=== PATIENT | female | born 1970 | race Caucasian/White ===

== ENCOUNTER 2020-05-24 07:28 | Outpatient (REF) | payer MEDICARE, MEDICAID, SELFPAY ==
--- NOTE | 2020-05-24 07:30 | MR_ITS ---
MR LUMBAR SPINE WITHOUT IV CONTRAST CLINICAL INFORMATION: Severe right S1 radiculopathy. Rule out disc herniation COMPARISON: Lumbar spine MRI 03/11/2018. TECHNIQUE: MRI of the lumbar spine was obtained using routine sequences without contrast. FINDINGS: Hypoplastic ribs present at the lowermost thoracic type segment. 5 nonrib-bearing lumbar-type vertebral bodies. There is slight grade 1 retrolisthesis of L2 on L3 and L3 on L4. Lumbar alignment is otherwise maintained. The vertebral body heights are maintained. There is disc desiccation at the L1-L2, L2-L3, L3-L4, and L5-S1 levels. There is mild disc volume loss at L5-S1. Conus terminates at the T12 level. There is a fatty filum. There are no significant soft tissue findings. L1-L2: Small annular disc bulge exhibiting a dorsal annular fissure similar to the previous study. No central canal stenosis. No foraminal stenosis. L2-L3: There is grade 1 retrolisthesis. Small annular disc bulge exhibiting a dorsal annular fissure. Mild bilateral facet arthropathy. No central canal stenosis. Mild foraminal encroachment bilaterally. L3-L4: Grade 1 retrolisthesis. There is a right paracentral/right lateral disc protrusion associated with an annular fissure continues to result in mild to moderate right foraminal stenosis, likely contacting the exiting right L3 nerve root at the right foraminal/extraforaminal junction. Moderate bilateral facet arthropathy and ligamentum flavum thickening. No central canal stenosis and a left foraminal stenosis. L4-L5: There is a small annular disc bulge and there is moderate bilateral facet arthropathy and ligamentum flavum thickening. There is no central canal stenosis. A new right foraminal disc protrusion results in mild right foraminal encroachment without exiting nerve root compression. L5-S1: There is a new large inferiorly migrating right paracentral disc extrusion that compresses the traversing right S1 nerve root within the right S1 lateral recess. IMPRESSION: - At L5-S1, there is a new large inferiorly migrating right paracentral disc extrusion that compresses the traversing right S1 nerve root within the right S1 lateral recess. - At L4-L5, there is a new right foraminal disc protrusion that results in mild right foraminal encroachment without exiting nerve root compression. - At L3-L4, a right paracentral/right lateral disc protrusion associated with an annular fissure continues to result in mild to moderate right foraminal stenosis, likely contacting the exiting right L3 nerve root at the right foraminal/extraforaminal junction.
== END 2020-05-24 07:29 | disposition home or self-care (01) ==
LOC: HO.MRI 07:28
PROVIDERS: PCP Internal Medicine Medical Oncology; Visit Provider Psychiatry & Neurology Neurology
DX: M54.17 Radiculopathy, lumbosacral region (principal); Z85.3 Personal history of malignant neoplasm of breast
CPT/HCPCS: 72148

== ENCOUNTER 2020-06-20 08:47 | Day surgery (SDC) | payer MEDICARE, MEDICAID, SELFPAY ==
[2020-06-14 11:38] VITALS: BMI 22.4
--- NOTE | 2020-06-19 09:48 | HO.ANESPROP2 ---
HPI - Anesthesia Eval Consult details Narrative: 49yo F for Colonscopy [facility] Past Medical History Medical History Anxiety Breast cancer Degenerative disc disease, cervical Depression Genital herpes Multiple sclerosis Surgical History Surgical History H/O partial thyroidectomy H/O: hysterectomy History of left knee surgery Hx of exploratory laparotomy Status post right breast lumpectomy Social History Social History Smoking Status: Current every day smoker Packs Per Day: 0.5 Cigarettes Per Day: 10.0 Years Smoked: 30 Smoked in Last 30 Days: Yes Patient Interested in Nicotine Replacement: No Patient Given Instructions on How to Stop Smoking: No Date Education Initiated: 06/14/20 Second Hand Smoke Exposure: No Use of substances other than those prescribed or required for medical reasons: Yes Substance Use Frequency: Occasionally Advance Directives: No Advance Directives Information Provided: No Advance Directives on File: No Meds Allergies Allergy/AdvReac Type Severity Reaction Status Date / Time codeine [CODEINE] Allergy Unknown UNK Verified 06/20/20 08:59 morphine [MORPHINE] Allergy Unknown HIVES Verified 06/20/20 08:59 Sulfa (Sulfonamide Allergy Unknown ITCH Verified 06/20/20 09:00 Antibiotics) [SULFA (SULFONAMIDE ANTIBIOTICS)] sulfa Allergy Unknown Itching Uncoded 06/20/20 08:59 Home Medications Medication Instructions Recorded Confirmed Type Tysabri mg IV 06/14/20 06/14/20 History acyclovir 1 tab PO BID 06/14/20 06/14/20 History anastrozole 1 tab PO DAILY 06/14/20 06/14/20 History citalopram 1 tab PO DAILY 06/14/20 06/14/20 History diazepam 1 tab PO DAILY PRN 06/14/20 06/14/20 History omeprazole 1 cap PO BID 06/14/20 06/14/20 History ondansetron 1 tab PO Q8H PRN 06/14/20 06/14/20 History tramadol 1 tab PO Q6H PRN 06/14/20 06/14/20 History Exam Exam Date and Time: June 19, 2020 0948 Height,Weight and Vital Signs: Height 5 ft 6 in Weight 63.049 kg Pertinent Lab Results Pertinent Lab Results: Laboratory Tests 03/19/20 03/19/20 07:51 07:51 WBC 9.9 Hgb 13.2 Hct 38.4 Plt Count 245 Sodium 138 Potassium 4.3 Chloride 106 BUN 23 H Creatinine 0.76 Assessment and Plan Assessment Anesthesia Assessment: Chart Reviewed
[2020-06-20 09:01] VITALS: BP 115/80; PULSE 74; RESP 16; TEMP 36; O2SAT 98
[2020-06-20] MEDS: Lactated Ringers 1,000 ML 100 ML IVCONT (09:04)
[2020-06-20 09:07] VITALS: BMI 23.3
--- NOTE | 2020-06-20 09:23 | HO.ANESPROP2 ---
[facility] Past Medical History Medical History Anxiety Breast cancer Degenerative disc disease, cervical Depression Genital herpes Multiple sclerosis Surgical History Surgical History H/O partial thyroidectomy H/O: hysterectomy History of left knee surgery Hx of exploratory laparotomy Status post right breast lumpectomy History of Problems with Anesthesia: No Social History Social History Smoking Status: Current every day smoker Packs Per Day: 0.5 Cigarettes Per Day: 10.0 Years Smoked: 30 Smoked in Last 30 Days: Yes Patient Interested in Nicotine Replacement: No Patient Given Instructions on How to Stop Smoking: No Date Education Initiated: 06/14/20 Second Hand Smoke Exposure: No Use of substances other than those prescribed or required for medical reasons: Yes Substance Use Frequency: Occasionally Advance Directives: No Advance Directives Information Provided: No Advance Directives on File: No Meds Allergies Allergy/AdvReac Type Severity Reaction Status Date / Time codeine [CODEINE] Allergy Unknown UNK Verified 06/20/20 08:59 morphine [MORPHINE] Allergy Unknown HIVES Verified 06/20/20 08:59 Sulfa (Sulfonamide Allergy Unknown ITCH Verified 06/20/20 09:00 Antibiotics) [SULFA (SULFONAMIDE ANTIBIOTICS)] sulfa Allergy Unknown Itching Uncoded 06/20/20 08:59 Home Medications Medication Instructions Recorded Confirmed Type acyclovir 1 tab PO BID 06/14/20 06/14/20 History anastrozole 1 tab PO DAILY 06/14/20 06/14/20 History citalopram 1 tab PO DAILY 06/14/20 06/14/20 History dexamethasone 1 tab PO Q12H 06/14/20 06/14/20 History diazepam 1 tab PO DAILY PRN 06/14/20 06/14/20 History ibuprofen 1 tab PO TID PRN 06/14/20 06/14/20 History natalizumab [Tysabri] mg IV 06/14/20 06/14/20 History omeprazole 1 cap PO BID 06/14/20 06/14/20 History ondansetron 1 tab PO Q8H PRN 06/14/20 06/14/20 History tramadol 1 tab PO Q6H PRN 06/14/20 06/14/20 History Exam Exam Date and Time: June 20, [id number] Height,Weight and Vital Signs: Height 5 ft 6 in Weight 65.771 kg Last Vital Signs Temp 96.8 F 06/20/20 09:01 Pulse 74 06/20/20 09:01 Resp 16 06/20/20 09:01 BP 115/80 06/20/20 09:01 Pulse Ox 98 06/20/20 09:01 Airway Mallampati Class: II TM Dist: >3cm Neck ROM: Full Heart: rrr Lungs: clear Assessment and Plan Final Anesthetic Review NPO: Yes ASA Class: II Final Preanesthetic Review: No Changes in Pt Med Stat, Meds/Allgs Chart Reviewed, Consent Obtained/Reviewed and Anes Risks/Benef Reviewed Patient Risk: Intermediate Procedure Risk: Low Anesthetic Plan Anesthetic Plan: MAC: Disposition: Standard PACU
--- NOTE | 2020-06-20 09:27 | MHC.SHP ---
Pre-Procedural Eval Section B Chief Complaint: SCREENING Details of Present Illness: Colon cancer screening Recent completion course of Dexamethasone for her back. MS on Tysabri Relevant Family History (Specify if Yes): Yes Relevant Social History: Tobacco Use (1/2 ppd) Present Medications: see Short Stay Collaborative assessment Medical History: Significant History (MS, Cigarette smoker, Breast Cancer(10/12)) History of Previous Operations: Relevant previous surgery/procedure and date(s) (Hysterectomy--1991 (endometriosis); ?SBO-ex lap-2013;Breast cancer-10/12) Allergies: Allergies Allergy/AdvReac Type Severity Reaction Status Date / Time codeine [CODEINE] Allergy Unknown UNK Verified 06/20/20 08:59 morphine [MORPHINE] Allergy Unknown HIVES Verified 06/20/20 08:59 Sulfa (Sulfonamide Allergy Unknown ITCH Verified 06/20/20 09:00 Antibiotics) [SULFA (SULFONAMIDE ANTIBIOTICS)] sulfa Allergy Unknown Itching Uncoded 06/20/20 08:59 Review of Systems Sugical H&P ROS: Negative: Constitution, Cardiovascular and Respiratory and Yes, Specify: Neurological (MS on Tysabri--stable), Hem-Onc (Breast CA on anti estrogen RX) and Gastrointestinal (+Fam hx colon cancer/polyps) Exam Surgical H&P Exam: Normal: HEENT, Normal: Heart, Normal: Lungs, Normal: Extremities and Normal: Abdomen Plan Diagnosis/Plan: Unchanged Patient has been examined and remains a candidate for the planned procedure--yes
--- NOTE | 2020-06-20 11:09 | PM.PROC ---
Brief Operative Note Date of procedure: 06/20/20 Pre-op diagnosis: COLON CANCER SCREENING, STRONG FAMILY HX, PERSONAL HX BREAST CA Post-op diagnosis: other (MULTIPLE COMPLEX COLON POLYPS ) Procedure: COLONOSCOPY WIT EXCISIONAL POLYPECTINES--VERY FLAT UNABLE TO SNARE DESPITE USE ORISE, EPI INJECTION; SPOT TATOO 2 AREAS. START TIME: 9:49TO 11:05AM. Anesthesia: MAC (MD DENNY) Surgeon: Unique Thompson Estimated blood loss (mL): 20 Pathology: other (PROX ASCEND, MID ASC (2 FLAT 0.5-1CM; PROX TRANSVERSE-DIM AND ONE CM) Condition: stable Disposition: PACU
[2020-06-20 11:11] VITALS: BP 119/56; PULSE 77; RESP 18; TEMP 36.8; O2SAT 97
--- NOTE | 2020-06-20 11:23 | PM.PROC ---
Brief Operative Note Date of procedure: 06/20/20 Pre-op diagnosis: FAMILY HX COLON CANCER AND POLYPS; SCREENING Anesthesia: MAC (MD DENNY) Surgeon: Unique Thompson Estimated blood loss (mL): 10 Pathology: other (PROX ASC COLON, ASC COLON POLYPS (2), TRANS COLON(2)--1 DIM, 1ABOUT 1CM) Condition: stable Disposition: PACU
[2020-06-20 11:26] VITALS: BP 147/63; PULSE 64; RESP 18; O2SAT 100
[2020-06-20] MEDS: Acetaminophen 325 MG TABLET 650 MG PO (11:27)
[2020-06-20 11:41] VITALS: BP 145/82; PULSE 64; RESP 16; O2SAT 98
--- NOTE | 2020-06-20 11:56 | HO.POSTANES ---
Post Anesthesia Evaluation Post Anesthesia Evaluation Vital Signs: Vital Signs Temp Pulse Resp BP Pulse Ox 06/20/20 11:41 98.3 F 64 16 145/82 H 98 06/20/20 11:26 64 18 147/63 H 100 06/20/20 11:11 98.3 F 77 18 119/56 L 97 06/20/20 09:01 96.8 F 74 16 115/80 98 Anesthesia: Monitored Mental Status: Awake Pain Control: Satisfactory Nausea/Vomiting: None Hydration: Adequate Anesthesia-Related Issues: No Anes. Related Issues
--- NOTE | 2020-06-21 03:16 | OP_ITS ---
SURGEON: Unique Thompson MD PROCEDURE PERFORMED: Colonoscopy using multiple modalities, excisional polypectomies. ESTIMATED BLOOD LOSS: Maybe 20 mL. COMPLICATIONS: None. ANESTHESIA: Monitored. ASSISTANTS:NONE SPECIMENS: Removed, proximal ascending colon, diminutive ascending colon 2 larger flat lesions, transverse colon 2 larger flat lesions, one of which was approximately a centimeter in size. PREOPERATIVE DIAGNOSES: The patient with positive family history of colon cancer and colon polyps. She herself has had a diagnosis made earlier this year of breast cancer. POSTOPERATIVE DIAGNOSES: Colonic polyps, multiple diverticulosis. DOOR HANGER: Unique Thompson MD. COMMENT: Submucosal infiltration of epinephrine in several regions. Spot ink tattooing in 2 locations near the larger friable polyps in the ascending and transverse colon. Attempts at snare cautery were thwarted by the very flat non-elevated nature of these polyps despite an attempt to elevate the region with ORISE submucosally. FINDINGS: Digital rectal exam revealed no specific lesion. Video colonoscope was introduced without difficulty. It was navigated into the rectosigmoid and sigmoid. Prep was good to excellent. The scope was slowly advanced through the colon to the level of the cecum. Appendiceal orifice was seen. Ileocecal valve was well seen and clustering of polyps was found in the ascending colon as noted in the specimen removal region. All lesions were easily visible with NBI imaging. However, despite attempts at submucosal elevation, this was not able to be achieved with ORISE agent on this patient. The original plan was to remove the tissue by snare cautery; however, the lesions were too flat to snug up snare. The polypoid tissue was removed excisionally with the cold bx forcep. Scope was withdrawn. There was a 1 to 2 mm adenomatous polyp left behind in the sigmoid area due to the fact that the areas on the right colon had been so complex. Procedure was already over an hour. Procedure start: 9:49 a.m., Conclusion 11:05 a.m. PLAN: Review of histology showed the complex polyps to be sessile serrated adenomas. There is a greater premalignant potential with this type of polyp. Repeat colonoscopy will be entertained in 6 to 12 months due to complexity of this case. Intent to review the 2 areas of excision. Remove the adenomatous polyp on the Left side. GRAFT OR IMPLANTS: No grafts or implants. CONDITION: Postprocedure, stable. MD PRIYA Greer/MATT / [id number] MTDDylan
== END 2020-06-20 12:00 | disposition home or self-care (01) ==
PROVIDERS: PCP Internal Medicine Medical Oncology; Visit Provider Internal Medicine Gastroenterology
PROC: 0DJD8ZZ Inspection of Lower Intestinal Tract, Via Natural or Artificial Opening Endoscopic (ICD-10-PCS; CPT 45378; principal; 2020-06-20 10:30)
DX: Z12.11 Encounter for screening for malignant neoplasm of colon (principal); Z80.0 Family history of malignant neoplasm of digestive organs; D12.3 Benign neoplasm of transverse colon; D12.2 Benign neoplasm of ascending colon; K57.30 Diverticulosis of large intestine without perforation or abscess without bleeding; Z85.3 Personal history of malignant neoplasm of breast; G35 Multiple sclerosis; F17.210 Nicotine dependence, cigarettes, uncomplicated; Z79.899 Other long term (current) drug therapy; Z88.2 Allergy status to sulfonamides; Z88.8 Allergy status to other drugs, medicaments and biological substances
CPT/HCPCS: 45385; 45380; 45381; 88305; J0171

== ENCOUNTER → 2020-07-15 14:20 | Outpatient (BNVA) | payer MEDICARE, MEDICAID, SELFPAY | PROVIDERS: PCP Internal Medicine Medical Oncology; Referring Provider Internal Medicine Medical Oncology; Visit Provider Nurse Practitioner Family | DX: D12.2 Benign neoplasm of ascending colon (principal); D12.3 Benign neoplasm of transverse colon; Z98.890 Other specified postprocedural states | CPT/HCPCS: 99212 ==

== ENCOUNTER 2020-11-08 12:36 | Outpatient (REF) | payer MEDICARE, MEDICAID, SELFPAY | END 2020-11-08 12:37 | disposition home or self-care (01) | LOC: HO.LAB 12:36 | PROVIDERS: Visit Provider Internal Medicine | DX: Z20.822 Contact with and (suspected) exposure to COVID-19 (principal) | CPT/HCPCS: 36415; C9803; U0003; U0005 ==

== ENCOUNTER → 2021-02-14 12:37 | Outpatient (BNVA) | payer MEDICARE, MEDICAID, SELFPAY | PROVIDERS: PCP Internal Medicine Medical Oncology; Visit Provider Nurse Practitioner Family ==

== ENCOUNTER → 2021-02-17 09:53 | Outpatient (BNVA) | payer MEDICARE, MEDICAID, SELFPAY | PROVIDERS: PCP Internal Medicine Medical Oncology; Visit Provider Nurse Practitioner Family | DX: Z13.89 Encounter for screening for other disorder (principal) | CPT/HCPCS: Q3014 ==

== ENCOUNTER 2021-06-11 09:58 | Outpatient (REF) | payer MEDICARE, MEDICAID, SELFPAY ==
[2021-06-11 10:44] LABS: Basophils Percent Auto 0.4 % (0-2); Eosinophils Absolute Auto 0.2 X10*3/uL (0.0-0.4); Hematocrit 37.1 % (37-47); Hemoglobin 12.5 g/dl (12.0-16.0); Imm Gran Abs Auto 0.02 X10*3/uL (0.00-0.03); Imm Gran Pct Auto 0.3 % (0.0-0.4); Lymphocytes Absolute Auto 3.2 X10*3/uL (1.2-4.9); Lymphocytes Percent Auto 43.7 % (20-40); MANUAL DIFF FLAG SCAN; Mean Corpuscular HGB Conc 33.7 g/dl (31.0-35.0); Mean Corpuscular Hemoglobin 30.3 pg (27.0-33.0); Mean Platelet Volume 9.9 fL (9.4-12.3); Monocytes Absolute Auto 0.6 X10*3/uL (0.1-1.2); Monocytes Percent Auto 8.1 % (2-11); NRBC Pct Auto 0.4 /100WBC (0.0-0.2); Neutrophils Absolute Auto 3.3 X10*3/uL (2.0-8.3); Neutrophils Percent Auto 44.5 % (45-73); Platelet Count 253 X10*3/uL (160-400); Red Blood Count 4.12 X10*6/uL (4.20-5.50); Red Cell Distribution Width 13.6 % (11.0-16.0); SCAN SMEAR FLAG 1; White Blood Count 7.3 X10*3/uL (4.8-10.8)
[2021-06-11 11:27] LABS: SLIDE REVIEW VERIFIED
[2021-06-20 20:41] LABS: JCV Antibody INDETERMINATE; JCV Index Value 0.25
[2021-06-20 21:16] LABS: JCV Ab Inhibition FINAL RSLT: NEGATIVE
== END 2021-06-11 09:59 | disposition home or self-care (01) ==
LOC: HO.LAB 09:58
PROVIDERS: Visit Provider Psychiatry & Neurology Neurology
DX: G35 Multiple sclerosis (principal)
CPT/HCPCS: 36415; 85025; 86711

== ENCOUNTER 2021-09-30 06:32 | Outpatient (REF) | payer MEDICARE, MEDICAID, SELFPAY ==
[2021-09-30 07:23] LABS: Hematocrit 40.4 % (37.0-47.0); Hemoglobin 13.9 g/dl (12.0-16.0); Mean Corpuscular HGB Conc 34.4 g/dl (31.0-35.0); Mean Corpuscular Hemoglobin 30.6 pg (27.0-33.0); Mean Platelet Volume 9.4 fL (9.4-12.3); NRBC Pct Auto 0.6 /100WBC (0.0-0.2); Platelet Count 301 X10*3/uL (160-400); Red Blood Count 4.54 X10*6/uL (4.20-5.50); Red Cell Distribution Width 13.8 % (11.0-16.0); White Blood Count 12.2 X10*3/uL (4.8-10.8)
[2021-09-30 07:48] LABS: Band Neutrophils Percent 0 % (3-5); Eosinophils Absolute Manual 0.5 X10*3/uL (0.0-0.4); Eosinophils Percent Manual 4 % (0-4); Lymphocytes Absolute Manual 7.7 X10*3/uL (1.2-4.9); Lymphocytes Percent Manual 63 % (20-40); Monocytes Absolute Manual 0.6 X10*3/uL (0.1-1.2); Monocytes Percent Manual 5 % (2-11); Neutrophils Absolute Manual 3.4 X10*3/uL (2.0-8.3); Neutrophils Percent Manual 28 % (45-73); Platelet Estimate NORMAL (NORMAL); Platelet Morphology Comment NORMAL; RBC Morphology NORMAL
[2021-09-30 07:56] LABS: Alanine Aminotransferase 16 U/L (0-31); Albumin Level 4.3 g/dL (3.5-5.0); Alkaline Phosphatase 80 U/L (39-117); Anion Gap 13 (12-20); Aspartate Amino Transferase 16 U/L (5-31); Bilirubin Total 0.5 mg/dL (0.0-1.0); Blood Urea Nitrogen 23 mg/dL (9-16); Carbon Dioxide 28 mmol/L (22-29); Chloride 106 mmol/L (96-108); Cholesterol 259 mg/dL; Estimated Glomerular Filt Rate > 60; Glucose Fasting 98 mg/dL (60-99); HDL Cholesterol 52 mg/dL; LDL Cholesterol Calculated 160 mg/dl; Potassium 4.5 mmol/L (3.3-5.1); Sodium 142 mmol/L (135-145); Total Protein 7.1 g/dL (6.5-8.0); Triglycerides 235 mg/dL
== END 2021-09-30 06:33 | disposition home or self-care (01) ==
LOC: HO.LAB 06:32
PROVIDERS: PCP Internal Medicine Medical Oncology; Visit Provider Internal Medicine Medical Oncology
DX: G35 Multiple sclerosis (principal); C50.911 Malignant neoplasm of unspecified site of right female breast
CPT/HCPCS: 36415; 80053; 80061; 85007; 85025; 85027

== ENCOUNTER 2021-10-01 10:19 | Outpatient (REF) | payer MEDICARE, MEDICAID, SELFPAY ==
[2021-10-03 19:11] LABS: Beta-2 Microglobulin, Serum 1.48 mg/L (< OR = 2.51)
== END 2021-10-01 10:20 | disposition home or self-care (01) ==
LOC: HO.LAB 10:19
PROVIDERS: PCP Internal Medicine Medical Oncology; Visit Provider Internal Medicine Medical Oncology
DX: D72.820 Lymphocytosis (symptomatic) (principal)
CPT/HCPCS: 36415; 82232; 88184; 88185

== ENCOUNTER 2021-10-30 13:24 | Outpatient (REF) | payer MEDICARE, MEDICAID, SELFPAY ==
--- NOTE | ~2021-10-30 | MR_ITS ---
EXAMINATION: MR LUMBAR SPINE WITHOUT CONTRAST CLINICAL INFORMATION: Question herniated disc. COMPARISON: Lumbar spine MRI 05/24/2020. TECHNIQUE: MRI of the lumbar spine was obtained using routine sequences without contrast. FINDINGS: The lumbar vertebral bodies maintain normal heights. There is trace retrolisthesis of L2 on L3. There is moderate to severe disc height loss at T11-T12, unchanged. No high-grade lumbar disc height loss is seen. Mild amount of endplate edema seen superiorly at L2. The distal spinal cord appears normal. The conus medullaris terminates normally at the T12 level. A filar lipoma is incidentally noted. The extraspinal soft tissues are within normal limits. SPINAL LEVELS: L1-L2: Disc bulging. No spinal canal or neural foraminal stenosis. L2-L3: Disc bulging with central annular fissuring. Shallow right foraminal protrusion causing mild right neural foraminal stenosis. No interval change. L3-L4: Mild disc bulging with mild to moderate facet arthropathy. No spinal canal stenosis. Right foraminal protrusion abuts the exiting right L3 nerve root without interval change. L4-L5: Disc bulging with new shallow central protrusion and moderate facet arthropathy. No spinal canal stenosis. Mild right neural foraminal stenosis without interval change. L5-S1: Disc bulging with central/right subarticular protrusion. Previously seen large right subarticular extrusion has largely resorbed. Mild narrowing of the right subarticular zone but with resolution of previously seen significant traversing nerve root compression. Mild narrowing of the right neural foramen. MR/MR lumbar spine wo con IMPRESSION: Large right subarticular extrusion at the L5-S1 level has largely resorbed. Mild asymmetric narrowing of the right subarticular zone but without traversing nerve root compression. At L3-L4 there is right foraminal protrusion abutting the exiting right L3 nerve root without interval change. At L4-L5 there is new shallow central protrusion but no nerve root compression.
== END 2021-10-30 13:25 | disposition home or self-care (01) ==
LOC: HO.MRI 13:24
PROVIDERS: PCP Internal Medicine Medical Oncology; Visit Provider Internal Medicine Medical Oncology
DX: M54.50 Low back pain, unspecified (principal)
CPT/HCPCS: 72148

== ENCOUNTER 2022-07-03 06:28 | Outpatient (REF) | payer MEDICARE, MEDICAID, SELFPAY ==
[2022-07-03 07:37] LABS: Basophils Absolute Auto 0.1 X10*3/uL (0.0-0.2); Basophils Percent Auto 0.5 % (0-2); Eosinophils Absolute Auto 0.5 X10*3/uL (0.0-0.4); Eosinophils Percent Auto 4.9 % (0-4); Hematocrit 38.7 % (37.0-47.0); Hemoglobin 13.3 g/dl (12.0-16.0); Imm Gran Abs Auto 0.03 X10*3/uL (0.00-0.03); Imm Gran Pct Auto 0.3 % (0.0-0.4); Lymphocytes Absolute Auto 5.8 X10*3/uL (1.2-4.9); Lymphocytes Percent Auto 52.6 % (20-40); MANUAL DIFF FLAG SCAN; Mean Corpuscular HGB Conc 34.4 g/dl (31.0-35.0); Mean Corpuscular Hemoglobin 31.2 pg (27.0-33.0); Mean Corpuscular Volume 90.8 fL (80.0-98.0); Mean Platelet Volume 9.7 fL (9.4-12.3); Monocytes Absolute Auto 0.9 X10*3/uL (0.1-1.2); Monocytes Percent Auto 8.1 % (2-11); NRBC Pct Auto 0.3 /100WBC (0.0-0.2); Neutrophils Absolute Auto 3.7 x10*3/uL (2.0-8.3); Neutrophils Percent Auto 33.6 % (45-73); Platelet Count 276 X10*3/uL (160-400); Red Blood Count 4.26 X10*6/uL (4.20-5.50); Red Cell Distribution Width 13.4 % (11.0-16.0); SCAN SMEAR FLAG 1
[2022-07-03 07:55] LABS: Alanine Aminotransferase 28 U/L (0-31); Albumin Level 4.2 g/dL (3.5-5.0); Alkaline Phosphatase 77 U/L (39-117); Aspartate Amino Transferase 19 U/L (5-31); Bilirubin Total 0.2 mg/dL (0.0-1.0); Blood Urea Nitrogen 20 mg/dL (9-16); Calcium 9.9 mg/dL (8.4-10.2); Cholesterol 281 mg/dL; Estimated Glomerular Filt Rate > 60; Glucose Fasting 107 mg/dL (60-99); HDL Cholesterol 41 mg/dL; LDL Cholesterol Calculated 161 mg/dl; Total Protein 6.9 g/dL (6.5-8.0); Triglycerides 399 mg/dL
[2022-07-03 08:12] LABS: SLIDE REVIEW VERIFIED
[2022-07-03 08:15] LABS: Anion Gap 16 (12-20); Carbon Dioxide 26 mmol/L (22-29); Chloride 105 mmol/L (96-108); Potassium 5.4 mmol/L (3.3-5.1); Sodium 142 mmol/L (135-145)
== END 2022-07-03 06:29 | disposition home or self-care (01) ==
LOC: HO.LAB 06:28
PROVIDERS: PCP Internal Medicine Medical Oncology; Visit Provider Internal Medicine Medical Oncology
DX: G35 Multiple sclerosis (principal); D72.820 Lymphocytosis (symptomatic)
CPT/HCPCS: 36415; 80053; 80061; 85025

== ENCOUNTER 2022-12-10 12:50 | Outpatient (REF) | payer MEDICARE, MEDICAID, SELFPAY ==
[2022-12-10 14:07] LABS: CDiff Gene PCR NEGATIVE (Negative)
[2022-12-11 09:18] LABS: Adenovirus F 40/41 Not Detected (Not Detect.); Astrovirus Not Detected (Not Detect.); Campylobacter Not Detected (Not Detect.); Cryptosporidium Not Detected (Not Detect.); Cyclospora cayetanensis Not Detected (Not Detect.); E. coli EAEC Not Detected (Not Detect.); E. coli EPEC Not Detected (Not Detect.); E. coli ETEC Not Detected (Not Detect.); E. coli STEC Not Detected (Not Detect.); Entamoeba histolytica Not Detected (Not Detect.); Giardia lamblia Not Detected (Not Detect.); Plesiomonas shigelloides Not Detected (Not Detect.); Rotavirus A Not Detected (Not Detect.); Salmonella Not Detected (Not Detect.); Sapovirus Not Detected (Not Detect.); Shigella sp./EIEC Not Detected (Not Detect.); Vibrio Not Detected (Not Detect.); Vibrio Cholerae Not Detected (Not Detect.); Yersinia enterocolitica Not Detected (Not Detect.)
[2022-12-11 09:20] LABS: Norovirus GI/GII Detected (Not Detect.)
== END 2022-12-10 12:51 | disposition home or self-care (01) ==
LOC: HO.LNP 12:50
PROVIDERS: Visit Provider Internal Medicine Medical Oncology
DX: R19.7 Diarrhea, unspecified (principal)
CPT/HCPCS: 87493; 87507

== ENCOUNTER 2022-12-15 06:01 | Outpatient (REF) | payer MEDICARE, MEDICAID, SELFPAY ==
[2022-12-15 07:34] LABS: Basophils Absolute Auto 0.1 X10*3/uL (0.0-0.2); Basophils Percent Auto 0.5 % (0-2); Eosinophils Absolute Auto 0.7 X10*3/uL (0.0-0.4); Eosinophils Percent Auto 6.6 % (0-4); Hematocrit 38.8 % (37.0-47.0); Hemoglobin 13.1 g/dl (12.0-16.0); Imm Gran Abs Auto 0.02 X10*3/uL (0.00-0.03); Imm Gran Pct Auto 0.2 % (0.0-0.4); Lymphocytes Percent Auto 57.6 % (20-40); MANUAL DIFF FLAG SCAN; Mean Corpuscular HGB Conc 33.8 g/dl (31.0-35.0); Mean Corpuscular Hemoglobin 30.2 pg (27.0-33.0); Mean Corpuscular Volume 89.4 fL (80.0-98.0); Monocytes Absolute Auto 0.8 X10*3/uL (0.1-1.2); Monocytes Percent Auto 7.5 % (2-11); NRBC Pct Auto 0.3 /100WBC (0.0-0.2); Neutrophils Absolute Auto 2.9 x10*3/uL (2.0-8.3); Neutrophils Percent Auto 27.6 % (45-73); Platelet Count 309 X10*3/uL (160-400); Red Blood Count 4.34 X10*6/uL (4.20-5.50); SCAN SMEAR FLAG 1; White Blood Count 10.4 X10*3/uL (4.8-10.8)
[2022-12-15 08:00] LABS: Alanine Aminotransferase 19 U/L (0-31); Alkaline Phosphatase 72 U/L (39-117); Anion Gap 13 (12-20); Aspartate Amino Transferase 19 U/L (5-31); Bilirubin Total 0.2 mg/dL (0.0-1.0); Blood Urea Nitrogen 22 mg/dL (9-16); Calcium 8.8 mg/dL (8.4-10.2); Carbon Dioxide 25 mmol/L (22-29); Chloride 108 mmol/L (96-108); Cholesterol 239 mg/dL; Estimated Glomerular Filt Rate > 60; Glucose Random 104 mg/dL (60-115); HDL Cholesterol 42 mg/dL; LDL Cholesterol Calculated 165 mg/dl; Potassium 4.6 mmol/L (3.3-5.1); Sodium 141 mmol/L (135-145); Total Protein 6.4 g/dL (6.5-8.0); Triglycerides 160 mg/dL
[2022-12-15 08:46] LABS: SLIDE REVIEW VERIFIED
[2022-12-24 22:44] LABS: JCV Antibody INDETERMINATE; JCV Index Value 0.24
[2022-12-24 23:03] LABS: JCV Ab Inhibition FINAL RSLT: NEGATIVE
== END 2022-12-15 06:02 | disposition home or self-care (01) ==
LOC: HO.LAB 06:01
PROVIDERS: Absent Provider Psychiatry & Neurology Neurology; PCP Internal Medicine Medical Oncology; Visit Provider Internal Medicine Medical Oncology
DX: G35 Multiple sclerosis (principal); D72.820 Lymphocytosis (symptomatic); E78.5 Hyperlipidemia, unspecified
CPT/HCPCS: 36415; 80053; 80061; 85025; 86711

== ENCOUNTER 2023-04-19 07:52 | Emergency (ER) | payer MEDICARE, MEDICAID, SELFPAY ==
--- NOTE | ~2023-04-19 | CT_ITS ---
EXAMINATION: CT angio head neck CLINICAL INFORMATION: Severe dizziness. Question carotid dissection. COMPARISON: Brain MRI 08/11/2017. TECHNIQUE: Easement Man images were obtained. A CT angiogram of the head and neck was performed in the arterial phase after the intravenous administration of 70 mL Omnipaque 350. Pre and delayed postcontrast images of the head were also obtained. 3D images were processed on an independent workstation under concurrent supervision. Arterial stenoses are measured in accordance with NASCET criteria or similar method if applicable. This CT examination was performed using dose optimization techniques as appropriate, including one or more of the following: Automated exposure control, iterative reconstruction, and adjustment of technique factors (mA and/or kVp) according to patient size (this includes techniques or standardized protocols for targeted exams where dose is matched to indication/reason for exam). Fleischner Society criteria for the followup of incidental pulmonary nodules was implemented if appropriate. Total exam dose-length product 2297 mGy-cm FINDINGS: Head: There is no acute intracranial hemorrhage or abnormal extra-axial collection. Postcontrast images reveal no abnormal intracranial mass or enhancement. No intracranial mass effect or midline shift. Lateral and third ventricles are proportionate to the subarachnoid spaces. No hydrocephalus. Scattered nonspecific foci of hypoattenuation are visualized within the periventricular white matter that coincide with the patient's clinical history of known multiple sclerosis. Cheung-white matter differentiation is otherwise preserved and there is no evidence of acute territorial infarct. CT angiogram neck: The aortic arch apex is normal. Origins of the major aortic branches are patent. Common carotid arteries and carotid bifurcations are normal. No stenosis of the extracranial internal carotid arteries. The cervical segments of the vertebral arteries as well as their origins are patent. CT angiogram head: Intracranial internal carotid arteries are normal. The intradural vertebral artery segments and basilar artery are normal. Anterior, middle, and posterior cerebral artery complexes are normal. No intracranial large vessel occlusion. Other: There chronic changes related to a right thyroid lobectomy. There are multiple nodules within the left lobe of the thyroid gland. Soft tissues of the neck are otherwise normal. No pathologically enlarged cervical lymph nodes. Lung apices are clear. CT/CT angio head neck IMPRESSION: Unremarkable examination in that there is no stenosis of the cervical carotid or vertebral arteries. No evidence of acute arterial dissection. No intracranial large vessel occlusion. There are scattered chronic small vessel ischemic changes within the periventricular white matter that coincide with the patient's clinical history of known multiple sclerosis. No evidence of acute territorial infarct or hemorrhage. No abnormal intracranial mass or enhancement.
--- NOTE | ~2023-04-19 | MR_ITS ---
EXAMINATION: MRI BRAIN WITHOUT CONTRAST CLINICAL INFORMATION: Dizziness. Question cerebellar infarcts. COMPARISON: CT angiogram of the head and neck 04/19/2023. Brain MRI 09/09/2018. TECHNIQUE: Multiplanar MR imaging of the brain was performed without contrast. FINDINGS: There are multiple foci of T2 FLAIR signal hyperintensity primarily involving the supratentorial and infratentorial white matter in a pattern consistent with the patient's clinical history of multiple sclerosis. A few of the supratentorial lesions are new and compared to the most recent prior brain MRI from 09/09/2018. No acute territorial infarct. No pathological magnetic susceptibility artifact. Intracranial vascular flow voids are grossly maintained. There is no intracranial mass effect or midline shift. No abnormal extra-axial collection. Lateral and third ventricles are somewhat prominent which may represent loss of parenchymal volume. No hydrocephalus. Midline structures including the cervicomedullary junction are normal. No acute bone marrow signal changes. No mastoid middle ear effusion. Mild to moderate paranasal sinus disease primarily affecting the ethmoid air cells and left frontal sinus. Globes and orbits are grossly symmetric. MR/MR head/brain wo con IMPRESSION: There is chronic white matter disease in a pattern consistent with the patient's clinical history of multiple sclerosis. There are a few white matter lesions that are new when compared to the patient's most recent prior brain MRI from 09/09/2018. The possibility of active demyelination cannot be assessed on the basis of this examination due to the absence of intravenous contrast. Grossly no evidence of acute territorial infarct or hemorrhage.
[2023-04-19 08:00] VITALS: BP 118/76; BP 138/92; PULSE 70; PULSE 72; RESP 16; TEMP 36.6; O2SAT 97; O2SAT 99; BMI 25.8
--- NOTE | 2023-04-19 08:10 | PC.NURSE ---
Provider stated to give PO meclizine once Pt stomach feels better from IV medication.
[2023-04-19] MEDS: 0.9 % Sodium Chloride 1,000 ML 999 ML IV (08:31)
[2023-04-19] MEDS: Metoclopramide HCl 10 MG/2 ML VIAL IVPUSH (08:34)
[2023-04-19] MEDS: diphenhydrAMINE HCL 50 MG/ML VIAL 25 MG IVPUSH (08:34)
--- NOTE | 2023-04-19 08:36 | ED.DIZZY ---
HPI - Dizziness General Chief Complaint: Dizziness Stated Complaint: DIZZY,NAUSEA,VOMITING,WEAK PER EMS Time Seen by Provider: 04/19/23 08:24 Source: patient Mode of arrival: EMS History of Present Illness HPI Narrative: This is a 52 years old of female presented to the emergency department via ambulance with the chief complaint of dizziness nausea vomiting she describes the dizziness as spinning. Symptoms started on and off since she was feeling better on Wednesday and then again yesterday today MD elicited complaint: dizziness Pertinent past history: other (History of breast cancer history of MS) Onset (ago): day(s) (4) Timing: gradual onset Severity: moderate Description: sense of movement and room spinning History of similar symptoms: No Exacerbating factors: nothing Relieving factors: remaining still Associated symptoms: denies other symptoms Related Data Home Medications Medication Instructions Recorded Confirmed acyclovir 400 mg tablet 1 tab PO BID 06/14/20 06/14/20 anastrozole 1 mg tablet 1 tab PO DAILY 06/14/20 06/14/20 citalopram 40 mg tablet 1 tab PO DAILY 06/14/20 06/14/20 diazepam 5 mg tablet 1 tab PO DAILY PRN Anxiety 06/14/20 06/14/20 natalizumab 300 mg/15 mL mg IV 06/14/20 06/14/20 intravenous solution (Tysabri) omeprazole 20 mg capsule,delayed 1 cap PO BID 06/14/20 06/14/20 release ondansetron 8 mg disintegrating 1 tab PO Q8H PRN Nausea 06/14/20 06/14/20 tablet tramadol 50 mg tablet 1 tab PO Q6H PRN abdominal pain 06/14/20 06/14/20 Previous Rx's Medication Instructions Recorded docusate sodium 100 mg capsule 100 mg PO BEDTIME #30 caps 02/17/21 psyllium husk 0.52 gram capsule 0.52 g PO BID #60 caps 02/17/21 (Metamucil) Allergies Allergy/AdvReac Type Severity Reaction Status Date / Time codeine [CODEINE] Allergy Unknown UNK Verified 04/19/23 08:03 morphine [MORPHINE] Allergy Unknown HIVES Verified 04/19/23 08:03 Sulfa (Sulfonamide Allergy Unknown ITCH Verified 04/19/23 08:03 Antibiotics) [SULFA (SULFONAMIDE ANTIBIOTICS)] sulfa Allergy Unknown Itching Uncoded 06/20/20 08:59 Review of Systems Constitutional: Constitutional: Reports no additional constitutional complaints ENT: Reports system reviewed and no additional complaints, except as documented Respiratory: Respiratory: Reports no additional respiratory complaints Musculoskeletal: Musculoskeletal: Reports no additional musculoskeletal complaints PMFSH Past Medical History Medical History Anxiety Breast cancer Degenerative disc disease, cervical Depression Genital herpes Multiple sclerosis Surgical History H/O partial thyroidectomy H/O: hysterectomy History of left knee surgery Hx of colonoscopy Hx of exploratory laparotomy Status post right breast lumpectomy Social History Social History Cigarette Packs Per Day: 0.5 Cigarettes Per Day: 10.0 Years Smoked: 30 Smoked in Last 30 Days: Yes Second Hand Smoke Exposure: No Use of substances other than those prescribed or required for medical reasons: Yes Substance Use Type: Marijuana Substance Use Frequency: Daily Last Used Substance: Hours (ago) Advance Directives: No Advance Directives Information Provided: Yes Physical Exam Vital Signs: Vital Signs: Last Vital Signs Temp 98.2 F 04/19/23 15:08 Pulse 80 04/19/23 15:08 Resp 18 04/19/23 15:08 BP 138/80 04/19/23 15:08 Pulse Ox 98 04/19/23 15:08 O2 Del Method Room Air 04/19/23 15:08 BMI result Body Mass Index 25.8 Const: General: cooperative Nutritional Appearance: well nourished Orientation/consciousness: patient oriented x3 Limitations: no limitations HEENT: Head: Yes normal to inspection Ears: hearing grossly normal bilaterally Face and sinus: Yes normal facial exam Eyes: Other: No nystagmus noted General: appearance normal, both eyes and all related structures Alignment and Position: alignment normal EOM: EOMs intact bilaterally Neck: Neck: Yes normal visual inspection Chest: Chest palpation & inspection: normal inspection of the chest Resp: Effort & Inspection: normal respiratory effort Cardio: Jugular venous distension: no JVD Rate: regular rate Rhythm: regular rhythm GI: Inspection: Yes normal to inspection Palpation (GI): Soft to palpation Auscultation: normal bowel sounds Skin: General skin exam: no rashes or lesions noted Neuro: Other: She is awake alert oriented x3 she has no focal, she has negative nystagmus, she has a normal cerebellar test (normal [id number]) General: patient oriented x3 Cranial nerves: Yes CN's II-XII intact bilaterally Medications Administered Discontinued Medications Generic Name Dose Route Start Last Admin Trade Name Ramiroq PRN Reason Stop Dose Admin Diphenhydramine HCl 25 mg 04/19/23 08:30 04/19/23 08:34 Diphenhydramine Hcl 50 Mg/Ml Vial IVPUSH 04/19/23 08:31 25 mg ONCE ONE Administration Sodium Chloride 1,000 mls @ 999 mls/hr 04/19/23 08:15 04/19/23 10:11 Ns IV 04/19/23 09:15 Infused .Q1H1M YAS Infusion Iohexol 70 ml 04/19/23 10:07 04/19/23 10:07 Iohexol 350 Mg/Ml 100 Ml Infus..Btl IV 04/19/23 10:08 70 ml ONCE ONE Administration Meclizine HCl 25 mg 04/19/23 08:33 04/19/23 10:10 Meclizine Hcl 25 Mg Tablet PO 04/19/23 08:34 25 mg ONCE ONE Administration Metoclopramide HCl 10 mg 04/19/23 08:30 04/19/23 08:34 Metoclopramide Hcl 10 Mg/2 Ml Vial IVPUSH 04/19/23 08:31 10 mg ONCE ONE Administration Medical Decision Making Medical Decision Making [facility] Narrative: Patient presented with chief complaint of dizziness will obtain labs imaging will treat symptomatically and reassess @4.23 PM we are waiting for MRI brain signed out to Dr Zamudio Differential Diagnosis Differential Diagnoses: The differential diagnosis associated with the presentation includes Peripheral vertigo/stroke-carotid dissection Admission/Observation Consideration of admission/observation: Escalation of care including admission/observation considered Lab Data [facility] Lab Attestation statement: I reviewed the patient's lab results. 04/19/23 08:28 04/19/23 08:28 Labs: Lab Results 04/19/23 04/19/23 Range/Units 08:28 08:28 WBC 10.2 (4.8-10.8) X10*3/uL RBC 4.42 (4.20-5.50) X10*6/uL Hgb 13.5 (12.0-16.0) g/dl Hct 39.0 (37.0-47.0) % MCV 88.2 (80.0-98.0) fL MCH 30.5 (27.0-33.0) pg MCHC 34.6 (31.0-35.0) g/dl RDW 13.9 (11.0-16.0) % Plt Count 257 (160-400) X10*3/uL MPV 9.7 (9.4-12.3) fL Immature Gran % (Auto) 0.3 (0.0-0.4) % Neut % (Auto) 41.5 L (45-73) % Lymph % (Auto) 48.0 H (20-40) % Clay % (Auto) 6.4 (2-11) % Eos % (Auto) 3.5 (0-4) % Baso % (Auto) 0.3 (0-2) % Lymph # (Auto) 4.9 (1.2-4.9) X10*3/uL Clay # (Auto) 0.7 (0.1-1.2) X10*3/uL Eos # (Auto) 0.4 (0.0-0.4) X10*3/uL Baso # (Auto) 0.0 (0.0-0.2) X10*3/uL Abs Immat Gran (auto) 0.03 (0.00-0.03) X10*3/uL Absolute Neuts (auto) 4.2 (2.0-8.3) x10*3/uL Absolute Nucleated RBC 0.030 H (0.0-0.012) X10*3/uL Nucleated RBC % (auto) 0.3 H (0.0-0.2) /100WBC Sodium 140 (135-145) mmol/L Potassium 4.2 (3.3-5.1) mmol/L Chloride 110 H (96-108) mmol/L Carbon Dioxide 24 (22-29) mmol/L Anion Gap 10 L (12-20) BUN 23 H (9-16) mg/dL Creatinine 0.69 (0.5-1.4) mg/dL Estim Creat Clear Calc 94.9 Estimated GFR > 60 Random Glucose 106 (60-115) mg/dL Calcium 9.1 (8.4-10.2) mg/dL Total Bilirubin 0.2 (0.0-1.0) mg/dL AST 14 (5-31) U/L ALT 16 (0-31) U/L Alkaline Phosphatase 62 (39-117) U/L Total Protein 6.8 (6.5-8.0) g/dL Albumin 4.0 (3.5-5.0) g/dL Independent Interpretation I performed an independent interpretation of an: CT Scan Interpretation: negative ct head Radiology Impression Discussion of test interpretation with radiology: I have reviewed the radiologist's reading. Radiologist Impression: CT angiogram head: Intracranial internal carotid arteries are normal. The intradural vertebral artery segments and basilar artery are normal. Anterior, middle, and posterior cerebral artery complexes are normal. No intracranial large vessel occlusion. Other: There chronic changes related to a right thyroid lobectomy. There are multiple nodules within the left lobe of the thyroid gland. Soft tissues of the neck are otherwise normal. No pathologically enlarged cervical lymph nodes. Lung apices are clear. CT/CT angio head neck IMPRESSION: Unremarkable examination in that there is no stenosis of the cervical carotid or vertebral arteries. No evidence of acute arterial dissection. No intracranial large vessel occlusion. There are scattered chronic small vessel ischemic changes within the periventricular white matter that coincide with the patient's clinical history of known multiple sclerosis. No evidence of acute territorial infarct or hemorrhage. No abnormal intracranial mass or enhancement. ? Dictated By: Jayden Jo MD Signed By: <Electronically signed by Jayden Jo MD in OV> 04/19/23 1113 Chronic Conditions MS Discharge Plan Discharge Clinical Impression: Dizziness Patient Disposition: Still a Patient Prescriptions: No Action anastrozole 1 mg tablet 1 tab PO DAILY citalopram 40 mg tablet 1 tab PO DAILY acyclovir 400 mg tablet 1 tab PO BID tramadol 50 mg tablet 1 tab PO Q6H PRN (Reason: abdominal pain) ondansetron 8 mg tablet,disintegrating 1 tab PO Q8H PRN (Reason: Nausea) omeprazole 20 mg capsule,delayed release(DR/EC) 1 cap PO BID diazepam 5 mg tablet 1 tab PO DAILY PRN (Reason: Anxiety) Tysabri 300 mg/15 mL solution IV psyllium husk [Metamucil] 0.52 gram capsule 0.52 g PO BID Qty: 60 4RF docusate sodium 100 mg capsule 100 mg PO BEDTIME Qty: 30 3RF
[2023-04-19 08:43] LABS: MANUAL DIFF FLAG NO
[2023-04-19 08:50] LABS: Basophils Percent Auto 0.3 % (0-2); Eosinophils Absolute Auto 0.4 X10*3/uL (0.0-0.4); Eosinophils Percent Auto 3.5 % (0-4); Hemoglobin 13.5 g/dl (12.0-16.0); Imm Gran Abs Auto 0.03 X10*3/uL (0.00-0.03); Imm Gran Pct Auto 0.3 % (0.0-0.4); Lymphocytes Absolute Auto 4.9 X10*3/uL (1.2-4.9); Mean Corpuscular HGB Conc 34.6 g/dl (31.0-35.0); Mean Corpuscular Hemoglobin 30.5 pg (27.0-33.0); Mean Corpuscular Volume 88.2 fL (80.0-98.0); Mean Platelet Volume 9.7 fL (9.4-12.3); Monocytes Absolute Auto 0.7 X10*3/uL (0.1-1.2); Monocytes Percent Auto 6.4 % (2-11); NRBC Pct Auto 0.3 /100WBC (0.0-0.2); Neutrophils Absolute Auto 4.2 x10*3/uL (2.0-8.3); Neutrophils Percent Auto 41.5 % (45-73); Platelet Count 257 X10*3/uL (160-400); Red Blood Count 4.42 X10*6/uL (4.20-5.50); Red Cell Distribution Width 13.9 % (11.0-16.0); White Blood Count 10.2 X10*3/uL (4.8-10.8)
[2023-04-19 09:03] LABS: Alanine Aminotransferase 16 U/L (0-31); Alkaline Phosphatase 62 U/L (39-117); Anion Gap 10 (12-20); Aspartate Amino Transferase 14 U/L (5-31); Bilirubin Total 0.2 mg/dL (0.0-1.0); Blood Urea Nitrogen 23 mg/dL (9-16); Calcium 9.1 mg/dL (8.4-10.2); Carbon Dioxide 24 mmol/L (22-29); Chloride 110 mmol/L (96-108); Creatinine Clr Calc Pharmacy 94.9; Estimated Glomerular Filt Rate > 60; Glucose Random 106 mg/dL (60-115); Potassium 4.2 mmol/L (3.3-5.1); Sodium 140 mmol/L (135-145); Total Protein 6.8 g/dL (6.5-8.0)
--- NOTE | 2023-04-19 09:46 | PC.NURSE ---
Pt out for CT.
[2023-04-19] MEDS: iohexoL 350 MG/ML 100 ML INFUS..BTL 70 ML IV (10:07)
[2023-04-19] MEDS: Meclizine HCl 25 MG TABLET PO (10:10)
--- NOTE | 2023-04-19 14:10 | PC.NURSE ---
MRI screening form completed and faxed to MRI at this time
[2023-04-19 15:08] VITALS: BP 138/80; PULSE 80; RESP 18; TEMP 36.8; O2SAT 98
--- NOTE | 2023-04-19 17:18 | PC.NURSE ---
Pt returned from MRI, another pt family member alerted staff that they saw patient walk out of ED in her cloths, stating I am fucken leaving pt made no attempt to alert staff she wanted to leave. Security notified for concerns that she still had an IV in place. PT seen leaving at [phone] from main door. Charge nurse aware Fran STEELE called however pt resides in [place] [employer] reported they would check the area and call hospital back. Charge nurse attempted to call patient with no answer. MRI brought pt bracelet back to ED, currently being held.
--- NOTE | 2023-04-19 17:41 | PC.NURSE ---
[employer] returned call that they spoke with patient, she was home safe, she called her BF to come pick her up because she did not feel like being there anymore, she reported to them that she took her IV out at home on her own. She reported she will need to come back in a couple of days for an apt and would get her bracelet then. Bracelet given to security at this time. Security updated, charge nurse aware.
== END 2023-04-19 17:44 | disposition left against medical advice (07) ==
PROVIDERS: Emergency Provider Emergency Medicine; PCP Internal Medicine Medical Oncology
DX: R42 Dizziness and giddiness (principal); R11.2 Nausea with vomiting, unspecified; G35 Multiple sclerosis; F17.210 Nicotine dependence, cigarettes, uncomplicated; F12.90 Cannabis use, unspecified, uncomplicated; Z85.3 Personal history of malignant neoplasm of breast; Z79.899 Other long term (current) drug therapy
CPT/HCPCS: 36415; 70496; 70498; 70551; 80053; 85025; 96361; 96374; 96375; 99284; 99285; J1200; J2765; Q9967

== ENCOUNTER 2023-06-09 06:43 | Outpatient (REF) | payer MEDICARE, MEDICAID, SELFPAY ==
[2023-06-09 07:01] LABS: Basophils Percent Auto 0.3 % (0-2); Eosinophils Absolute Auto 0.4 X10*3/uL (0.0-0.4); Hematocrit 38.3 % (37.0-47.0); Hemoglobin 13.3 g/dl (12.0-16.0); Imm Gran Abs Auto 0.03 X10*3/uL (0.00-0.03); Imm Gran Pct Auto 0.3 % (0.0-0.4); Lymphocytes Absolute Auto 5.4 X10*3/uL (1.2-4.9); MANUAL DIFF FLAG SCAN; Mean Corpuscular HGB Conc 34.7 g/dl (31.0-35.0); Mean Corpuscular Hemoglobin 30.8 pg (27.0-33.0); Mean Corpuscular Volume 88.7 fL (80.0-98.0); Mean Platelet Volume 9.6 fL (9.4-12.3); Monocytes Absolute Auto 0.7 X10*3/uL (0.1-1.2); Monocytes Percent Auto 6.4 % (2-11); NRBC Pct Auto 0.5 /100WBC (0.0-0.2); Neutrophils Absolute Auto 4.2 x10*3/uL (2.0-8.3); Platelet Count 259 X10*3/uL (160-400); Red Blood Count 4.32 X10*6/uL (4.20-5.50); Red Cell Distribution Width 13.7 % (11.0-16.0); SCAN SMEAR FLAG 1; White Blood Count 10.7 X10*3/uL (4.8-10.8)
[2023-06-09 07:19] LABS: SLIDE REVIEW VERIFIED
[2023-06-22 23:53] LABS: JCV Antibody INDETERMINATE; JCV Index Value 0.29
[2023-06-23 00:24] LABS: JCV Ab Inhibition FINAL RSLT: NEGATIVE
== END 2023-06-09 06:44 | disposition home or self-care (01) ==
LOC: HO.LAB 06:43
PROVIDERS: PCP Internal Medicine Medical Oncology; Visit Provider Psychiatry & Neurology Neurology
DX: G35 Multiple sclerosis (principal)
CPT/HCPCS: 36415; 85025; 86711

== ENCOUNTER 2023-08-31 12:41 | Outpatient (REF) | payer MEDICARE, MEDICAID, SELFPAY ==
--- NOTE | ~2023-08-31 | XR_ITS ---
EXAMINATION: XR CLAVICLE, RIGHT CLINICAL INFORMATION: Right clavicle pain COMPARISON: None available. TECHNIQUE: Two views of the right clavicle. FINDINGS: The clavicle is intact. The bones and soft tissues are normal. No fracture. Acromioclavicular joint alignment is anatomic. Mild acromioclavicular degenerative changes are present. XR/XR clavicle RT IMPRESSION: Normal right clavicle. Mild degenerative changes of the right AC joint.
== END 2023-08-31 12:42 | disposition home or self-care (01) ==
LOC: HO.HMGCX 12:41
PROVIDERS: PCP Internal Medicine Medical Oncology; Visit Provider Internal Medicine Medical Oncology
DX: C50.911 Malignant neoplasm of unspecified site of right female breast (principal); M25.511 Pain in right shoulder
CPT/HCPCS: 73000

== ENCOUNTER 2023-12-29 06:22 | Outpatient (REF) | payer MEDICARE, MEDICAID, SELFPAY ==
[2023-12-29 08:03] LABS: Basophils Absolute Auto 0.1 X10*3/uL (0.0-0.2); Basophils Percent Auto 0.4 % (0-2); Eosinophils Absolute Auto 0.4 X10*3/uL (0.0-0.4); Eosinophils Percent Auto 3.3 % (0-4); Hematocrit 40.2 % (37.0-47.0); Hemoglobin 13.9 g/dl (12.0-16.0); Imm Gran Abs Auto 0.04 X10*3/uL (0.00-0.03); Imm Gran Pct Auto 0.3 % (0.0-0.4); Lymphocytes Percent Auto 50.3 % (20-40); MANUAL DIFF FLAG SCAN; Mean Corpuscular HGB Conc 34.6 g/dl (31.0-35.0); Mean Corpuscular Hemoglobin 30.8 pg (27.0-33.0); Mean Corpuscular Volume 89.1 fL (80.0-98.0); Mean Platelet Volume 9.8 fL (9.4-12.3); Monocytes Absolute Auto 0.9 X10*3/uL (0.1-1.2); Monocytes Percent Auto 6.7 % (2-11); NRBC Pct Auto 0.5 /100WBC (0.0-0.2); Neutrophils Absolute Auto 5.2 x10*3/uL (2.0-8.3); Platelet Count 306 X10*3/uL (160-400); Red Blood Count 4.51 X10*6/uL (4.20-5.50); Red Cell Distribution Width 13.7 % (11.0-16.0); SCAN SMEAR FLAG 1; White Blood Count 13.3 X10*3/uL (4.8-10.8)
[2023-12-29 08:07] LABS: Lymphocytes Absolute Auto 6.7 X10*3/uL (1.2-4.9)
[2023-12-29 08:37] LABS: Alanine Aminotransferase 16 U/L (0-31); Albumin Level 4.3 g/dL (3.5-5.0); Alkaline Phosphatase 56 U/L (39-117); Anion Gap 14 (12-20); Aspartate Amino Transferase 15 U/L (5-31); Bilirubin Total 0.2 mg/dL (0.0-1.0); Blood Urea Nitrogen 20 mg/dL (9-16); Calcium 9.8 mg/dL (8.4-10.2); Carbon Dioxide 26 mmol/L (22-29); Chloride 106 mmol/L (96-108); Cholesterol 259 mg/dL (<200); Estimated Glomerular Filt Rate > 60; Glucose Fasting 115 mg/dL (60-99); HDL Cholesterol 46 mg/dL (>40); LDL Cholesterol Calculated 167 mg/dL (<100); Sodium 142 mmol/L (135-145); Total Protein 7.4 g/dL (6.5-8.0); Triglycerides 234 mg/dL (<150)
[2023-12-29 09:32] LABS: SLIDE REVIEW VERIFIED
[2023-12-29 10:21] LABS: Erythrocyte Sedimentation Rate 13 MM/HR (0-20)
[2023-12-31 08:13] LABS: Carbohydrate Antigen 19-9 7 U/mL (<34)
== END 2023-12-29 06:23 | disposition home or self-care (01) ==
LOC: HO.LAB 06:22
PROVIDERS: PCP Internal Medicine Medical Oncology; Visit Provider Internal Medicine Medical Oncology
DX: G35 Multiple sclerosis (principal); R63.4 Abnormal weight loss; R53.1 Weakness
CPT/HCPCS: 36415; 80053; 80061; 85025; 85652; 86301

== ENCOUNTER 2024-02-17 08:03 | Outpatient (REF) | payer MEDICARE, MEDICAID, SELFPAY ==
--- NOTE | ~2024-02-17 | MR_ITS ---
EXAMINATION: MR BRAIN WITHOUT AND WITH CONTRAST CLINICAL INFORMATION: Multiple sclerosis follow up study. COMPARISON: Prior MRI dated 04/19/2023.. TECHNIQUE: Multiplanar, multisequential imaging was obtained without and with intravenous administration of contrast. Intravenous contrast: Intravenous contrast: Gadavist 6.5 mL. FINDINGS: The overall pattern of disease is without significant change. No new dominant white matter lesions are identified. There is no abnormal parenchymal enhancement to suggest active inflammation. The gradient refocused acquisition is normal. Diffuse brain parenchymal volume loss again noted with ex vacuo dilatation of the ventricles. No diffusion abnormalities are identified to suggest an acute or subacute infarct. The ventricles are normal in size. No mass effect or midline shift is seen. No extra-axial fluid collections are seen. There is no abnormal enhancement. The craniovertebral junction, marrow signal, and midline structures are normal. The major intracranial flow voids at the level of the [place] are preserved. The dural venous sinus flow voids are maintained. The mastoid air cells and paranasal sinuses are well aerated. There is worsened right-sided facet arthropathy at the C3-C4 level with low signal abnormality on T1-weighted imaging, potentially reflecting either sclerosis versus marrow edema. MR/MR head/brain wo/w con IMPRESSION: No evidence of disease progression. No focal parenchymal enhancement to indicate active inflammation. Moderate diffuse brain parenchymal volume loss and moderate disease burden.
--- NOTE | ~2024-02-17 | MR_ITS ---
EXAMINATION: MR CERVICAL SPINE WITHOUT AND WITH CONTRAST CLINICAL INFORMATION: Relapsing/remitting MS COMPARISON: MRI cervical spine 08/11/2017 TECHNIQUE: MRI of the cervical spine was obtained using routine sequences without and with contrast. A total of 6.5 mL Gadavist was administered intravenously. FINDINGS: Grossly stable pattern of short segment intramedullary T2 hyperintense lesions throughout the cervical and imaged thoracic cord without definite new lesions identified within limitations of motion artifact. No enhancement to suggest active demyelination. The craniocervical junction is intact. Sagittal alignment is maintained. Trace anterolisthesis at C3-C4. Vertebral body heights are normal without acute compression fracture. No suspicious enhancing osseous lesion. Multilevel disc desiccation with increased moderate C6-C7 and otherwise mild disc height loss. New enhancing type I Modic endplate changes at C6-C7 and eccentric to the right at C3-C4. Decreased previously seen presumably degenerative/inflammatory marrow edema associated with the right T1-T2 facet joint. There are multilevel degenerative changes with level by level detail as follows: C2-C3: Shallow central disc protrusion with redemonstrated advanced hypertrophic right and milder left facet arthrosis. No spinal canal stenosis. Stable mild right without significant left neural foraminal stenosis. C3-C4: Annular disc bulge with marked uncovertebral joint hypertrophy and severe hypertrophic bilateral facet arthrosis with new enhancing marrow signal abnormality of the right C3 and C4 articular pillars and associated enhancing periarticular synovitis, presumably degenerative/inflammatory. No spinal canal stenosis. Possibly increased moderate to severe right and similar moderate left neural foraminal stenosis. C4-C5: Disc osteophyte complex with right greater than left uncovertebral joint hypertrophy and severe hypertrophic bilateral facet arthrosis. No spinal canal stenosis. Stable moderate to severe bilateral neural foraminal stenosis. C5-C6: Disc osteophyte complex with bilateral uncovertebral joint hypertrophy and severe bilateral hypertrophic facet arthrosis. No spinal canal stenosis. Stable moderate left and increased moderate to severe right neural foraminal stenosis. C6-C7: Disc osteophyte complex with marked uncovertebral joint hypertrophy and severe hypertrophic right with milder left facet arthrosis. Stable mild spinal canal, severe left, and mild right neural foraminal stenosis. C7-T1: Severe hypertrophic right and moderate left facet arthrosis. No spinal canal stenosis. Stable mild right greater than left neural foraminal stenosis. No epidural fluid collection, mass, or hematoma. No significant abnormalities of the paraspinal musculature. The flow voids of the major cervical vessels are maintained. Intracranial findings discussed separately. Several thyroid nodules in the left lobe, largest measuring 1.9 cm, for which further evaluation with thyroid ultrasound is advised. MR/MR cervical spine wo/w con IMPRESSION: 1. Grossly stable pattern of demyelinating disease throughout the cervical and imaged thoracic cord without definite new lesions identified within limitations of motion artifact. No enhancement to suggest active demyelination. 2. Cervical spondylosis has slightly progressed since prior. Increased moderate C6-C7 disc height loss with new enhancing type I Modic endplate changes at this level and to a lesser extent on the right at C3-C4. Severe hypertrophic right C3-C4 facet arthropathy with new enhancing marrow edema and periarticular inflammatory change/synovitis, presumably degenerative/inflammatory. Possibly increased moderate to severe right-sided neural foraminal narrowing at C3-C4 and C5-C6. Stable mild C6-C7 spinal canal stenosis. Additional multilevel neural foraminal narrowing is unchanged. 3. Several thyroid nodules in the left lobe, largest measuring 1.9 cm, for which further evaluation with thyroid ultrasound is advised.
[2024-02-17] MEDS: gadobutroL 7.5 ML VIAL IVPUSH (09:19)
== END 2024-02-17 08:04 | disposition home or self-care (01) ==
LOC: HO.MRI 08:03
PROVIDERS: PCP Internal Medicine Medical Oncology; Visit Provider Psychiatry & Neurology Neurology
DX: G35 Multiple sclerosis (principal)
CPT/HCPCS: 70553; 72156; A9585

== ENCOUNTER 2024-12-25 09:52 | Outpatient (REF) | payer MEDICARE, MEDICAID, SELFPAY ==
--- NOTE | 2024-12-25 | ECG_ITS ---
Test Reason : COPD Blood Pressure : */* mmHG Vent. Rate : 80 BPM Atrial Rate : 80 BPM P-R Int : 148 ms QRS Dur : 96 ms QT Int : 374 ms P-R-T Axes : 67 52 48 degrees QTcB Int : 431 ms Normal sinus rhythm Normal ECG No previous ECGs available Referred By: Jayden Henriquez Electronically Signed By: SURAJ WHALEY
--- NOTE | ~2024-12-25 | XR_ITS ---
CLINICAL HISTORY: CHRONIC OBSTRUCTIVE PULMONARY DISEASE 2 view chest x-ray Comparison: None Findings: No consolidation or effusion. Heart size is normal. No acute fracture. IMPRESSION: 1. No acute findings. This document has been electronically signed by: Genia Amaya MD on 12/25/2024 22:59:11
[2024-12-25 10:57] LABS: Basophils Absolute Auto 0.1 X10*3/uL (0.0-0.2); Basophils Percent Auto 0.5 % (0-2); Eosinophils Absolute Auto 0.4 X10*3/uL (0.0-0.4); Eosinophils Percent Auto 3.4 % (0-4); Hematocrit 40.7 % (37.0-47.0); Hemoglobin 13.6 g/dl (12.0-16.0); Imm Gran Abs Auto 0.05 X10*3/uL (0.00-0.03); Imm Gran Pct Auto 0.4 % (0.0-0.4); MANUAL DIFF FLAG SCAN; Mean Corpuscular HGB Conc 33.4 g/dl (31.0-35.0); Mean Corpuscular Hemoglobin 29.6 pg (27.0-33.0); Mean Corpuscular Volume 88.5 fL (80.0-98.0); Mean Platelet Volume 9.6 fL (9.4-12.3); Monocytes Absolute Auto 0.8 X10*3/uL (0.1-1.2); Monocytes Percent Auto 6.6 % (2-11); NRBC Pct Auto 0.7 /100WBC (0.0-0.2); Neutrophils Absolute Auto 4.8 x10*3/uL (2.0-8.3); Neutrophils Percent Auto 37.1 % (45-73); Platelet Count 308 X10*3/uL (160-400); Red Cell Distribution Width 14.1 % (11.0-16.0); SCAN SMEAR FLAG 1; White Blood Count 12.8 X10*3/uL (4.8-10.8)
[2024-12-25 10:59] LABS: Lymphocytes Absolute Auto 6.7 X10*3/uL (1.2-4.9)
--- OUTSIDE RECORDS SUMMARY | 2024-12-25 11:00 | XMS_ITS ---
Author Organization Jayden Henriquez III, MD Address [address] [place] [address] DR [address]IAMSON Violeta JOSE MEZA [id number] Care Team Providers Care Asset Availability Leader Name Role Phone Jayden Henriquez Primary Care Provider [phone] Amber MORFIN, [facility] Unavailable Unavailabl e Allergies Allergen (clinical drug ingredient) Drug/Non Drug Allergy documented on EMR Reaction Allergy Type Onset Date Status sulfacetamide Sulfacetamide Unknown Drug Allergy Active morphine Morphine Sulfate Unknown Drug Allergy Active codeine Codeine Sulfate Unknown Drug Allergy A ctive REASON FOR VISIT Tysabri infusion Medications Medication SIG (Take, Route, Frequency, Duration) Notes Start Date End Date Status Meclizine HCl 25 MG 1 tablet as needed Orally every 8 hrs prn vertigo 04/21/2023 Active Tysabri 300 MG/15ML 15 ml Intravenous Active Gabapentin 300 MG TAKE 1 CAPSULE BY [facility] THREE TIMES DAILY FOR 15 DAYS Active dexAMETHasone 2 MG 1 tablet Orally ever y 12 hrs 09/01/2023 Active Nicotine Step 1 21 MG/24HR 1 patch to sk in Transdermal Once a day 08/03/2023 Active Triamcinolone Acetonide 0.1 % 1 application Externally Twice a day 10/14/2022 Active Ibuprofen 400 MG TAKE 1 TABLET BY [facility] THREE TIMES DAILY WITH FOOD OR MILK FOR 14 DAYS NEEDED Active Cyclobenzaprine HCl 10 MG TAKE 1 TABLET BY MOUTH THREE TIMES DAILY FOR 10 DAYS NEEDED FOR MUSCLE SPASM Active Acyclovir 400 MG TAKE 1 TABLET BY [facility] TWICE DAILY Active Ondansetron 8 MG DISSOLVE 1 TABLET ON THE TONGUE EVERY 8 HOURS FOR 10 DAYS for nausea Orally shaunna 8 hours Active Citalopram Hydrobromide 40 MG TAKE 1 TABLET BY MOUTH EVERY DAY Active Omeprazole 20 MG 1 capsule 1 hour bef ore meal Orally Twice a day Active Anastrozole 1 MG TAKE 1 TABLET BY [facility] TH EVERY DAY Active Social History Tobacco Use: Social History Observation Description Date Details (start date - stop date) Former Smoker NA - NA Sex Assigned At : Social History Observation Description Sex Assigned At Female Tobacco Control (Standard) Question Answer Notes Tobacco use: Former smoker Vital Signs Blood pressure systolic 132 mm Hg 12/14/19 25 Blood pressure diastolic 76 mm Hg 025 Heart Rate 84 /min 12/13/2024 Height 66 in 12/13/2024 Weight 145 lbs 12/13/2024 BMI 23.4 kg/m2 12/13/2024 Encounters Encounter Location Date Provider Diagnosis Jayden Henriquez III, MD [address] [place] [address] [place] [address] 12/13/2024 Jayden Henriquez Multiple sclerosis G 35 ; Depression F32.9 ; Insomnia G47.00 ; Episodic tension-type headache, not intractable G44.219 ; Invasive lobular carcinoma of right breast in female C50.911 and Former smoker Z87.891 Assessments Encounter Date Diagnosis (ICD Code) Assessment Notes Treatment Notes Treatment Clinical Notes 12/13/2024 Multiple sclerosis (ICD-10 - G35) She has had no exacerbation of multiple sclerosis and is asymptomatic at this time.Her next infusion was scheduled today. 12/13/2024 Depression (ICD-10 - F32.9) She is being treated for this problem and seems to have recovered completely. She is compliant with all of her medications. 12/13/2024 Insomnia (ICD-10 - G47.00) I have recommended she use either an antihistamine or melatonin. She is no longer requiring prescription medication. 12/13/2024 Episodic tension-type headache, not intractable (ICD-10 - G44.219) She denies having any recent headaches lately. 12/13/2024 Invasive lobular carcinoma of right breast in female (ICD-10 - C50.911) She will continue on anastrozole. There was no sign of a new primary breast cancer or recurrence today. 12/13/2024 Former smoker (ICD-10 - Z87.891) We made a plan to continue abstinence in times of stress or illness. Plan Of Treatment Medication Medication Name Sig Start Date Stop Date Notes Meclizine HCl 25 MG 1 tablet as needed O rally every 8 hrs prn vertigo 04/21/2023 Tysabri 300 MG/15ML 15 ml Intravenous Gabapentin 300 MG TAKE 1 CAPSULE BY [facility] THREE TIMES DAILY FOR 15 DAYS dexAMETHasone 2 MG 1 tablet Orally every 12 hrs 09/01/2023 Nicotine Step 1 21 MG/24HR 1 patch to sk in Transdermal Once a day 08/03/2023 Triamcinolone Acetonide 0.1 % 1 applicat ion Externally Twice a day 10/14/2022 Ibuprofen 400 MG TAKE 1 TABLET BY [facility] TH THREE TIMES DAILY WITH FOOD OR MILK FOR 14 DAYS NEEDED Cyclobenzaprine HCl 10 MG TAKE 1 TABLET BY MOUTH THREE TIMES DAILY FOR 10 DAYS NEEDED FOR MUSCLE SPASM Acyclovir 400 MG TAKE 1 TABLET BY [facility] TH TWICE DAILY Ondansetron 8 MG DISSOLVE 1 TABLET ON THE TONGUE EVERY 8 HOURS FOR 10 DAYS for nausea Orally shaunna 8 hours Citalopram Hydrobromide 40 MG TAKE 1 TAB LET BY MOUTH EVERY DAY Omeprazole 20 MG 1 capsule 1 hour bef ore meal Orally Twice a day Anastrozole 1 MG TAKE 1 TABLET BY [facility] TH EVERY DAY Next Appt Details Follow Up: 4 Weeks, Reason: Tysabri no tests Provider Name:Jayden Henriquez, 12/29/2024 09:15:00 AM, [address] [place] [address] [address], [place], [id number], Provider Name:Jayden Henriquez, 01/10/2025 09:00:00 AM, [address] [place] [address] [address], [place], [phone], Procedure Notes * Category Sub-Category Detail Notes Chemotherapy Calculated BSA in me ters squared (based on the height and weight of the patient): ___ Start and End Time: ___, 9:30 am, 10:30 am Site: ___, left hand Consent: verbal consent was o btained prior to procedure Medications given: ___, Tysabri 300 mg Monitored by: Yamel Alba CMA port flush flushed with 10cc of saline and 1:100 heparin solution route IV Progress Notes * Sun SPENCEB: 8 (54 yo F)Acc No.[id number]:12/13/2024 Patient:?Salome SPENCE Provider:?Jayden Henriquez MD :1970???Age:54 Y???Sex:Female D ate:12/13/2024 Address:[address] [place] [address] [address], [id number] Subjective: * Chief Complaints: * ???Tysabri infusion * HPI: ???COVID-19 Screening:?He returns to the office for another dose of Tysabri monoclonal antibody therapy.? She is treated mostly for chronic relapsing multiple sclerosis.? We found no contraindication to treating her today.? Was conducted without incident with the office in stable and ambulatory condition. ?Questions?Have you had any new onset fever, chills, cough, congestion, sore throat, shortness of breath, muscle aches??No * ROS:?General/Constitutional:?pain?only normal aches and pains.?Chills?denies.?Fatigue?admits.?Fever?denies.?ENT:?Decreased hearing?denies.?Respiratory:?Cough?denies.?Cardiovascular:?Chest pain with exertion?denies.?Dyspnea on exertion?denies.?Shortness of breath?denies.?Gastrointestinal:?Constipation?occasional.?Decreased appetite?denies.?Diarrhea?denies.?Heartburn?occasional.?Nausea?denies.?Rectal bleeding?denies.?Vomiting?denies.?Hematology:?bruising?denies.?petechiae?denies.?Swollen glands?none have been noted.?Genitourinary:?Frequent urination?denies.?Musculoskeletal:?Muscle aches?denies.?Painful joints?denies.?Sciatica?denies.?Weakness?denies.?Skin:?Itching?denies.?Rash?denies.?Skin lesion(s)?denies.?Neurologic:?Difficulty speaking?denies.?Dizziness?denies.?Headache?denies.?Low back pain?denies.?Psychiatric:?Depressed mood?which is mild.? * Medical History:? * Surgical History:?Hysterecto my without oophorectomy [id number] laparotomy, [facility], Dr. Mercedes for blockage 2014partial thyroidectomy for benigh nodule 1994left patellar surgery age 9lumpectomy and sentinel node biopsy right breast, invasive lobular carcinoma 2019No history * Hospitalization/Major Diagno stic Procedure:?No history * Family History:?Father: iram martinez 67 yrs, CAD, diagnosed with HTN.?Mother: alive 66 yrs, well, diagnosed with HTN.?1 brother(s) , 1 sister(s) - healthy. 2 son(s) - healthy. .? Her sister, Elvi, had thyroid cancer several years ago. She has two sons Leo 27, Sylvain 23 alive and well. A maternal uncle at the age of 36 of cancer, a maternal aunt at 62 but had breast cancer at 26 and MORT[employer]AGE [employer]IST cancer, maternal aunt 60 of cancer, maternal grandmother of 60 of breast cancer. A paternal grandmother had breast cancer at the age of 55. A maternal grandfather had colon cancer at the age of 32. She is not aware of any family history of mental illness or addiction or substance abuse. Mother diagnosed with alzheimer's. * Social History:?Tobacco Use:?Tobacco Control (Standard)?Tobacco use:?Former smoker ???She was born in [place]. Her mother is a nurse. The patient is disabled from multiple sclerosis. 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 She is single with no children. Smoking: Patient smokes 10 cigarettes a day. * Medications:?TakingOmeprazol e 20 MG Capsule Delayed Release 1 capsule 1 hour before meal Orally Twice a day Citalopram Hydrobromide 40 MG Tablet TAKE 1 TABLET BY MOUTH EVERY DAY Anastrozole 1 MG Tablet TAKE 1 TABLET BY MOUTH EVERY DAY Ondansetron 8 MG Tablet Disintegrating DISSOLVE 1 TABLET ON THE TONGUE EVERY 8 HOURS FOR 10 DAYS for nausea Orally shaunna 8 hours Acyclovir 400 MG Tablet TAKE 1 TABLET BY MOUTH TWICE DAILY Cyclobenzaprine HCl 10 MG Tablet TAKE 1 TABLET BY MOUTH THREE TIMES DAILY FOR 10 DAYS NEEDED FOR MUSCLE SPASM Ibuprofen 400 MG Tablet TAKE 1 TABLET BY MOUTH THREE TIMES DAILY WITH FOOD OR MILK FOR 14 DAYS NEEDED Triamcinolone Acetonide 0.1 % Cream 1 application Externally Twice a day Tysabri 300 MG/15ML Concentrate 15 ml Intravenous Meclizine HCl 25 MG Tablet 1 tablet as needed Orally every 8 hrs prn vertigo Nicotine Step 1 21 MG/24HR Patch 24 Hour 1 patch to skin Transdermal Once a day dexAMETHasone 2 MG Tablet 1 tablet Orally every 12 hrs Gabapentin 300 MG Capsule TAKE 1 CAPSULE BY MOUTH THREE TIMES DAILY FOR 15 DAYS Medication List reviewed and reconciled with the patientTaking Omeprazole 20 MG Capsule Delayed Release 1 capsule 1 hour before meal Orally Twice a day Taking Citalopram Hydrobromide 40 MG Tablet TAKE 1 TABLET BY MOUTH EVERY DAY Taking Anastrozole 1 MG Tablet TAKE 1 TABLET BY MOUTH EVERY DAY Taking Ondansetron 8 MG Tablet Disintegrating DISSOLVE 1 TABLET ON THE TONGUE EVERY 8 HOURS FOR 10 DAYS for nausea Orally shaunna 8 hours Taking Acyclovir 400 MG Tablet TAKE 1 TABLET BY MOUTH TWICE DAILY Taking Cyclobenzaprine HCl 10 MG Tablet TAKE 1 TABLET BY MOUTH THREE TIMES DAILY FOR 10 DAYS NEEDED FOR MUSCLE SPASM Taking Ibuprofen 400 MG Tablet TAKE 1 TABLET BY MOUTH THREE TIMES DAILY WITH FOOD OR MILK FOR 14 DAYS NEEDED Taking Triamcinolone Acetonide 0.1 % Cream 1 application Externally Twice a day Taking Tysabri 300 MG/15ML Concentrate 15 ml Intravenous Taking Meclizine HCl 25 MG Tablet 1 tablet as needed Orally every 8 hrs prn vertigo Taking Nicotine Step 1 21 MG/24HR Patch 24 Hour 1 patch to skin Transdermal Once a day Taking dexAMETHasone 2 MG Tablet 1 tablet Orally every 12 hrs Taking Gabapentin 300 MG Capsule TAKE 1 CAPSULE BY MOUTH THREE TIMES DAILY FOR 15 DAYS Medication List reviewed and reconciled with the patient * Allergies:?Morphine SulfateC odeine SulfateSulfacetamideno[Allergies Verified] Objective: * Vitals:?Ht: 66, Wt: 145, BMI :23.4, BP: 132/76, HR: 84, Ht-cm: 167.64, Wt-k.77. * Examination: ???General Examination: ?GENERAL APPEARANCE:?pleasant, well nourished, well developed, in no acute distress, calm and relaxed, woman.?HEAD:?atraumatic, normocephalic.?EYES:?eomi, perrla, anicteric, conjugate.?EARS:?normal.?NOSE:?septum intact.?ORAL CAVITY:?normal, unremarkable.?NECK/THYROID:?no jugular venous distention, no carotid bruit, thyroid normal.?LYMPH NODES:?no enlarged lymph nodes,spleen normal.?SKIN:?no suspicious lesions, anicteric.?HEART:?no clicks, gallops, murmurs, or rubs, regular rhythm, S1, S2 normal, no s3, or vascular bruits.?LUNGS:?, diminished breath sounds throughout, good air movement.?BREASTS:?Not examined.?ABDOMEN:?bowel sounds normal, no ascites, no organomegaly, no mass.?RECTAL EXAM:?not examined.?MUSCULOSKELETAL:?extremities unremarkable, no clubbing, cyanosis or edema.?PERIPHERAL PULSES:?normal.?NEUROLOGIC:?alert and oriented, cranial nerves 2-12 grossly intact, deep tendon reflexes 2+ symmetrical, motor strength normal upper and lower extremities, sensory exam intact.?PSYCH:?alert, oriented.? Assessment: * Assessment: 1.?Multiple sclerosis - G35 (Primary)???Notes :She has had no exacerbation of multiple sclerosis and is asymptomatic at this time.Her next infusion was scheduled today.???2.?Depression - F32.9???Notes :She is being treated for this problem and seems to have recovered completely. She is compliant with all of her medications.???3.?Insomnia - G47.00???Notes :I have recommended she use either an antihistamine or melatonin. She is no longer requiring prescription medication.???4.?Episodic tension-type headache, not intractable - G44.219???Notes :She denies having any recent headaches lately.???5.?Invasive lobular carcinoma of right breast in female - C50.911???Notes :She will continue on anastrozole. There was no sign of a new primary breast cancer or recurrence today.???6.?Former smoker - Z87.891???Notes :We made a plan to continue abstinence in times of stress or illness.??? Plan: * Treatment: 2.?Others? Continue Omeprazole Capsule Delayed Release, 20 MG, 1 capsule 1 hour before meal, Orally, Twice a day;?Continue Acyclovir Tablet, 400 MG, TAKE 1 TABLET BY MOUTH TWICE DAILY;?Continue Cyclobenzaprine HCl Tablet, 10 MG, TAKE 1 TABLET BY MOUTH THREE TIMES DAILY FOR 10 DAYS NEEDED FOR MUSCLE SPASM;?Continue Ibuprofen Tablet, 400 MG, TAKE 1 TABLET BY MOUTH THREE TIMES DAILY WITH FOOD OR MILK FOR 14 DAYS NEEDED;?Continue Meclizine HCl Tablet, 25 MG, 1 tablet as needed, Orally, every 8 hrs prn vertigo;?Continue Gabapentin Capsule, 300 MG, TAKE 1 CAPSULE BY MOUTH THREE TIMES DAILY FOR 15 DAYS.?? * Procedures:?Chemotherapy:?Calculated BSA in meters squared (based on the height and weight of the patient):?___.?Start and End Time:?___, 9:30 am, 10:30 am.?Site:?___, left hand.?Consent:?verbal consent was obtained prior to procedure.?Medications given:?___, Tysabri 300 mg.?Monitored by:?Yamel St.G, [employer].?port flush?flushed with 10cc of saline and 1:100 heparin solution.?route?IV.? * Procedure Codes:?[id number] IZUMAB [id number] CHEMO, IV INFUSION, 1 HR * Preventive Medicine:? ??Counseling:?Smoking/Tobacco Use?Patient counseled on the dangers of tobacco use and urged to quit.?12/13/2024 * Follow Up:?4 Weeks (Reason: Tysabri no tests) * Images: * Sign off status: Completed true * Provider:?Jayden Henriquez MD Date:?11/22 Generated for Kelvini aga/Fabriziog/eTransmitting on:?12/25/2024 11:00 AM EDT History and Physical Notes * HPI (History of Present Illness) Category Sub-Category Detail Notes COVID-19 Screening Questions Have you had any new onset fever, chills, cough, congestion, sore throat, shortness of breath, muscle aches?: No Examination Category Sub-Category Detail Notes General Examination GENERAL APPEARANCE: pleasant , well nourished, well developed, in no acute distress, calm and relaxed, woman HEAD: atraumatic, normocep halic EYES: eomi, perrla, anicte joanie, conjugate EARS: normal NOSE: septum intact NECK/THYROID: no jugular venous di stention, no carotid bruit, thyroid normal HEART: no clicks, gallops, murmurs, or rubs, regular rhythm, S1, S2 normal, no s3, or vascular bruits LUNGS: , diminished breath sounds throughout, good air movement ABDOMEN: bowel sounds normal, no ascites, no organomegaly, no mass NEUROLOGIC: alert and oriented, cranial nerves 2-12 grossly intact, deep tendon reflexes 2+ symmetrical, motor strength normal upper and lower extremities, sensory exam intact SKIN: no suspicious lesion s, anicteric PERIPHERAL PULSES: normal BREASTS: Not examined MUSCULOSKELETAL: extremities unremark able, no clubbing, cyanosis or edema LYMPH NODES: no enlarged lymph no ilana,spleen normal RECTAL EXAM: not examined PSYCH: alert, oriented ORAL CAVITY: normal, unremarkable
--- OUTSIDE RECORDS SUMMARY | 2024-12-25 11:01 | XMS_ITS | Patient Health Record ---
Author Organization Jayden Henriquez III, MD Address [address] [place] [address] [place] [address] Care Team Providers Care Electrocardiogram Technician Name Role Phone Jayden Henriquez Primary Care Provider Amber MORFIN, Rosa M Unavailable Unavailabl e Allergies Allergen (clinical drug ingredient) Drug/Non Drug Allergy documented on EMR Reaction Allergy Type Onset Date Status sulfacetamide Sulfacetamide Unknown Drug Allergy Active morphine Morphine Sulfate Unknown Drug Allergy Active codeine Codeine Sulfate Unknown Drug Allergy A ctive Results Component Value Reference Range Notes Complete Blood Count Auto Di ff Reviewed date:12/31/2023 10:04:05 AM Interpretation: Performing Lab:[facility], [address] [place] [id number] Notes/Report: White Blood Count 13.3 4.8-10.8 X10*3/uL Red Blood Count 4.51 4.20-5.50 X10*6/uL Hemoglobin 13.9 12.0-16.0 g/dl Hematocrit 40.2 37.0-47.0 % Mean Corpuscular Volume 89.1 80.0-98.0 fL Mean Corpuscular Hemoglobin 30.8 27.0-33.0 pg Mean Corpuscular HGB Conc 34.6 31.0-35.0 g/dl Red Cell Distribution Width 13.7 11.0-16.0 % Platelet Count 306 160-400 X10*3/uL Mean Platelet Volume 9.8 9.4-12.3 fL Neutrophils Percent Auto 39.0 45-73 % Imm Gran Pct Auto 0.3 0.0-0.4 % Lymphocytes Percent Auto 50.3 20-40 % Monocytes Percent Auto 6.7 2-11 % Eosinophils Percent Auto 3.3 0-4 % Basophils Percent Auto 0.4 0-2 % NRBC Pct Auto 0.5 0.0-0.2 /100WBC Neutrophils Absolute Auto 5.2 2.0-8.3 x10*3/u L Imm Gran Abs Auto 0.04 0.00-0.03 X10*3/uL Lymphocytes Absolute Auto 6.7 1.2-4.9 X10*3/u L Monocytes Absolute Auto 0.9 0.1-1.2 X10*3/uL Eosinophils Absolute Auto 0.4 0.0-0.4 X10*3/u L Basophils Absolute Auto 0.1 0.0-0.2 X10*3/uL NRBC Abs Auto 0.060 0.0-0.012 X10*3/uL White Blood Count 13.3 4.8-10.8 X10*3/uL Red Blood Count 4.51 4.20-5.50 X10*6/uL Hemoglobin 13.9 12.0-16.0 g/dl Hematocrit 40.2 37.0-47.0 % Mean Corpuscular Volume 89.1 80.0-98.0 fL Mean Corpuscular Hemoglobin 30.8 27.0-33.0 pg Mean Corpuscular HGB Conc 34.6 31.0-35.0 g/dl Red Cell Distribution Width 13.7 11.0-16.0 % Platelet Count 306 160-400 X10*3/uL Mean Platelet Volume 9.8 9.4-12.3 fL Neutrophils Percent Auto 39.0 45-73 % Imm Gran Pct Auto 0.3 0.0-0.4 % Lymphocytes Percent Auto 50.3 20-40 % Monocytes Percent Auto 6.7 2-11 % Eosinophils Percent Auto 3.3 0-4 % Basophils Percent Auto 0.4 0-2 % NRBC Pct Auto 0.5 0.0-0.2 /100WBC Neutrophils Absolute Auto 5.2 2.0-8.3 x10*3/u L Imm Gran Abs Auto 0.04 0.00-0.03 X10*3/uL Lymphocytes Absolute Auto 6.7 1.2-4.9 X10*3/u L Monocytes Absolute Auto 0.9 0.1-1.2 X10*3/uL Eosinophils Absolute Auto 0.4 0.0-0.4 X10*3/u L Basophils Absolute Auto 0.1 0.0-0.2 X10*3/uL NRBC Abs Auto 0.060 0.0-0.012 X10*3/uL C ORRECTED REPORT C ORRECTED REPORT Erythrocyte Sedimentation Ra te Reviewed date:12/31/2023 10:04:05 AM Interpretation: Performing Lab:[facility], [address] [place] [phone] Notes/Report: Erythrocyte Sedimentation Rate 13 0-20 MM/HR Patients with polycythemia and many hemoglobin abnormalities may have depressed sed rates whereas patients with anemia may have elevated sed rates. Comprehensive Whit[place]. Panel Fa st Reviewed date:12/31/2023 10:04:05 AM Interpretation: Performing Lab:[facility], [address] [place] [phone] Notes/Report: Sodium 142 135-145 mmol/L Potassium 4.0 3.3-5.1 mmol/L Chloride 106 96-108 mmol/L Carbon Dioxide 26 22-29 mmol/L Anion Gap 14 12-20 Blood Urea Nitrogen 20 9-16 mg/dL Creatinine 0.73 0.5-1.4 mg/dL Estimated Glomerular Filt Rate > 60 NOTE: For -Maced[place] individuals, multiply the result by 1.210. Chronic Kidney Disease: Estimated GFR < 60 mL/min/1.73m2 Severe Kidney Disease: Estimated GFR < 15 mL/min/1.73m2 Glucose Fasting 115 60-99 mg/dL A fasting glucose from 100-125 mg/dl is considered impaired (pre-diabetes). Calcium 9.8 8.4-10.2 mg/dL Bilirubin Total 0.2 0.0-1.0 mg/dL Aspartate Amino Transferase 15 5-31 U/L Alanine Aminotransferase 16 0-31 U/L Total Protein 7.4 6.5-8.0 g/dL Albumin Level 4.3 3.5-5.0 g/dL Alkaline Phosphatase 56 39-117 U/L Carbohydrate Antigen 19-9 Reviewed date:12/31/2023 10:04:05 AM Interpretation: Performing Lab:[address] [phone] Notes/Report: Carbohydrate Antigen 19-9 7 <34 U/mL This test was performed using the Siemens chemiluminescent method. Values obtained from different assay methods cannot be used interchangeably. CA 19-9 levels, regardless of value, should not be interpreted as absolute evidence of the presence or absence of disease. THIS TEST WAS PERFORMED AT: [facility] [address] [place] [phone] HOLDEN KEEN MD SLIDE REVIEW Reviewed date:12/31/2023 10:04:05 AM Interpretation: Performing Lab:[address] [address] Notes/Report: SLIDE REVIEW VERIFIED MR head/brain wo/w con Reviewed date:04/09/2024 08:53:12 AM Interpretation: Performing Lab: Notes/Report: [address] [address] Magnetic Resonance Report Signed Patient: Salome Spence MR#: [id number] 63 : 1970 Acct:[id number] Age/Sex: 53 / F ADM Date: 02/17/24 Loc: HO.MRI Attending Dr: Renee Clark MD Ordering Physician: Renee Clark MD Date of Service: 02/17/24 Procedure(s): MR head/brain wo/w con Accession Number(s): [id number] cc: Jayden Henriquez MD; Renee Clark MD EXAMINATION: MR BRAIN WITHOUT AND WITH CONTRAST CLINICAL INFORMATION: Multiple sclerosis follow up study. COMPARISON: Prior MRI dated 04/19/2023.. TECHNIQUE: Multiplanar, multisequential imaging was obtained without and with intravenous administration of contrast. Intravenous contrast: Intravenous contrast: Gadavist 6.5 mL. FINDINGS: The overall pattern of disease is without significant change. No new dominant white matter lesions are identified. There is no abnormal parenchymal enhancement to suggest active inflammation. The gradient refocused acquisition is normal. Diffuse brain parenchymal volume loss again noted with ex vacuo dilatation of the ventricles. No diffusion abnormalities are identified to suggest an acute or subacute infarct. The ventricles are normal in size. No mass effect or midline shift is seen. No extra-axial fluid collections are seen. There is no abnormal enhancement. The craniovertebral junction, marrow signal, and midline structures are normal. The major intracranial flow voids at the level of the gambell of Colin are preserved. The dural venous sinus flow voids are maintained. The mastoid air cells and paranasal sinuses are well aerated. There is worsened right-sided facet arthropathy at the C3-C4 level with low signal abnormality on T1-weighted imaging, potentially reflecting either sclerosis versus marrow edema. MR/MR head/brain wo/w con IMPRESSION: No evidence of disease progression. No focal parenchymal enhancement to indicate active inflammation. Moderate diffuse brain parenchymal volume loss and moderate disease burden. Dictated By: KEE MACHADO MD Signed By: <Electronically signed by KEE MACHADO MD in OV> 03/07/24 1455 DD/ 0950 TD/TT: Online Advertising Manager: [place] [id number] Magnetic Resonance Report Signed Patient: Bebeto Spence MR#: [id number] 63 : 1970 Acct:[id number] Age/Sex: 53 / F ADM Date: 02/17/24 Loc: HO.MRI Attending Dr: Judy Clark MD Ordering Physician: Renee Clark MD Date of Service: 02/17/24 Procedure(s): MR head/brain wo/w con Accession Number(s): [id number] cc: Jayden Henriquez MD; Renee Clark MD EXAMINATION: MR BRAIN WITHOUT AND WITH CONTRAST CLINICAL INFORMATION: Multiple sclerosis follow up study. COMPARISON: Prior MRI dated 04/19/2023.. TECHNIQUE: Multiplanar, multisequential imaging was obtained without and with intravenous administration of contrast. Intravenous contrast: Intravenous contrast : Gadavist 6.5 mL. FINDINGS: The overall pattern of disease is without significant change. No new dominant white matte r lesions are identified. There is no abnormal parenchymal enhancem ent to suggest active inflammation. The gradient refocused acquisitio n is normal. Diffuse brain parenchymal volume loss again noted with ex vacuo dilatation of the ventricles. No diffusion abnormalities are identified to suggest an acute or subacute infarct. The ventricles are normal in size. No mass effect or midline shift is seen. No extra-axial fluid collections are seen . There is no abnormal enhancement. The craniovertebral junction, marrow signal, and midline structures are normal. The major intracranial flow voids at the level of the gambell of Colin are preserved . The dural venous sinus flow voids are maintained. The mastoid air cell s and paranasal sinuses are well aerated. There is worsened right-sided facet arthropathy at the C3-C4 level with low signal abnormali ty on T1-weighted imaging, potentially reflecting either sclerosis maryjane shyla marrow edema. MR/MR head/brain wo/w con IMPRESSION: No evidence of disea se progression. No focal parenchymal enhancement to indicate active inflammation. Moderate diffuse brain parenchymal volume loss and moderate disease burden. Dictated By: KEE MACHADO MD Signed By: <Electronically signed by KEE MACHADO MD in OV> 03/07/24 1455 DD/ 0950 TD/TT: Online Advertising Manager: ELIN MR cervical spine wo/w con Reviewed date:04/09/2024 08:53:12 AM Interpretation: Performing Lab: Notes/Report: [address] [address] Magnetic Resonance Report Signed Patient: Salome Spence MR#: [id number] 63 : 1970 Acct:[id number] Age/Sex: 53 / F ADM Date: 02/17/24 Loc: HO.MRI Attending Dr: Renee Clark MD Ordering Physician: Renee Clark MD Date of Service: 02/17/24 Procedure(s): MR cervical spine wo/w con Accession Number(s): [id number] cc: Jayden Henriquez MD; Renee Clark MD EXAMINATION: MR CERVICAL SPINE WITHOUT AND WITH CONTRAST CLINICAL INFORMATION: Relapsing/remitting MS COMPARISON: MRI cervical spine 08/11/2017 TECHNIQUE: MRI of the cervical spine was obtained using routine sequences without and with contrast. A total of 6.5 mL Gadavist was administered intravenously. FINDINGS: Grossly stable pattern of short segment intramedullary T2 hyperintense lesions throughout the cervical and imaged thoracic cord without definite new lesions identified within limitations of motion artifact. No enhancement to suggest active demyelination. The craniocervical junction is intact. Sagittal alignment is maintained. Trace anterolisthesis at C3-C4. Vertebral body heights are normal without acute compression fracture. No suspicious enhancing osseous lesion. Multilevel disc desiccation with increased moderate C6-C7 and otherwise mild disc height loss. New enhancing type I Modic endplate changes at C6-C7 and eccentric to the right at C3-C4. Decreased previously seen presumably degenerative/inflammatory marrow edema associated with the right T1-T2 facet joint. There are multilevel degenerative changes with level by level detail as follows: C2-C3: Shallow central disc protrusion with redemonstrated advanced hypertrophic right and milder left facet arthrosis. No spinal canal stenosis. Stable mild right without significant left neural foraminal stenosis. C3-C4: Annular disc bulge with marked uncovertebral joint hypertrophy and severe hypertrophic bilateral facet arthrosis with new enhancing marrow signal abnormality of the right C3 and C4 articular pillars and associated enhancing periarticular synovitis, presumably degenerative/inflammatory. No spinal canal stenosis. Possibly increased moderate to severe right and similar moderate left neural foraminal stenosis. C4-C5: Disc osteophyte complex with right greater than left uncovertebral joint hypertrophy and severe hypertrophic bilateral facet arthrosis. No spinal canal stenosis. Stable moderate to severe bilateral neural foraminal stenosis. C5-C6: Disc osteophyte complex with bilateral uncovertebral joint hypertrophy and severe bilateral hypertrophic facet arthrosis. No spinal canal stenosis. Stable moderate left and increased moderate to severe right neural foraminal stenosis. C6-C7: Disc osteophyte complex with marked uncovertebral joint hypertrophy and severe hypertrophic right with milder left facet arthrosis. Stable mild spinal canal, severe left, and mild right neural foraminal stenosis. C7-T1: Severe hypertrophic right and moderate left facet arthrosis. No spinal canal stenosis. Stable mild right greater than left neural foraminal stenosis. No epidural fluid collection, mass, or hematoma. No significant abnormalities of the paraspinal musculature. The flow voids of the major cervical vessels are maintained. Intracranial findings discussed separately. Several thyroid nodules in the left lobe, largest measuring 1.9 cm, for which further evaluation with thyroid ultrasound is advised. MR/MR cervical spine wo/w con IMPRESSION: 1. Grossly stable pattern of demyelinating disease throughout the cervical and imaged thoracic cord without definite new lesions identified within limitations of motion artifact. No enhancement to suggest active demyelination. 2. Cervical spondylosis has slightly progressed since prior. Increased moderate C6-C7 disc height loss with new enhancing type I Modic endplate changes at this level and to a lesser extent on the right at C3-C4. Severe hypertrophic right C3-C4 facet arthropathy with new enhancing marrow edema and periarticular inflammatory change/synovitis, presumably degenerative/inflammatory. Possibly increased moderate to severe right-sided neural foraminal narrowing at C3-C4 and C5-C6. Stable mild C6-C7 spinal canal stenosis. Additional multilevel neural foraminal narrowing is unchanged. 3. Several thyroid nodules in the left lobe, largest measuring 1.9 cm, for which further evaluation with thyroid ultrasound is advised. Dictated By: Kelly Nash Signed By: <Electronically signed by Kelly Nash in OV> 03/08/24 0050 DD/ 0950 TD/TT: Online Advertising Manager: [place] [id number] Magnetic Resonance Report Signed Patient: Bebeto Spence MR#: [id number] 63 : 1970 Acct:[id number] Age/Sex: 53 / F ADM Date: 02/17/24 Loc: HO.MRI Attending Dr: Judy Clark MD Ordering Physician: Renee Clark MD Date of Service: 02/17/24 Procedure(s): MR cervical spine wo/w con Accession Number(s): [id number] cc: Jayden Henriquez MD; Renee Clark MD EXAMINATION: MR CERVICAL SPINE WITHOUT AND WITH CONTRAST CLINICAL INFORMATION: Relapsing/remitting MS COMPARISON: MRI cervical spine 08/11/2017 TECHNIQUE: MRI of the cervical spine was obtained using routine sequences without and with contrast. A total of 6.5 mL Gadavist was administered intravenously. FINDINGS: Grossly stable patte rn of short segment intramedullary T2 hyperintense lesions throughout t he cervical and imaged thoracic cord without definite new lesions identified within limitations of motion artifact. No enhancement to suggest active demyelination. The craniocervical junction is intact. Sagittal alignment is maintained. Trace anterolisthesis at C3-C4. Vertebral body heights are normal without acute compression fracture. No suspicious enhancing osseous lesion. Multilevel disc desiccation with increased moderate C6-C7 and otherwise mild disc height loss. New enhancing type I Modic endplate changes at C6-C7 and eccentric to the right at C3-C4. Decreased previously seen presumably degenerative/inflammato ry marrow edema associated wit h the right T1-T2 facet joint. There are multilevel degenerative changes with level by level detail as follows: C2-C3: Shallow centr al disc protrusion with redemonstrated advanced hypertrophic right a nd milder left facet arthrosis. No spinal canal stenosis. Stable mil d right without significant left neural foraminal stenosis. C3-C4: Annular disc bulge with marked uncovertebral joint hypertrophy and severe hypertrop hic bilateral facet arthrosis with new enhancing marrow signal abnormality of the right C3 and C4 articular pillars and associated enhancing periarticular synovitis, presumably degenerative/inflamm adam ry. No spinal canal stenosis. Possibly increased moderate to severe right and similar moderate left neural foraminal stenosis. C4-C5: Disc osteophy te complex with right greater than left uncovertebral joint hypertrophy and severe hypertrophic bilateral facet arthrosis. No spinal canal stenosis. Stable moderate to severe bilateral neural foraminal stenosis. C5-C6: Disc osteophy te complex with bilateral uncovertebral joint hypertrophy and delmar re bilateral hypertrophic facet arthrosis. No spinal canal stenosi s. Stable moderate left and increased moderate to severe right neural foraminal stenosis. C6-C7: Disc osteophy te complex with marked uncovertebral joint hypertrophy and delmar re hypertrophic right with milder left facet arthrosis. Stable mi ld spinal canal, severe left, and mild right neural foraminal stenosis. C7-T1: Severe hypertrophic right and moderate left facet arthrosis. No spinal canal stenosi s. Stable mild right greater than left neural foraminal stenosis. No epidural fluid collection, mass, or hematoma. No significant abnormalities of the paraspinal musculature. The flow voids of the major cervical vessels are maintained. Intracranial finding s discussed separately. Several thyroid nodules in the left lobe, large st measuring 1.9 cm, for which further evaluation with thyroid ultraso und is advised. MR/MR cervical spine wo/w con IMPRESSION: 1. Grossly stable pattern of demyelinating disease throughout the cervical and imaged thoracic cord without definite new lesions identified within limitations of motion artifact. No enhancement to suggest active demyelination. 2. Cervical spondylo sis has slightly progressed since prior. Increased moderate C6-C7 disc height loss with new enhancing type I Modic endplate changes at this level and to a lesser extent on the right at C3-C4. Severe hypertrophic right C3-C4 facet arthropathy with new enhancing marrow shmuel ma and periarticular inflammatory change/synovitis, presumably degenerative/inflammato ry. Possibly increased moderate to severe right-sided neural foraminal narrowing at C3-C4 and C5-C6. Stable mild C6-C7 spinal canal stenosis. Additional multilevel neural foraminal narrowing is unchanged. 3. Several thyroid nodules in the left lobe, largest measuring 1.9 cm, for which further evaluation with thyroid ultrasound is advised. Dictated By: Kelly Nash Signed By: <Electronically signed by Kelly Nash in OV> 03/08/24 0050 DD/ 0950 TD/TT: Online Advertising Manager: Reason For Referral Reason family history of co muriel cancer 6 month stomach bloating and pain Last colonoscopy with your office 06/20/2020 Diagnosis 1 Abdominal bloating ( R14.0) Diagnosis 2 Gastric pain (R10.9) Referral Organization Jayden Henriquez III, MD Referring Provider First Name Jayden Referring Provider Last Name Martinez Referring Provider Speciality Internal M edicine Referred Organization [facility] Referred Provider Derrick Vance er, Gastroenterology Referred Address [address] [place] [address],[place], [id number], Referred Provider Specialty Gastroentero logy General Notes Yamel Chaidez CMA 11/20 01:36:41 PM >ref/progress note faxed to Kaylynn Weaver Suzanne CMA 11/28/2024 09:59:20 AM >called Derrick Pascual spoke to Erika she stated she tried to call pt and sent pt a letter to call office for appt . I called patient now encouraged her to call Derrick pascual at [phone] option 2 and make an appt, Yamel Chaidez CMA 11/28/2024 03:03:29 PM >I called pt who stated she has tried to call and had to leave two message for a return call. I called Derrick Pascual asked for a soon appt but was told that she could only put patient in for next available appt which is 03/26/2025 at 12noon with Bianka Royal CNP Patsy will put patient on cancellation list to get her in sooner if they can . Pt called and mailed this information Referral Priority Routine Referral Appointment Date 03/26/2025 Medications Medication SIG (Take, Route, Frequency, Duration) Notes Start Date End Date Status Ibuprofen 400 MG TAKE 1 TABLET BY OSWALDO TH THREE TIMES DAILY WITH FOOD OR MILK FOR 14 DAYS NEEDED Active Cyclobenzaprine HCl 10 MG TAKE 1 TABLET BY MOUTH THREE TIMES DAILY FOR 10 DAYS NEEDED FOR MUSCLE SPASM Active Tysabri 300 MG/15ML 15 ml Intravenous Active Triamcinolone Acetonide 0.1 % 1 application Externally Twice a day 10/14/2022 Active Anastrozole 1 MG TAKE 1 TABLET BY OSWALDO TH EVERY DAY Active Citalopram Hydrobromide 40 MG TAKE 1 TABLET BY MOUTH EVERY DAY Active Gabapentin 300 MG TAKE 1 CAPSULE BY MO UTH THREE TIMES DAILY FOR 15 DAYS Active Acyclovir 400 MG TAKE 1 TABLET BY OSWALDO TH TWICE DAILY Active Ondansetron 8 MG DISSOLVE 1 TABLET ON THE TONGUE EVERY 8 HOURS FOR 10 DAYS for nausea Orally shaunna 8 hours Active Meclizine HCl 25 MG 1 tablet as needed Orally every 8 hrs prn vertigo 04/21/2023 Active Omeprazole 20 MG 1 capsule 1 hour bef ore meal Orally Twice a day Active dexAMETHasone 2 MG 1 tablet Orally ever y 12 hrs 09/01/2023 Active Nicotine Step 1 21 MG/24HR 1 patch to sk in Transdermal Once a day 08/03/2023 Active Immunizations Vaccine Route Administration Date Status Comme nts Influenza, quad IM Intramuscular 06/11/2021 Administered Pneumococcal Unknown 06/26/2017 Administered COVID PFIZER Unknown 12/16/2020 Administered COVID PFIZER Unknown 11/26/2020 Administered COVID PFIZER Unknown 08/07/2021 Administered Tdap Unknown 02/15/2019 Administered Influenza, quad Unknown 06/05/2020 Administered Social History Tobacco Use: Social History Observation Description Date Details (start date - stop date) Former Smoker NA - NA Sex Assigned At : Social History Observation Description Sex Assigned At Female Alcohol Screen Question Answer Notes Did you have a drink containing alcohol in the p ast year? No Points 0 Interpretation Negative Tobacco Control (Standard) Question Answer Notes Tobacco use: Former smoker Problems Problem Type SNOMED Code ICD Code Onset Dates Problem Status W/U Status Risk Notes Problem 5294268 Former smoker (Z87.891) Active confirmed We made a plan to continue abstinence in times of stress or illness. Problem Lymphocytosis (31383303) Lymphocytosis (D72.820) Active confirmed She has 5800, lymphocytes today. This will be observed and evaluated. If it does not resolve. Problem 14419938 Depression (F32.9) Active confirmed She is being treated for this problem and seems to have recovered completely. She is compliant with all of her medications. Problem 23928178 Multiple sclerosis (G35) Active confirmed She has had no exacerbation of multiple sclerosis and is asymptomatic at this time.Her next infusion was scheduled today. Problem 888748766 Episodic tension-type headache, not intractable (G44.219) Active confirmed She denies having any recent headaches lately. Problem COPD - Chronic obstructive pulmonary disease (28295610) COPD (chronic obstructive pulmonary disease) (J44.9) Active confirmed Problem 88697878 Cervical radiculopathy (M54.12) Active confirmed She is beginning to respond to treatment with decreasing pain and more mobility. Her treatment will continue for another week. No change in her regimen was needed. Problem 650434606 Insomnia (G47.00) Active confirmed I have recommended she use either an antihistamine or melatonin. She is no longer requiring prescription medication. Problem 10159097 Genital herpes (A60.00) Active confirmed This problem is stable and no change in her regimen is necessary. She has had no flareups lately. She reports episodes 3 times a year. Her valacyclovir a prescription is current. Problem 05082916 Hyperlipidemia, unspecified hyperlipidemia type (E78.5) Active confirmed Her total cholesterol and triglycerides are quite elevated. She did not wish to be treated for this. She has reformed her diet. A fasting lipid profile will be done prior to her next visit. We will use the [employer] cardiovascular risk estimate her to assess her lifetime. Cardiac wrist. Problem Clavicle pain (456812291) Clavicle pain (M89.8X1) Active confirmed This pain has resolved. Problem Cholelithiasis AND cholecystitis without obstruction (disorder) (86235372) Calculus of gallbladder with cholecystitis without biliary obstruction, unspecified cholecystitis acuity (K80.10) Active confirmed Problem [id number] Invasive lobular carcinoma of right breast in female (C50.911) Active confirmed She will continue on anastrozole. There was no sign of a new primary breast cancer or recurrence today. Vital Signs Heart Rate 90 /min 12/25/2024 Temperature 98.1 degrees Fahrenheit 12/25/2024 Blood pressure diastolic 80 mm Hg 12/25/2024 Height 66 in 12/25/2024 Blood pressure systolic 120 mm Hg 12/25/2024 Weight 147 lbs 12/25/2024 BMI 23.72 kg/m2 12/25/2024 Encounters Encounter Location Date Provider Diagnosis Jayden Henriquez III, MD [address] [place] [address] [place] [address] 03/06/2024 Jayden Martinez Multiple sclerosis G 35 ; Invasive lobular carcinoma of right breast in female C50.911 ; Cervical radiculopathy M54.12 ; Former smoker Z87.891 ; Hyperlipidemia, unspecified hyperlipidemia type E78.5 ; Depression F32.9 ; Insomnia G47.00 and Weight loss R63.4 Jayden Henriquez III, MD [address] [place] [address] [place] [address] 12/25/2024 Jayden Arizmendirne Multiple sclerosis G 35 ; Tachycardia R00.0 ; COPD (chronic obstructive pulmonary disease) J44.9 ; Hyperlipidemia, unspecified hyperlipidemia type E78.5 and Fatigue R53.83 Jayden Henriquez III, MD [address] [place] [address] [place] [address] 12/31/2023 Jayden Henriquez Multiple sclerosis G 35 ; Depression F32.9 ; Insomnia G47.00 ; Invasive lobular carcinoma of right breast in female C50.911 ; Former smoker Z87.891 and Clavicle pain M89.8X1 Jayden Henriquez III, MD [address] [place] [address] [place] [address] 01/10/2024 Jayden Henriquez Multiple sclerosis G 35 ; Depression F32.9 ; Insomnia G47.00 ; Episodic tension-type headache, not intractable G44.219 ; Invasive lobular carcinoma of right breast in female C50.911 and Former smoker Z87.891 Jayden Henriquez III, MD [address] [place] [address] [place] [address] 04/03/2024 Jayden Henriquez Multiple sclerosis G 35 ; Depression F32.9 ; Insomnia G47.00 ; Episodic tension-type headache, not intractable G44.219 ; Cervical radiculopathy M54.12 ; Former smoker Z87.891 and Invasive lobular carcinoma of right breast in female C50.911 Jayden Henriquez III, MD [address] [place] [address] [place] [address] 05/31/2024 Jayden Henriquez Multiple sclerosis G 35 ; Breast pain, right N64.4 ; Episodic tension-type headache, not intractable G44.219 ; Insomnia G47.00 ; Depression F32.9 ; Cervical radiculopathy M54.12 ; Tobacco dependence F17.200 and Invasive lobular carcinoma of right breast in female C50.911 Jayden Henriquez III, MD [address] [place] [address] [place] [address] 06/09/2024 Jayden Henriquez Multiple sclerosis G 35 ; Breast pain, right N64.4 ; Depression F32.9 ; Invasive lobular carcinoma of right breast in female C50.911 ; Cervical radiculopathy M54.12 and Tobacco dependence F17.200 Jayden Henriquez III, MD [address] [place] [address] [place] [address] 06/28/2024 Jayden Henriquez Multiple sclerosis G 35 ; Tobacco dependence F17.200 ; Depression F32.9 and Cervical radiculopathy M54.12 Jayden Henriquez III, MD [address] [place] [address] [place] [address] 09/05/2024 Jayden Martinez Depression F32.9 ; Invasive lobular carcinoma of right breast in female C50.911 ; Insomnia G47.00 ; Episodic tension-type headache, not intractable G44.219 ; Cervical radiculopathy M54.12 ; Former smoker Z87.891 and Multiple sclerosis G35 Jayden Henriquez III, MD [address] [place] [address] [place] [address] 10/04/2024 Jayden Henriquez Multiple sclerosis G 35 ; Tobacco dependence F17.200 ; Cervical radiculopathy M54.12 and Depression F32.9 Jayden Henriquez III, MD [address] [place] [address] [place] [address] 11/13/2024 Jayden Arizmendirne Multiple sclerosis G 35 ; Episodic tension-type headache, not intractable G44.219 ; Acute non-recurrent maxillary sinusitis J01.00 ; Depression F32.9 ; Insomnia G47.00 ; Invasive lobular carcinoma of right breast in female C50.911 ; Cervical radiculopathy M54.12 ; Hyperlipidemia, unspecified hyperlipidemia type E78.5 and Former smoker Z87.891 Jayden Henriquez III, MD [address] [place] [address] [place] [address] 11/15/2024 Jayden Martinez Multiple sclerosis G 35 ; Depression F32.9 ; Insomnia G47.00 ; Episodic tension-type headache, not intractable G44.219 ; Invasive lobular carcinoma of right breast in female C50.911 ; Cervical radiculopathy M54.12 ; Former smoker Z87.891 and Acute bronchitis, unspecified organism J20.9 Jayden Henriquez III, MD [address] [place] [address] [place] [address] 12/13/2024 Jayden Henriquez Multiple sclerosis G 35 ; Depression F32.9 ; Insomnia G47.00 ; Episodic tension-type headache, not intractable G44.219 ; Invasive lobular carcinoma of right breast in female C50.911 and Former smoker Z87.891 Jayden Henriquez III, MD [address] [place] [address] [place] [address] 03/07/2024 Jayden Henriquez III, MD [address] [place] [address] [place] [address] 03/13/2024 Jayden Henriquez III, MD [address] [place] [address] [place] [address] 05/08/2024 Jayden Henriquez III, MD [address] [place] [address] [place] [address] 05/08/2024 Jayden Henriquez III, MD [address] [place] [address] [place] [address] 08/28/2024 Jayden Henriquez Assessments Encounter Date Diagnosis (ICD Code) Assessment Notes Treat ment Notes Treatment Clinical Notes 03/06/2024 Multiple sclerosis (ICD-10 - G35) She will return for treatment on schedule. She will follow-up with a neurologist. And MRI of the brain and spinal cord were done at [facility] February 17, 2024. We reviewed the images. The reports are not yet available. She will continue on current therapy. 03/06/2024 Invasive lobular carcinoma of right breast in female (ICD-10 - C50.911) She will continue on anastrozole. There was no sign of a new primary breast cancer or recurrence today. 12/25/2024 Multiple sclerosis (ICD-10 - G35) She has had no exacerbation of multiple sclerosis and is asymptomatic at this time.Her next infusion was scheduled today. 12/31/2023 Depression (ICD-10 - F32.9) She is being treated for this problem and seems to have recovered completely. She is compliant with all of her medications. 12/31/2023 Multiple sclerosis (ICD-10 - G35) She will return for treatment on schedule. She will follow-up with a neurologist. 01/10/2024 Depression (ICD-10 - F32.9) She is being treated for this problem and seems to have recovered completely. She is compliant with all of her medications. 01/10/2024 Multiple sclerosis (ICD-10 - G35) She will return for treatment on schedule. She will follow-up with a neurologist. 04/03/2024 Depression (ICD-10 - F32.9) She is being treated for this problem and seems to have recovered completely. She is compliant with all of her medications. 04/03/2024 Multiple sclerosis (ICD-10 - G35) Her neurologist has continued to treatment. She was treated today without evidence. 05/31/2024 Multiple sclerosis (ICD-10 - G35) Her neurologist has continued to treatment. She was treated today without incident. 05/31/2024 Breast pain, right (ICD-10 - N64.4) At 11:00 in the upper outer quadrant of the right breast is a palpable area of indurated tenderness. A diagnostic Bilateral mammogram and ultrasound will be done tomorrow. 06/09/2024 Multiple sclerosis (ICD-10 - G35) She has had no exacerbation of multiple sclerosis and is asymptomatic at this time. 06/09/2024 Breast pain, right (ICD-10 - N64.4) Discomfort has almost completely resolved. The mammogram and ultrasound of the right breast showed no malignancy. 06/28/2024 Multiple sclerosis (ICD-10 - G35) She has had no exacerbation of multiple sclerosis and is asymptomatic at this time. 06/28/2024 Tobacco dependence (ICD-10 - F17.200) I have strongly recommended smoking cessation. We have discussed several strategies for accomplishing this. 09/05/2024 Depression (ICD-10 - F32.9) She is being treated for this problem and seems to have recovered completely. She is compliant with all of her medications. 09/05/2024 Invasive lobular carcinoma of right breast in female (ICD-10 - C50.911) She will continue on anastrozole. There was no sign of a new primary breast cancer or recurrence today. 10/04/2024 Multiple sclerosis (ICD-10 - G35) She has had no exacerbation of multiple sclerosis and is asymptomatic at this time. 10/04/2024 Tobacco dependence (ICD-10 - F17.200) I have strongly recommended smoking cessation. We have discussed several strategies for accomplishing this. 11/13/2024 Multiple sclerosis (ICD-10 - G35) She has had no exacerbation of multiple sclerosis and is asymptomatic at this time.Her next infusion was scheduled today. 11/13/2024 Episodic tension-type headache, not intractable (ICD-10 - G44.219) She denies having any recent headaches lately. 11/15/2024 Depression (ICD-10 - F32.9) She is being treated for this problem and seems to have recovered completely. She is compliant with all of her medications. 11/15/2024 Multiple sclerosis (ICD-10 - G35) She has had no exacerbation of multiple sclerosis and is asymptomatic at this time.Her next infusion was scheduled today. 12/13/2024 Depression (ICD-10 - F32.9) She is being treated for this problem and seems to have recovered completely. She is compliant with all of her medications. 12/13/2024 Multiple sclerosis (ICD-10 - G35) She has had no exacerbation of multiple sclerosis and is asymptomatic at this time.Her next infusion was scheduled today. 03/06/2024 Cervical radiculopathy (ICD-10 - M54.12) She is beginning to respond to treatment with decreasing pain and more mobility. Her treatment will continue for another week. No change in her regimen was needed. 12/25/2024 Tachycardia (ICD-10 - R00.0) 12/31/2023 Insomnia (ICD-10 - G47.00) I have recommended she use either an antihistamine or melatonin. She is no longer requiring prescription medication. 01/10/2024 Insomnia (ICD-10 - G47.00) I have recommended she use either an antihistamine or melatonin. She is no longer requiring prescription medication. 04/03/2024 Insomnia (ICD-10 - G47.00) I have recommended she use either an antihistamine or melatonin. She is no longer requiring prescription medication. 05/31/2024 Episodic tension-type headache, not intractable (ICD-10 - G44.219) She denies having any recent headaches lately. 06/09/2024 Depression (ICD-10 - F32.9) She is being treated for this problem and seems to have recovered completely. She is compliant with all of her medications. 06/28/2024 Depression (ICD-10 - F32.9) She is being treated for this problem and seems to have recovered completely. She is compliant with all of her medications. 09/05/2024 Insomnia (ICD-10 - G47.00) I have recommended she use either an antihistamine or melatonin. She is no longer requiring prescription medication. 10/04/2024 Cervical radiculopathy (ICD-10 - M54.12) She is beginning to respond to treatment with decreasing pain and more mobility. Her treatment will continue for another week. No change in her regimen was needed. 11/13/2024 Acute non-recurrent maxillary sinusitis (ICD-10 - J01.00) She has atypical pain in the right maxillary sinus after viral infection. She was given a course of Augmentin. 11/15/2024 Insomnia (ICD-10 - G47.00) I have recommended she use either an antihistamine or melatonin. She is no longer requiring prescription medication. 12/13/2024 Insomnia (ICD-10 - G47.00) I have recommended she use either an antihistamine or melatonin. She is no longer requiring prescription medication. 03/06/2024 Former smoker (ICD-10 - Z87.891) We made a plan to continue abstinence in times of stress or illness. 12/25/2024 COPD (chronic obstructive pulmonary disease) (ICD-10 - J44.9) 12/31/2023 Invasive lobular carcinoma of right breast in female (ICD-10 - C50.911) She will continue on anastrozole. There was no sign of a new primary breast cancer or recurrence today. 01/10/2024 Episodic tension-type headache, not intractable (ICD-10 - G44.219) She denies having any recent headaches lately. 04/03/2024 Episodic tension-type headache, not intractable (ICD-10 - G44.219) She denies having any recent headaches lately. 05/31/2024 Insomnia (ICD-10 - G47.00) I have recommended she use either an antihistamine or melatonin. She is no longer requiring prescription medication. 06/09/2024 Invasive lobular carcinoma of right breast in female (ICD-10 - C50.911) She will continue on anastrozole. There was no sign of a new primary breast cancer or recurrence today. 06/28/2024 Cervical radiculopathy (ICD-10 - M54.12) She is beginning to respond to treatment with decreasing pain and more mobility. Her treatment will continue for another week. No change in her regimen was needed. 09/05/2024 Episodic tension-type headache, not intractable (ICD-10 - G44.219) She denies having any recent headaches lately. 10/04/2024 Depression (ICD-10 - F32.9) She is being treated for this problem and seems to have recovered completely. She is compliant with all of her medications. 11/13/2024 Depression (ICD-10 - F32.9) She is being treated for this problem and seems to have recovered completely. She is compliant with all of her medications. 11/15/2024 Episodic tension-type headache, not intractable (ICD-10 - G44.219) She denies having any recent headaches lately. 12/13/2024 Episodic tension-type headache, not intractable (ICD-10 - G44.219) She denies having any recent headaches lately. 03/06/2024 Hyperlipidemia, unspecified hyperlipidemia type (ICD-10 - E78.5) Her total cholesterol and triglycerides are quite elevated. She did not wish to be treated for this. She has reformed her diet. A fasting lipid profile will be done prior to her next visit. We will use the [employer] cardiovascular risk estimate her to assess her lifetime. Cardiac wrist. 12/25/2024 Hyperlipidemia, unspecified hyperlipidemia type (ICD-10 - E78.5) 12/31/2023 Former smoker (ICD-10 - Z87.891) We made a plan to continue abstinence in times of stress or illness. 01/10/2024 Invasive lobular carcinoma of right breast in female (ICD-10 - C50.911) She will continue on anastrozole. There was no sign of a new primary breast cancer or recurrence today. 04/03/2024 Cervical radiculopathy (ICD-10 - M54.12) She is beginning to respond to treatment with decreasing pain and more mobility. Her treatment will continue for another week. No change in her regimen was needed. 05/31/2024 Depression (ICD-10 - F32.9) She is being treated for this problem and seems to have recovered completely. She is compliant with all of her medications. 06/09/2024 Cervical radiculopathy (ICD-10 - M54.12) She is beginning to respond to treatment with decreasing pain and more mobility. Her treatment will continue for another week. No change in her regimen was needed. 09/05/2024 Cervical radiculopathy (ICD-10 - M54.12) She is beginning to respond to treatment with decreasing pain and more mobility. Her treatment will continue for another week. No change in her regimen was needed. 11/13/2024 Insomnia (ICD-10 - G47.00) I have recommended she use either an antihistamine or melatonin. She is no longer requiring prescription medication. 11/15/2024 Invasive lobular carcinoma of right breast in female (ICD-10 - C50.911) She will continue on anastrozole. There was no sign of a new primary breast cancer or recurrence today. 12/13/2024 Invasive lobular carcinoma of right breast in female (ICD-10 - C50.911) She will continue on anastrozole. There was no sign of a new primary breast cancer or recurrence today. 03/06/2024 Depression (ICD-10 - F32.9) She is being treated for this problem and seems to have recovered completely. She is compliant with all of her medications. 12/25/2024 Fatigue (ICD-10 - R53.83) 12/31/2023 Clavicle pain (ICD-10 - M89.8X1) This pain has resolved. 01/10/2024 Former smoker (ICD-10 - Z87.891) We made a plan to continue abstinence in times of stress or illness. 04/03/2024 Former smoker (ICD-10 - Z87.891) We made a plan to continue abstinence in times of stress or illness. 05/31/2024 Cervical radiculopathy (ICD-10 - M54.12) She is beginning to respond to treatment with decreasing pain and more mobility. Her treatment will continue for another week. No change in her regimen was needed. 06/09/2024 Tobacco dependence (ICD-10 - F17.200) I have strongly recommended smoking cessation. We have discussed several strategies for accomplishing this. 09/05/2024 Former smoker (ICD-10 - Z87.891) We made a plan to continue abstinence in times of stress or illness. 11/13/2024 Invasive lobular carcinoma of right breast in female (ICD-10 - C50.911) She will continue on anastrozole. There was no sign of a new primary breast cancer or recurrence today. 11/15/2024 Cervical radiculopathy (ICD-10 - M54.12) She is beginning to respond to treatment with decreasing pain and more mobility. Her treatment will continue for another week. No change in her regimen was needed. 12/13/2024 Former smoker (ICD-10 - Z87.891) We made a plan to continue abstinence in times of stress or illness. 03/06/2024 Insomnia (ICD-10 - G47.00) I have recommended she use either an antihistamine or melatonin. She is no longer requiring prescription medication. 04/03/2024 Invasive lobular carcinoma of right breast in female (ICD-10 - C50.911) She will continue on anastrozole. There was no sign of a new primary breast cancer or recurrence today. 05/31/2024 Tobacco dependence (ICD-10 - F17.200) I have strongly recommended smoking cessation. We have discussed several strategies for accomplishing this. 09/05/2024 Multiple sclerosis (ICD-10 - G35) She has had no exacerbation of multiple sclerosis and is asymptomatic at this time. 11/13/2024 Cervical radiculopathy (ICD-10 - M54.12) She is beginning to respond to treatment with decreasing pain and more mobility. Her treatment will continue for another week. No change in her regimen was needed. 11/15/2024 Former smoker (ICD-10 - Z87.891) We made a plan to continue abstinence in times of stress or illness. 03/06/2024 Weight loss (ICD-10 - R63.4) She has lost five pounds and has been skipping meals. She was counselled and will be followed closely. 05/31/2024 Invasive lobular carcinoma of right breast in female (ICD-10 - C50.911) She will continue on anastrozole. There was no sign of a new primary breast cancer or recurrence today. 11/13/2024 Hyperlipidemia, unspecified hyperlipidemia type (ICD-10 - E78.5) Her total cholesterol and triglycerides are quite elevated. She did not wish to be treated for this. She has reformed her diet. A fasting lipid profile will be done prior to her next visit. We will use the [employer] cardiovascular risk estimate her to assess her lifetime. Cardiac wrist. 11/15/2024 Acute bronchitis, unspecified organism (ICD-10 - J20.9) Is beginning to recover but is still short of breath with exertion. Her oxygen saturation levels were within normal limits as was her blood pressure. He will keep in touch by telephone and let me know if her respiratory status deteriorates. 11/13/2024 Former smoker (ICD-10 - Z87.891) We made a plan to continue abstinence in times of stress or illness. Plan Of Treatment Pending Test Test Name Order Date PROFILE, FASTING (COMPREHENSIVE METABOLI C) 05/13/2022 PROFILE, FASTING (COMPREHENSIVE METABOLI C) 12/25/2024 PROFILE, FASTING (COMPREHENSIVE METABOLI C) 12/23/2023 PROFILE, FASTING (COMPREHENSIVE METABOLI C) 08/06/2021 PROFILE, FASTING (COMPREHENSIVE METABOLI C) 12/01/2017 PROFILE, RANDOM (COMPREHENSIVE METABOLIC ) 03/13/2019 PROFILE, RANDOM (COMPREHENSIVE METABOLIC ) 09/02/2022 LIPID PANEL 08/06/2021 LIPID PANEL 12/01/2017 LIPID PANEL 09/02/2022 FREE T4 (FT4) 12/01/2017 TSH (THYROID STIMULATING HORMONE) 2017 TSH (THYROID STIMULATING HORMONE) 2024 CBC w DIFF 09/02/2022 CBC w DIFF 12/01/2017 CBC w DIFF 05/13/2022 CBC w DIFF 12/25/2024 CBC w DIFF 08/06/2021 CBC w DIFF 03/13/2019 SED RATE (ESR) 03/13/2019 SED RATE (ESR) 12/01/2017 SED RATE (ESR) 12/23/2023 CLOSTRIDIUM DIFF TOXIN A&B (C DIFF) 11/21 LEUKEMIA & LYMPHOMA EVAL (LLE) BLOOD 04/2022 CARBOHYDRATE ANTIGEN 19-9 (CA 19-9) 09/2023 XR CHEST 2 VIEW PA & LAT 12/25/2024 HIDA SCAN GB WITH CCK 03/18/2020 US BREAST RIGHT 05/31/2024 CBC WITH AUTO DIFF 12/23/2023 Lipid Panel 05/13/2022 Lipid Panel 12/25/2024 Free T4 (Free Thyroxine) 12/25/2024 Stool Culture 12/09/2022 ECG 12 lead EKG 12/25/2024 MM tomosynthesis diagnostic BI 4 Next Appt Details Provider Name:Jayden Henriquez, 12/29/2024 09:15:00 AM, [address] [place] [address] [address], [place], [address], Provider Name:Jayden Henriquez, 01/10/2025 09:00:00 AM, [address] [place] [address] [address], [place], [address], Insurance Providers Payer Name Payer Address Payer Phone Subscriber Number Group Number Insured Name Patient Relationship to Insured Coverage Start Date Coverage End Date MEDICARE NGS [address] [place] [address] [phone] [id number] Salome Spence Self - patient is the insured MEDICA[place] [address] [place] [id number] Salome Spence Self - patient is the insured Medical (General) History Medical History History ICD Code multiple sclerosis age 33 depression/anxiety genital herpes age 22 onset of menopause 2014 after hysterecto my tobacco dependence degenerative disc disease cervical spine 2019 [id number] stage II invasi ve breast cancer left, estrogen and progesterone receptor positive, HER-2 negative, node-negative menarche age 11 Breast cancer - occurred approximately 4 -5 years ago Multiple sclerosis - ongoing Surgical History Surgery Date(Month/Year) No history lumpectomy and sentinel node biopsy right breast, invasive lobular carcinoma 2019 left patellar surgery age 9 partial thyroidectomy for benigh nodule 1993 laparotomy, [facility], Dr. Mercedes for blockage 20 14 [id number] Hysterectomy without oophorectomy 1991 Hospitalization History Reason Date(Month/Year) No history
[2024-12-25 11:18] LABS: SLIDE REVIEW VERIFIED
[2024-12-25 12:34] LABS: Alanine Aminotransferase 24 U/L (0-31); Albumin Level 4.4 g/dL (3.5-5.0); Alkaline Phosphatase 63 U/L (39-117); Aspartate Amino Transferase 23 U/L (5-31); Bilirubin Total 0.2 mg/dL (0.0-1.0); Blood Urea Nitrogen 22 mg/dL (9-16); Calcium 8.9 mg/dL (8.4-10.2); Carbon Dioxide 27 mmol/L (22-29); Chloride 107 mmol/L (96-108); Cholesterol 279 mg/dL (<200); Estimated Glomerular Filt Rate > 60; Glucose Fasting 101 mg/dL (60-99); Potassium 3.8 mmol/L (3.3-5.1); Sodium 139 mmol/L (135-145); Total Protein 7.2 g/dL (6.5-8.0); Triglycerides 194 mg/dL (<150)
[2024-12-25 12:50] LABS: Anion Gap 12 (12-20); HDL Cholesterol 57 mg/dL (>40); LDL Cholesterol Calculated 184 mg/dL (<100)
[2024-12-25 12:59] LABS: Free T4 (Free Thyroxine) 0.82 ng/dL (0.71-1.85); Thyroid Stimulating Hormone 0.34 uIU/mL (0.32-4.0)
== END 2024-12-25 09:53 | disposition home or self-care (01) ==
LOC: HO.XRAY 09:52
PROVIDERS: PCP Internal Medicine Medical Oncology; Visit Provider Internal Medicine Medical Oncology
DX: R00.0 Tachycardia, unspecified (principal); J44.9 Chronic obstructive pulmonary disease, unspecified; G35 Multiple sclerosis; E78.5 Hyperlipidemia, unspecified; R53.83 Other fatigue
CPT/HCPCS: 36415; 71046; 80053; 80061; 84439; 84443; 85025; 93005

== ENCOUNTER → 2024-12-25 09:52 | Outpatient (BNV) | payer MEDICARE, MEDICAID, SELFPAY | PROVIDERS: PCP Internal Medicine Medical Oncology; Visit Provider Internal Medicine | DX: J44.9 Chronic obstructive pulmonary disease, unspecified (principal) | CPT/HCPCS: 93010 ==

== ENCOUNTER → 2024-12-25 10:14 | Outpatient (BNV) | payer MEDICARE, MEDICAID, SELFPAY | PROVIDERS: PCP Internal Medicine Medical Oncology; Visit Provider Student in an Organized Health Care Education/Training Program | DX: J44.9 Chronic obstructive pulmonary disease, unspecified (principal) | CPT/HCPCS: 71046 ==

== ENCOUNTER → 2025-02-18 14:39 | Outpatient (BNV) | payer MEDICARE, MEDICAID, SELFPAY | PROVIDERS: PCP Internal Medicine Medical Oncology; Visit Provider Radiology Diagnostic Radiology | DX: M47.23 Other spondylosis with radiculopathy, cervicothoracic region (principal); G35 Multiple sclerosis; M48.02 Spinal stenosis, cervical region | CPT/HCPCS: 70553; 72156 ==

== ENCOUNTER 2025-02-18 15:07 | Outpatient (REF) | payer MEDICARE, MEDICAID, SELFPAY ==
--- NOTE | ~2025-02-18 | MR_ITS ---
EXAMINATION: MR CERVICAL SPINE WITHOUT AND WITH CONTRAST CLINICAL INFORMATION: MS COMPARISON: February 17, 2024. TECHNIQUE: MRI of the cervical spine was obtained using routine sequences with and without contrast. Intravenous contrast: Gadolinium based contrast 6.5 mL. No reported immediate complications. FINDINGS: Limited by patient's motion artifact. Patchy hyperintense STIR cor signal abnormality without enhancement throughout the cervical spine and the upper thoracic spine more pronounced at C6-7 and C3-4 levels. There is no cord expansion. Craniocervical junction is intact. No bone marrow STIR signal abnormality. Bone marrow inhomogeneity. Multilevel marginal osteophyte formation and disc desiccation more pronounced at C6-7, C5-6 and to a lesser extent C3-4 C4-5 and C7-T1 levels. Grade 1 anterolisthesis C3-4, C5-6 levels. Grade 1 retrolisthesis C6-7. Reverse curvature apex at C5-6. Bone marrow inhomogeneity. C2-3: No cord compression. No neuroforamina stenosis. No herniated disc. C3-4: Broad-based disc osteophyte compresses formation abutting the cord without flattening. Bilateral neuroforamina stenosis on a degenerative basis. C4-5: Broad-based disc osteophyte compresses formation. No cord compression. No neuroforamina stenosis on a degenerative basis. C5-6: Broad-based disc osteophyte consummation resulting in ventral deformity of the thecal sac. No cord compression. Bilateral neuroforamina stenosis right greater than the left side. C6-7: Broad-based disc osteophyte consummation resulting in ventral deformity of the thecal sac. Bilateral neuroforamina stenosis more pronounced on the left side. C7-T1: No disc herniation. No gross neuroforamina stenosis. No prevertebral compartment hematoma, mass or fluid collections. Flow-void signal within the main vessels is normal. Right vertebral artery is dominant. Nonspecific prominent cervical lymph nodes, bilaterally. MR/MR cervical spine wo/w con IMPRESSION: Nonenhancing demyelinating plaques throughout the cervical and upper thoracic spinal cord more conspicuous at C6-7 and C3-4 levels. Multilevel cervical spondylosis C3 C7 resulting in central spinal canal stenosis and bilateral neuroforamina stenosis more pronounced at C3-4, C4-5, C5-6 and C6-7 levels. Electronically signed by: Hunter Burrows MD 02/19/2025 10:14 AM EDT RP
--- NOTE | ~2025-02-18 | MR_ITS ---
EXAMINATION: MR BRAIN WITHOUT AND WITH CONTRAST CLINICAL INFORMATION: MS COMPARISON: February 17, 2024. TECHNIQUE: Multiplanar, multisequence MRI of the brain was obtained before and after the intravenous administration of 6.5 mL gadolinium based contrast without reported immediate complications.. FINDINGS: No restricted diffusion. No abnormal enhancement in the intra-axial or the extra-axial compartment of the cranium. Bilateral, multifocal patchy and perpendicularly oriented to the corpus callosum deep periventricular white matter hyperintense T2 FLAIR signal involving centrum semiovale and kidd radiata. Patchy hyperintense T2 FLAIR signal within the thanh. No acute intracranial hemorrhage, mass effect, midline shift, hydrocephalus or herniation. Cheung-white matter differentiation is normal. Flow-void signal within the main cerebral vessels is normal. Sellar/suprasellar region demonstrated no signal abnormality or enhancing lesion. There is thinning of the corpus callosum with hyperintense T2 FLAIR signal affecting mostly the body. MR/MR head/brain wo/w con IMPRESSION: Demyelinating plaques involving mostly supratentorial compartment and corpus callosum with worsening/atrophy of the posterior body of the corpus callosum since prior exam. Electronically signed by: Hunter Burrows MD 02/19/2025 10:04 AM EDT
[2025-02-18] MEDS: gadobutroL 7.5 ML VIAL IVPUSH (16:27)
== END 2025-02-18 15:08 | disposition home or self-care (01) ==
LOC: HO.MRI 15:07
PROVIDERS: PCP Internal Medicine Medical Oncology; Visit Provider Registered Nurse
DX: G35 Multiple sclerosis (principal)
CPT/HCPCS: 70553; 72156; A9585

== ENCOUNTER 2025-03-26 12:05 | Outpatient (AMB) | payer MEDICARE, MEDICAID, SELFPAY ==
--- OUTSIDE RECORDS SUMMARY | 2025-03-05 06:11 | XMS_ITS ---
Author Organization Jayden Henriquez III, MD Address [address] [place] [address] Care Team Providers Care Reservoir Engineer Name Role Phone Jayden Henriquez Primary Care Provider Amber MORFIN, [facility] Unavailabl e Medications Medication SIG (Take, Route, Fr equency, Duration) Notes Start Date End Date Status Amoxicillin 250 MG [address] ee times a day for 7 days 03/05/2025 03/12/2025 Active Social History Sex Assigned At : Social History Observation Description Sex Assigned At Female Encounters Encounter Location Date Provider Diagnosis Jayden Henriquez III, MD [address] [place] [address] [place] [address] 03/05/2025 Jayden Henriquez Plan Of Treatment Medication Medication Name Sig Start Date Stop Date Notes Amoxicillin 250 MG [address] ee times a day for 7 days 03/05/2025 03/12/2025 Next Appt Details Provider Name:Jayden Henriquez, 04/11/2025 01:00:00 PM, [address] [place] [address] [place], [address], Progress Notes * Nirmal SPENCE: 8 (54 yo F)Acc No.[id number]:03/05/2025 Patient: Salome RHODES :1970 A ge:54 Y S ex:Female Address:[address] [place] [address], [address], [place] [address] * Refills Start Amoxicillin Capsule, 250 MG, Orally, 21 Capsule, 1 capsule, Three times a day, 7 days, Refills=0 * true * Date: Generated for Ashleigh yung/Dennis/Maryitting on: 0 03/26/2025 12:46 PM EDT
--- NOTE | 2025-03-26 12:06 | A.OFFVIS_ITS ---
Vital Signs 03/26/25 12:11 Height 5 ft 6 in Weight 150 lb BMI 24.2 BP 134/84 Blood Pressure Location Rt brachial Position Sitting Pulse 92 Pulse Source Pulse Oximeter Pulse Oximetry (%) 94 Oxygen Delivery Method Room Air Intake Visit Reasons: colo screening Intake Note: Est pt for colo recall. Constipation mgmt. JEMAL 2020. Last colo 2019 w/ Dr. Thompson. CC: C.O. chronic nausea. Pt denies any additional sx or concerns at this time. Pt taking PRN zofran which helps. 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 Video colonoscope was introduced without difficulty. It was navigated into the rectosigmoid and sigmoid. Prep was good to excellent. The scope was slowly advanced through the colon to the level of the cecum. Appendiceal orifice was seen. Ileocecal valve was well seen and clustering of polyps was found in the ascending colon as noted in the specimen removal region. All lesions were easily visible with NBI imaging. However, despite attempts at submucosal elevation, this was not able to be achieved with ORISE agent on this patient. The original plan was to remove the tissue by snare cautery; however, the lesions were too flat to snug up snare. The polypoid tissue was removed excisionally with the cold bx forcep. Scope was withdrawn. There was a 1 to 2 mm adenomatous polyp left behind in the sigmoid area due to the fact that the areas on the right colon had been so complex. Procedure was already over an hour. Procedure start: 9:49 a.m., Conclusion 11:05 a.m. PLAN: Review of histology showed the complex polyps to be sessile serrated adenomas. There is a greater premalignant potential with this type of polyp. Repeat colonoscopy will be entertained in 6 to 12 months due to complexity of this case. Intent to review the 2 areas of excision. Remove the adenomatous polyp on the Left side. LAST VISIT 02/17/2021 Nausea Plan Patient reports to be feeling nauseous. Patient does also report that she is feeling constipated, that could be the cause of her feeling nauseous. Patient can continue Zofran. Hopefully when she starts moving her bowels better her nausea will go away. Patient denies dyspepsia, dysphagia or odynophagia. Constipation Plan Patient reports that she feels constipated most of the time. Occasionally she will have a softer bowel movement. Patient does not eat much fiber. She does not monitor the food she eats. I will put her on fiber therapy twice a day and stool softener. I will see her in 3 weeks to re-evaluate before she will go for colonoscopy. Patient denies any melena, hematochezia, unintentional weight loss or ribbon like stools. Patient is agreeable to plan of care and verbalizes understanding of instructions. She was given the opportunity to ask questions and all questions answered. ? Thank you for allowing me to participate in her care Medications New: psyllium husk (Metamucil) 0.52 grams PO BID 60 caps 4RF docusate sodium 100 mg PO BEDTIME 30 caps 3RF TODAY'S VISIT: Patient is here today to discuss going for colonoscopy. Patient was supposed to follow-up back in 2020 after last seen in February 172020. Patient reports that she has been going under lot of stress. Was diagnosed with breast cancer. Recently her mom was just diagnosed with colorectal cancer. Patient denies any melena, hematochezia, unintentional weight loss or ribbon like stools. Denies any dyspepsia, dysphagia or odynophagia. Patient reports that she has been taking omeprazole for quite some time and is using Zofran as needed. Patient reports waking up with nausea in the morning. Patient denies any issues with anesthesia in the past. No history of sleep apnea. Not on any anticoagulation medication. [facility] Medical History (Updated 03/29/25 @ 20:33 by Bianka Royal [facility]) GERD (gastroesophageal reflux disease) Breast cancer Degenerative disc disease, cervical Genital herpes Anxiety Depression Multiple sclerosis Surgical History Hx of colonoscopy Status post right breast lumpectomy Hx of exploratory laparotomy History of left knee surgery H/O partial thyroidectomy H/O: hysterectomy Social History Cigarette Packs Per Day: 0.5 Cigarettes Per Day: 10.0 Years Smoked: 30 Second Hand Smoke Exposure: No Substance Use Type: Marijuana Review of Systems Const Denies weight gain and Denies weight loss ENT Reports no additional complaints, Denies dysphagia and Denies odynophagia Card Reports no additional complaints Resp Reports no additional complaints GI Denies abdominal pain, Denies belching, Denies melena, Denies bloating, Denies change in bowel habits, Denies dysphagia, Denies excessive flatus, Denies d yspepsia, Denies heartburn, Denies diarrhea, Denies loose stools, Denies nausea, Denies odynophagia and Denies vomiting Musc Reports no additional complaints Neuro Reports no additional complaints Psych Reports no additional complaints Endo Reports no additional complaints Physical Exam Vital Signs: Last Vital Signs Pulse 92 03/26/25 12:11 BP 134/84 03/26/25 12:11 Pulse Ox 94 03/26/25 12:11 Oxygen Delivery Method Room Air 03/26/25 12:11 BMI result Body Mass Index 24.2 Const General: healthy appearing, no acute distress and well developed Nutritional Appearance: well nourished Orientation/consciousness: patient oriented x3 Resp Effort & Inspection: normal respiratory effort, able to speak in complete sentences, no tracheal deviation and symmetric chest movement Auscultation: clear to auscultation bilaterally Cardio Rate: regular rate GI Inspection: Yes normal to inspection and No distended Palpation (GI): Soft to palpation, not firm, nontender and No hepatosplenomegaly present Auscultation: normal bowel sounds General: Yes no CVA tenderness Back/Spine/Pelvis Back: no CVA tenderness Skin General skin exam: elasticity normal, turgor normal and dry skin Neuro General: patient oriented x3 Psych Appearance: grossly normal Mental Status: mental status grossly normal Assessment & Plan Assessment & Plan (1) GERD (gastroesophageal reflux disease): Code(s): K21.9 - Gastro-esophageal reflux disease without esophagitis Category: Medical Qualifiers: Esophagitis presence: esophagitis presence not specified Qualified Code(s): K21.9 - Gastro-esophageal reflux disease without esophagitis (2) Nausea: Code(s): R11.0 - Nausea (3) Constipation: Code(s): K59.00 - Constipation, unspecified Qualifiers: Constipation type: slow transit constipation Qualified Code(s): K59.01 - Slow transit constipation (4) Screen for colon cancer: Code(s): Z12.11 - Encounter for screening for malignant neoplasm of colon Plan Message sent to surgical schedulers to call patient and book procedure. Recently patient's mom was diagnosed with colorectal cancer. Patient reports nausea, currently on omeprazole. Patient will be sent for upper endoscopy as well to rule out gastritis, esophagitis, duodenitis, Griffin's, H pylori. With expect before during and after procedure discussed with patient. Stressed the importance of good bowel prep and clear liquid diet day before procedure. Patient will follow-up with us after the procedure, sooner on as needed basis. She is agreeable to this plan and verbalizes understanding of instructions. She was given the opportunity to ask questions and all questions answered. Thank you for allowing me to participate in her care Medications: New bisacodyl (Dulcolax (bisacodyl)) take 4 tabs at noon the day before your colonoscopy 20 mg (4 x 5 mg) PO ONCE 4 tabs 0RF constipation 1 day Z12.11 - Encounter for screening for malignant neoplasm of colon polyethylene glycol 3350 (Miralax) As directed by gastroenterology department at [facility] 238 grams PO ONCE 238 grams 0RF Z12.11 - Encounter for screening for malignant neoplasm of colon Coding Level of Care Code New Pt Level 4 (86648) Diagnoses Gastroesophageal reflux disease, unspecified whether esophagitis present K21.9 Esophagitis presence: esophagitis presence not specified Nausea R11.0 Slow transit constipation K59.01 Constipation type: slow transit constipation Screen for colon cancer Z12.11 Time Spent (min) 45 Comment 35 minutes spent with patient and additional 10 minutes spent reviewing her records
[2025-03-26 12:11] VITALS: BP 134/84; PULSE 92; O2SAT 94; BMI 24.2
== END 2025-03-26 13:27 | disposition home or self-care (01) ==
LOC: HO.HGI 12:06
PROVIDERS: PCP Internal Medicine Medical Oncology; Visit Provider Nurse Practitioner Family
DX: K59.01 Slow transit constipation (principal); Z01.818 Encounter for other preprocedural examination; Z12.11 Encounter for screening for malignant neoplasm of colon; K21.9 Gastro-esophageal reflux disease without esophagitis; R11.0 Nausea
CPT/HCPCS: 99204

== ENCOUNTER → 2025-03-26 12:05 | Outpatient (BNVA) | payer MEDICARE, MEDICAID, SELFPAY | PROVIDERS: PCP Internal Medicine Medical Oncology; Visit Provider Nurse Practitioner Family | DX: Z12.11 Encounter for screening for malignant neoplasm of colon (principal); K21.9 Gastro-esophageal reflux disease without esophagitis; K59.01 Slow transit constipation; R11.0 Nausea | CPT/HCPCS: 99202 ==

== ENCOUNTER → 2025-03-27 09:48 | Outpatient (REF) | payer MEDICARE, MEDICAID, SELFPAY ==
--- OUTSIDE RECORDS SUMMARY | 2025-03-05 06:11 | XMS_ITS ---
Author Organization Jayden Henriquez III, MD Address [address] [place] [address] Care Team Providers Care Wildlife Conservation Officer Name Role Phone Jayden Henriquez Primary Care Provider Amber MORFIN, [facility] Unavailabl e Medications Medication SIG (Take, Route, Fr equency, Duration) Notes Start Date End Date Status Amoxicillin 250 MG 1 capsule [address] Thr ee times a day for 7 days 03/05/2025 03/12/2025 Active Social History Sex Assigned At : Social History Observation Description Sex Assigned At Female Encounters Encounter Location Date Provider Diagnosis Jayden Henriquez III, MD [address] [place] [address] [place] [address] 03/05/2025 Jayden Henriquez Plan Of Treatment Medication Medication Name Sig Start Date Stop Date Notes Amoxicillin 250 MG [address] ee times a day for 7 days 03/05/2025 03/12/2025 Next Appt Details Provider Name:Jayden Henriquez, 04/11/2025 01:00:00 PM, [address] [place] [address] [place] [address], Progress Notes * Nirmal SPENCE: 8 (54 yo F)Acc No.[id number]:03/05/2025 Patient: Salome RHODES :1970 A ge:54 Y S ex:Female Address:[address] [place] [address], [address], [place] [address] * Refills Start Amoxicillin Capsule, 250 MG, Orally, 21 Capsule, 1 capsule, Three times a day, 7 days, Refills=0 * true * Date: Generated for Ashleigh yung/Dennis/Maryitting on: 0 03/27/2025 10:14 AM EDT
--- NOTE | 2025-03-27 09:51 | CA_ITS ---
Transthoracic Echocardiogram Patient (Last, First, Middle): Salome Spence, Gender: Female Date of : 1970 Age: 54 Procedure Date: 03/27/2025 Procedure Type: Transthoracic Echocardiogram Location: OP Height: 167.64 cm Weight: 68.04 kg BSA: 1.77 m2 Heart Rate: bpm BP: 134 / 84 mmHg Internet Cafe Manager: MARYANN Referring MD: Jayden Henriquez MD Symptoms: Z82.49 FAM HX ISCHEMIC HEART DISEASE AND CIRC DISEASES Study Quality: Adequate with contrast ECG Rhythm: Sinus Conclusions: - The left ventricular systolic function is mildly decreased. The calculated ejection fraction is 49% by biplane method. - No obvious valvular pathology seen on this study. Findings Procedure Information Contrast agent, definity, is being given per protocol without apparent complications. Left Ventricle Mildly increased left ventricular cavity size. There is normal left ventricular wall thickness. The left ventricular systolic function is mildly decreased. The calculated ejection fraction is 49% by biplane method. There is mild global hypokinesis. Diastolic function is normal for age. Right Ventricle Normal right ventricular cavity size and systolic function. Atria Both atria are normal in size. Aortic Valve There is a normal trileaflet aortic valve. There is no aortic valve stenosis. There is trace (trivial) aortic valve regurgitation. Mitral Valve The mitral valve appears normal. There is trace mitral valve regurgitation. There is no mitral valve stenosis. Pulmonic Valve The pulmonic valve is likely normal. Tricuspid Valve There is trace tricuspid valve regurgitation. Tricuspid regurgitation envelope is inadequate for calculation of right ventricular systolic pressure. There is no evidence of pulmonary hypertension. Great Vessels The asc aorta and aortic arch are normal in size. Venous The inferior vena cava is normal in size and collapses greater than 50% with inspiration. Pericardium/Pleural There is no evidence of pericardial effusion. Prior Study Comparison No prior study available for comparison. Recommendations, Care & Conclusions No obvious valvular pathology seen on this study. Measurements 2D Linear Measurements IVSd: 0.96 0.6-0.9/0.6-1.0 cm LVIDd: 5.65 3.9-5.3/4.2-5.9 cm LVIDd Index: 3.19 2.4-3.2/2.2-3.1 cm/m2 LVIDs: 4.52 2.0-3.6 cm LVPWd: 0.78 0.7-1.1 cm LA Diam: 3.20 2.7-3.8/3.0-4.0 cm LAIDs Index: 1.81 1.5-2.3 cm/m2 LV Mass: 232.15 67-162/88-224 g LV Mass Index: 131.16 43-95/49-115 g/m2 LVOT Diam: 2.40 3.0+(-)1.3 cm 2D Systolic Function EF 4C: 55.30 >55% EF 2C: 43.60 >55% EF BiP: 49.00 >55% Mitral Valve MV Pk E: 0.40 MV PK A: 0.67 MV Decel Time: 226.00 E/A: 0.60 E'Lateral: 5.98 E'Medial: 5.22 E/E' Med: 7.60 E/E' Lat: 6.70 PHT: 66.00 MVA PHT: 3.33 Decel [place]: 1.76 Aortic Valve AoV Pk Mo: 1.17 AoV Mn Mo: 0.88 AoV VTI: 0.22 AoV Pk Grad: 5.00 Aov Mn Grad: 3.00 RIGOBERTO Cont.VTI: 3.31 LVOT LVOT Pk Mo: 0.93 LVOT Mn Mo: 0.62 LVOT VTI: 0.16 LVOT Pk Grad: 3.00 LVOT Mn Grad: 2.00 LVOT Diam: 2.40 LVOT Area: 4.52 Diastolic Function MV Pk E: 0.40 MV Pk A: 0.67 E/A: 0.60 E'Medial: 5.22 E/E' Med: 7.60 E' Laterial: 5.98 E/E' Lat: 6.70 Right Ventricle TAPSE (mm): 20.00 Tricuspid Valve RA Press: 3.00 Great Vessels Aorta Sinus of Valsalva: 3.67 2.0-3.[address] [place]: 3.23 1.7-3.4 cm Ao Asc: 3.70 2.1-3.4 cm Ao Arch: 3.40 Updated in Other Vendor System with Status of Final Yossi Arora MD electronically signed on 03/28/2025 11:46:12 AM with status of Final
== END ==
LOC: HO.CARD 09:48
PROVIDERS: Visit Provider Internal Medicine Medical Oncology
DX: Z13.6 Encounter for screening for cardiovascular disorders (principal); Z82.49 Family history of ischemic heart disease and other diseases of the circulatory system
CPT/HCPCS: 93306; Q9957

== ENCOUNTER → 2025-03-27 09:51 | Outpatient (BNV) | payer MEDICARE, MEDICAID, SELFPAY | PROVIDERS: Visit Provider Internal Medicine | DX: I51.89 Other ill-defined heart diseases (principal) | CPT/HCPCS: 93306 ==

== ENCOUNTER 2025-04-18 08:50 | Day surgery (SDC) | payer MEDICARE, MEDICAID, SELFPAY ==
[2025-04-16 14:14] VITALS: BMI 24.2
--- NOTE | 2025-04-17 12:49 | HO.ANESPROP2 ---
Documented by User: Barbie Bonner NP 04/17/25 12:57 HPI - Anesthesia Eval Consult details Narrative: 54yo F for Upper Endoscopy and Colonoscopy IV rx for MS PMFSH Active Problems Active Problems: All Active Problems GERD (gastroesophageal reflux disease) (Acute) Past Medical History Medical History (Updated 03/29/25 @ 20:33 by Bianka Royal [facility]) GERD (gastroesophageal reflux disease) Breast cancer Degenerative disc disease, cervical Genital herpes Anxiety Depression Multiple sclerosis Surgical History Surgical History Hx of colonoscopy Status post right breast lumpectomy Hx of exploratory laparotomy History of left knee surgery H/O partial thyroidectomy H/O: hysterectomy History of Problems with Anesthesia: No Social History Social History Patient Tobacco Use Status: Current everyday Tobacco user Cigarette Packs Per Day: 0.5 Cigarettes Per Day: 10.0 Years Smoked: 30 Second Hand Smoke Exposure: No Use of substances other than those prescribed or required for medical reasons: Yes Substance Use Type: Marijuana Advance Directives: No Advance Directives Information Provided: Yes Meds Allergies Allergy/AdvReac Type Severity Reaction Status Date / Time codeine (CODEINE) Allergy Unknown UNK Verified 03/26/25 12:06 morphine (MORPHINE) Allergy Unknown HIVES Verified 03/26/25 12:06 Sulfa (Sulfonamide Allergy Unknown ITCH Verified 03/26/25 12:06 Antibiotics) (SULFA (SULFONAMIDE ANTIBIOTICS)) Home Medications ?Medication ?Instructions ?Recorded ?Confirmed ?Last Taken ?Type acyclovir 400 mg tablet 1 tab PO BID 06/14/20 06/14/20 Unknown History anastrozole 1 mg tablet 1 tab PO DAILY 06/14/20 06/14/20 Unknown History citalopram 40 mg tablet 1 tab PO DAILY 06/14/20 06/14/20 Unknown History natalizumab 300 mg/15 mL mg IV 06/14/20 06/14/20 Unknown History intravenous solution (Tysabri) omeprazole 20 mg capsule,delayed 1 cap PO BID 06/14/20 06/14/20 Unknown History release ondansetron 8 mg disintegrating 1 tab PO Q8H PRN Nausea 06/14/20 06/14/20 Unknown History tablet Exam Height,Weight and Vital Signs: Height 5 ft 6 in Weight 68.039 kg Pertinent Lab Results Pertinent Lab Results: Laboratory Tests 12/25/24 10:22 WBC 12.8 H Hgb 13.6 Hct 40.7 Plt Count 308 Sodium 139 Potassium 3.8 Chloride 107 Carbon Dioxide 27 BUN 22 H Creatinine 0.73 Assessment and Plan Assessment Anesthesia Assessment: Chart Reviewed Final Anesthetic Review History of Problems with Anesthesia: No Documented by User: Dave More MD 04/18/25 10:50 PMF Past Medical History Medical History (Updated 03/29/25 @ 20:33 by Bianka Royal [facility]) GERD (gastroesophageal reflux disease) Breast cancer Degenerative disc disease, cervical Genital herpes Anxiety Depression Multiple sclerosis Family History Family history of problems with anesthesia: No Surgical History Surgical History Hx of colonoscopy Status post right breast lumpectomy Hx of exploratory laparotomy History of left knee surgery H/O partial thyroidectomy H/O: hysterectomy Social History Social History Patient Tobacco Use Status: Current everyday Tobacco user Cigarette Packs Per Day: 0.5 Cigarettes Per Day: 10.0 Years Smoked: 30 Second Hand Smoke Exposure: No Use of substances other than those prescribed or required for medical reasons: Yes Substance Use Type: Marijuana Advance Directives: No Advance Directives Information Provided: Yes Meds Allergies Allergy/AdvReac Type Severity Reaction Status Date / Time codeine (CODEINE) Allergy Unknown UNK Verified 03/26/25 12:06 morphine (MORPHINE) Allergy Unknown HIVES Verified 03/26/25 12:06 Sulfa (Sulfonamide Allergy Unknown ITCH Verified 03/26/25 12:06 Antibiotics) (SULFA (SULFONAMIDE ANTIBIOTICS)) Home Medications ?Medication ?Instructions ?Recorded ?Confirmed ?Last Taken ?Type acyclovir 400 mg tablet 1 tab PO BID 06/14/20 06/14/20 Unknown History anastrozole 1 mg tablet 1 tab PO DAILY 06/14/20 06/14/20 Unknown History citalopram 40 mg tablet 1 tab PO DAILY 06/14/20 06/14/20 Unknown History natalizumab 300 mg/15 mL mg IV 06/14/20 06/14/20 Unknown History intravenous solution (Tysabri) omeprazole 20 mg capsule,delayed 1 cap PO BID 06/14/20 06/14/20 Unknown History release ondansetron 8 mg disintegrating 1 tab PO Q8H PRN Nausea 06/14/20 06/14/20 Unknown History tablet Exam Airway Mallampati Class: II TM Dist: >3cm Neck ROM: Full Loose/Missing/Broken Teeth: Yes and Lower Heart: ok Lungs: ok Assessment and Plan Assessment Anesthesia Assessment: Anesthesia Plan Discussed Final Anesthetic Review Family History of Problems with Anesthesia: No NPO: Yes ASA Class: III Final Preanesthetic Review: No Changes in Pt Med Stat, Meds/Allgs Chart Reviewed, Consent Obtained/Reviewed and Anes Risks/Benef Reviewed Patient Risk: Intermediate Procedure Risk: Intermediate Anesthetic Plan Anesthetic Plan: Agree w/ Assess. and Plan and TIVA Disposition: Standard PACU
[2025-04-18 09:52] VITALS: BMI 23.2
[2025-04-18 10:01] VITALS: BP 128/85; PULSE 81; RESP 16; TEMP 36.9; O2SAT 99
[2025-04-18] MEDS: Lactated Ringers 1,000 ML 100 ML IVCONT (10:02)
--- NOTE | 2025-04-18 10:04 | MHC.SHP ---
Pre-Procedural Eval Section A - 24 Hr Update-Section A only Date of Service: 04/18/25 Section B - Complete if H&P > 30 days Chief Complaint: screening,reflux Relevant Family History (Specify if Yes): No Relevant Social History: Tobacco Use Present Medications: see Short Stay Collaborative assessment Medical History: Significant History (GERD (gastroesophageal reflux disease) Breast cancer Degenerative disc disease, cervical Genital herpes Anxiety Depression Multiple sclerosis) History of Previous Operations: Relevant previous surgery/procedure and date(s) (Hx of colonoscopy Status post right breast lumpectomy Hx of exploratory laparotomy History of left knee surgery H/O partial thyroidectomy H/O: hysterectomy) Allergies: Allergies Allergy/AdvReac Type Severity Reaction Status Date / Time codeine (CODEINE) Allergy Unknown UNK Verified 03/26/25 12:06 morphine (MORPHINE) Allergy Unknown HIVES Verified 03/26/25 12:06 Sulfa (Sulfonamide Allergy Unknown ITCH Verified 03/26/25 12:06 Antibiotics) (SULFA (SULFONAMIDE ANTIBIOTICS)) Review of Systems Sugical H&P ROS: Negative: Constitution, Cardiovascular, Respiratory, Neurological, Psychiatric, Hem-Onc, Allergic/Immunologic, Gastrointestinal, Genitourinary, Musculoskeletal, Integumentary, Endocrine and Eyes/Ears/Nose/Throat Exam Surgical H&P Exam: Normal: HEENT, Normal: Heart, Normal: Lungs, Normal: Extremities, Normal: Abdomen, Normal: Skin and Normal: Neurological Plan Diagnosis/Plan: Unchanged I have reviewed the history and physical and performed a pertinent physical examination on my patient. No changes have occurred unless specified. Time Spent With Patient Time: Total time managing care of this patient today ____ minutes.
--- NOTE | 2025-04-18 11:50 | HO.OPN-COLON ---
Colonoscopy Operative Note Operative Note Date of Service: 04/18/25 Narrative: Operative Information Procedure Description: Colonoscopy Indication: hx of polyps Anesthesia: MAC COLONOSCOPY Instrument: Olympus variable stiffness pediatric scope 190L Colonoscopy Monitoring: Vital signs and clinical assessment, continuous EKG monitoring, Pulse oximetry, Carbon Dioxide monitoring and blood pressure monitoring were done throughout the procedure. Colon withdrawal time was 36 minutes. Procedure: The patient was placed in the left lateral decubitis position and pre-procedure medications were administered. After a digital rectal examination of the ano-rectum, the video colonoscope was inserted into the rectum and advanced through the colon to the cecum/TI. The colonoscope was slowly withdrawn in a retrograde panoramic fashion and the colon mucosa was carefully examined including a retroflexed view of the rectum. Findings and interventions are described below. Procedure Difficulty: moderate Findings: Terminal Ileum-normal Cecum:normal Ascending Colon: prior tatoo noted, adjacent there appeared to be a laterally spreading granular polyp about 10 mm, lifted with eleview and removed with cold snare Transverse Colon - 5-6 mm sessile polyp removed with cold forceps Descending Colon:normal Sigmoid Colon: x 2 sessile polyps 8-10 mm removed with cold snare Rectum: Retroflexion with small internal hemorrhoids seen, grade I Anorectum - normal Intervention: cold snare, elview injection, cold forceps Colon preparation: [place] Bowel Preparation Scale Right colon; 1-2 Transverse colon: 1-2 Left colon; 2 (0 = Unprepared colon segment with mucosa not seen due to solid stool that cannot be cleared. 1 = Portion of mucosa of the colon segment seen, but other areas of the colon segment not well seen due to staining, residual stool and/or opaque liquid. 2 = Minor amount of residual staining, small fragments of stool and/or opaque liquid, but mucosa of colon segment seen well. 3 = Entire mucosa of colon segment seen well with no residual staining, small fragments of stool or opaque liquid) Impression and Post Procedure Diagnosis: colon polyps internal hemorrhoids Plan: High fiber diet leaflet Avoid straining at stool, epsom salts and sitz bath, anusol supps or cream Repeat Colonoscopy in 6 months with 2 d of clears Above findings were reviewed with the patient and relevant handouts were provided if indicated.
[2025-04-18 11:58] VITALS: BP 126/79; PULSE 82; RESP 18; TEMP 36.1; O2SAT 99
[2025-04-18 12:13] VITALS: BP 125/81; PULSE 78; RESP 17; TEMP 36.1; O2SAT 96
== END 2025-04-18 12:47 | disposition home or self-care (01) ==
PROVIDERS: PCP Internal Medicine Medical Oncology; Visit Provider Internal Medicine Gastroenterology
PROC: (CPT 45385; principal; 2025-04-18 12:40)
DX: Z12.11 Encounter for screening for malignant neoplasm of colon (principal); D12.2 Benign neoplasm of ascending colon; D12.3 Benign neoplasm of transverse colon; D12.5 Benign neoplasm of sigmoid colon; K64.0 First degree hemorrhoids; Z86.0101 Personal history of adenomatous and serrated colon polyps; Z80.0 Family history of malignant neoplasm of digestive organs; K21.9 Gastro-esophageal reflux disease without esophagitis; K29.70 Gastritis, unspecified, without bleeding; K29.80 Duodenitis without bleeding; K44.9 Diaphragmatic hernia without obstruction or gangrene; G35 Multiple sclerosis; F17.210 Nicotine dependence, cigarettes, uncomplicated; F12.90 Cannabis use, unspecified, uncomplicated
CPT/HCPCS: 45385; 45380; 45381; 88305; 88313; 88342; J2003; J2704

== ENCOUNTER → 2025-04-18 08:50 | Outpatient (BNV) | payer MEDICARE, MEDICAID, SELFPAY | PROVIDERS: PCP Internal Medicine Medical Oncology; Visit Provider Internal Medicine Gastroenterology | DX: Z12.11 Encounter for screening for malignant neoplasm of colon (principal); Z86.0100 Personal history of colon polyps, unspecified; D12.2 Benign neoplasm of ascending colon; D12.3 Benign neoplasm of transverse colon; D12.5 Benign neoplasm of sigmoid colon; K64.0 First degree hemorrhoids | CPT/HCPCS: 45381; 45385 ==

== ENCOUNTER 2025-07-11 11:48 | Outpatient (REF) | payer MEDICARE, MEDICAID, SELFPAY ==
[2025-07-13 21:37] LABS: JCV Index Value 0.19 index
== END 2025-07-11 11:49 | disposition home or self-care (01) ==
LOC: HO.LAB 11:48
PROVIDERS: PCP Internal Medicine Medical Oncology; Referring Provider Internal Medicine Medical Oncology; Visit Provider Registered Nurse
DX: G35.A Relapsing-remitting multiple sclerosis (principal); Z79.891 Long term (current) use of opiate analgesic; Z79.620 Long term (current) use of immunosuppressive biologic; Z79.899 Other long term (current) drug therapy; Z01.84 Encounter for antibody response examination
CPT/HCPCS: 36415; 86711; 99212

== ENCOUNTER 2025-07-11 11:48 | Outpatient (AMB) | payer MEDICARE, MEDICAID, SELFPAY ==
--- OUTSIDE RECORDS SUMMARY | 2025-03-05 04:43 | XMS_ITS ---
Author Organization Jayden Henriquez III, MD Address [address] [place] [address] Care Team Providers Care Distributed Energy Systems Consultant Name Role Phone Dr. Jayden Henriquez III Primary Care Provider [phone] Amber MORFIN, [facility] Unavailable Unavailabl e REASON FOR VISIT Rx Request Social History Sex Assigned At : Social History Observation Description Sex Assigned At Female Encounters Encounter Location Date Provider Diagnosis Jayden Henriquez III, MD [address] [place] [address] [place] [address] 03/05/2025 Jayden Henriquez Plan Of Treatment Next Appt Details Provider Name:Jayden Henriquez , 08/06/2025 09:00:00 AM, [address] [place] [address] [place], [address], Provider Name:Jayden Henriquez , 09/11/2025 09:45:00 AM, [address] [place] [address] [place], [address], Progress Notes * J Carlos SPENCEDheerajB: 8 (54 yo F)Acc No.[id number]:03/05/2025 Patient: Salome RHODES :1970 A ge:54 Y S ex:Female Address:[address] [place] [address], [address], [place], [address] * true * Date: Generated for Ashleigh yung/Dennis/Maryitting on: 09/10/2024 11:02 PM EST
--- OUTSIDE RECORDS SUMMARY | 2025-03-05 05:11 | XMS_ITS ---
Author Organization Jayden Henriquez III, MD Address [address] [facility] [address] [place] [address] Care Team Providers Care Thumb Sewer Name Role Phone Dr. Jayden Henriquez III Primary Care Provider [phone] Amber MORFIN, Rosa M Unavailable Unavailabl e Medications Medication SIG (Take, Route, Fr equency, Duration) Notes Start Date End Date Status Amoxicillin 250 MG [address] ee times a day for 7 days 03/05/2025 03/12/2025 Active Social History Sex Assigned At : Social History Observation Description Sex Assigned At Female Encounters Encounter Location Date Provider Diagnosis Jayden Henriquez III, MD [address] [place] [address] [place] [address] 03/05/2025 Jayden Henriquez Plan Of Treatment Medication Medication Name Sig Start Date Stop Date Notes Amoxicillin 250 MG [address] ee times a day for 7 days 03/05/2025 03/12/2025 Next Appt Details Provider Name:Jayden Henriquez , 08/06/2025 09:00:00 AM, [address] [facility] [place], [address], Provider Name:Jayden Henriquez , 09/11/2025 09:45:00 AM, [address] [facility] [place], [address], Progress Notes * Nirmal SPENCE: 8 (54 yo F)Acc No.[id number]:03/05/2025 Patient: Salome RHODES :1970 A ge:54 Y S ex:Female Address:[address] [place] [address], [place], [address] * Refills Start Amoxicillin Capsule, 250 MG, Orally, 21 Capsule, 1 capsule, Three times a day, 7 days, Refills=0 * true * Date: Generated for Ashleigh yung/Dennis/Maryitting on: 09/10/2024 10:59 PM EST
--- OUTSIDE RECORDS SUMMARY | 2025-03-14 04:00 | XMS_ITS ---
Author Organization Jayden Henriquez III, MD Address [address] [place] [address] [address] [place] [address] Care Team Providers Care Packing Tractor Machine Operator Name Role Phone Dr. Jayden Henriquez III Primary Care Provider Amber MORFIN, Rosa M [...] every 8 hrs prn vertigo 04/21/2023 Active Nicotine Step 1 21 MG/24HR 1 patch to sk in Transdermal Once a day 08/03/2023 Active Ibuprofen 400 MG TAKE 1 TABLET BY OSWALDO TH THREE TIMES DAILY WITH FOOD OR MILK FOR 14 DAYS if NEEDED Orally Three times a day Active dexAMETHasone 2 MG 1 tablet Orally ever y 12 hrs 09/01/2023 Active Gabapentin 300 MG TAKE 1 CAPSULE BY MO [facility] THREE TIMES DAILY FOR 15 DAYS Active Triamcinolone Acetonide 0.1 % 1 application Externally Twice a day 10/14/2022 Active Tysabri 300 MG/15ML 15 ml Intravenous Active Ondansetron 8 MG DISSOLVE 1 TABLET ON THE TONGUE EVERY 8 HOURS FOR 10 DAYS for nausea Orally shaunna 8 hours Active Acyclovir 400 MG TAKE 1 TABLET BY OSWALDO TH TWICE DAILY Active Cyclobenzaprine HCl 10 MG TAKE 1 TABLET BY MOUTH THREE TIMES DAILY FOR 10 DAYS NEEDED FOR MUSCLE SPASM Active Omeprazole 20 MG 1 capsule 1 hour bef ore meal Orally Twice a day Active Anastrozole 1 MG TAKE 1 TABLET BY OSWALDO TH EVERY DAY Active Citalopram Hydrobromide 40 MG TAKE 1 TABLET BY MOUTH EVERY DAY Active Social History Tobacco Use: Social History Observation Description Date Details (start date - stop date) Former Smoker NA - NA Sex Assigned At : Social History Observation Description Sex Assigned At Female Tobacco Control (Standard) Question Answer Notes Tobacco use: Former smoker Vital Signs Temperature 98.6 degrees Fahrenheit 03/14/20 25 Blood pressure systolic 116 mm Hg 03/14/20 25 Blood pressure diastolic 80 mm Hg 025 Heart Rate 90 /min 03/14/2025 Height 66 in 03/14/2025 Weight 146 lbs 03/14/2025 BMI 23.56 kg/m2 03/14/2025 Encounters Encounter Location Date Provider Diagnosis Jayden Henriquez III, MD [address] [place] [address] [place] [address] 03/14/2025 Jayden Henriquez Multiple sclerosis G 35 ; Depression F32.9 ; Insomnia G47.00 ; Episodic tension-type headache, not intractable G44.219 ; Hyperlipidemia, unspecified hyperlipidemia type E78.5 ; Invasive lobular carcinoma of right breast in female C50.911 ; Cervical radiculopathy M54.12 ; Former smoker Z87.891 ; COPD (chronic obstructive pulmonary disease) J44.9 and Family history of dilated cardiomyopathy Z82.49 Assessments Encounter Date Diagnosis (ICD Code) Assessment Notes Treat ment Notes Treatment Clinical Notes 03/14/2025 Multiple sclerosis (ICD-10 - G35) She has had no exacerbation of multiple sclerosis and is asymptomatic at this time.Her infusion of Tysabri was given without any Difficulty. 03/14/2025 Depression (ICD-10 - F32.9) She is being treated for this problem and seems to have recovered completely. She is compliant with all of her medications. 03/14/2025 Insomnia (ICD-10 - G47.00) I have recommended she use either an antihistamine or melatonin. She is no longer requiring prescription medication. 03/14/2025 Episodic tension-typ e headache, not intractable (ICD-10 - G44.219) She denies having any recent headaches lately. 03/14/2025 Hyperlipidemia, unspecified hyperlipidemia type (ICD-10 - E78.5) Comprehensive blood work was ordered today. 03/14/2025 Invasive lobular carcinoma of right breast in female (ICD-10 - C50.911) She will continue on anastrozole. There was no sign of a new primary breast cancer or recurrence today. 03/14/2025 Cervical radiculopathy (ICD-10 - M54.12) She is beginning to respond to treatment with decreasing pain and more mobility. Her treatment will continue for another week. No change in her regimen was needed. 03/14/2025 Former smoker (ICD-1 0 - Z87.891) We made a plan to continue abstinence in times of stress or illness. 03/14/2025 COPD (chronic obstructive pulmonary disease) (ICD-10 - J44.9) On examination today her breath sounds were very diminished in all lung andrade, but there was no wheezing or rales, or rhonchi. She was moving air well at a rate of 14 breast per minute, without distress. 03/14/2025 Family history of dilated cardiomyopathy (ICD-10 - Z82.49) She will have an EKG and an echocardiogram. Plan Of Treatment Medication Medication Name Sig Start Date Stop Date Notes Meclizine HCl 25 MG 1 tablet as needed O rally every 8 hrs prn vertigo 04/21/2023 Nicotine Step 1 21 MG/24HR 1 patch to sk in Transdermal Once a day 08/03/2023 Ibuprofen 400 MG TAKE 1 TABLET BY OSWALDO TH THREE TIMES DAILY WITH FOOD OR MILK FOR 14 DAYS if NEEDED Orally Three times a day dexAMETHasone 2 MG 1 tablet Orally every 12 hrs 09/01/2023 Gabapentin 300 MG TAKE 1 CAPSULE BY MO [facility] THREE TIMES DAILY FOR 15 DAYS Triamcinolone Acetonide 0.1 % 1 applicat ion Externally Twice a day 10/14/2022 Tysabri 300 MG/15ML 15 ml Intravenous Ondansetron 8 MG DISSOLVE 1 TABLET ON THE TONGUE EVERY 8 HOURS FOR 10 DAYS for nausea Orally shaunna 8 hours Acyclovir 400 MG TAKE 1 TABLET BY OSWALDO TH TWICE DAILY Cyclobenzaprine HCl 10 MG TAKE 1 TABLET BY MOUTH THREE TIMES DAILY FOR 10 DAYS NEEDED FOR MUSCLE SPASM Omeprazole 20 MG 1 capsule 1 hour bef ore meal Orally Twice a day Anastrozole 1 MG TAKE 1 TABLET BY OSWALDO TH EVERY DAY Citalopram Hydrobromide 40 MG TAKE 1 TAB LET BY MOUTH EVERY DAY Next Appt Details Follow Up: 4 Weeks, Reason: ov Provider Name:Jayden Perlane , 08/06/2025 09:00:00 AM, [address] [place] [address] [address], [place], [address], Provider Name:Jayden Perlane , 09/11/2025 09:45:00 AM, [address] [place] [address] [address], [place], [address], Procedure Notes * Category Sub-Category Detail Notes Chemotherapy Start and End Time: start, 9:00 am, end, 10:00 am Site: left hand Consent: verbal consent was o btained prior to procedure Medications given: Tysabri 300 mg Monitored by: MANISH Hardwick port flush none route IV Progress Notes * Sun SPENCEB: 8 (54 yo F)Acc No.[id number]:03/14/2025 Patient: Salome RHODES Provider: Deepa Henriquez MD :1970 A ge:54 Y S ex:Female Date:03/14/2025 Address:[address] [place] [address] [address], [id number] Subjective: * Chief Complaints: * T ysabri infusion * HPI: C OVID-19 Screening: She returns to the office for medical management as well as an infusion of Tysabri. She is dealing with some environmental allergies, but her sore throat has resolved. She is feeling healthy and well tooday. No new problems were found on her examination. An IV was begun in the left arm and she was treated with Tysabri over an hour without difficulties. He tolerated it well. Questions H ave you had any new onset fever, chills, cough, congestion, sore throat, shortness of breath, muscle aches? N o * ROS: G eneral/Constitutional: pain C ervical spine with rotation, otherwise only normal aches and pains. C hills d enies. F atigue a dmits. F ever d enies. ? E NT: Decreased hearing d enies. R espiratory: Cough d enies. C ardiovascular: Chest pain with exertion d enies. D yspnea on exertion?denies. S hortness of breath d enies. G astrointestinal: Constipation o ccasional. D ecreased appetite d enies. D iarrhea d enies. H eartburn d enies. N ausea d enies. R ectal bleeding d enies. V omiting d enies. H ematology: bruising d enies. p etechiae d enies. S wollen glands n one have been noted. G enitourinary: Frequent urination a t night. M usculoskeletal: Muscle aches d enies. P ainful joints N delano,. S ciatica d enies. W eakness d enies. S kin: Itching d enies. R christian d enies. S kin lesion(s)?denies. N eurologic: Difficulty speaking d enies. D izziness d enies.?Headache d enies. L ow back pain d enies. P sychiatric: Depressed mood d enies. * Medical History: * Surgical History: H ysterectomy without oophorectomy [id number] laparotomy, [facility], Dr. Mercedes for blockage 2013partial thyroidectomy for benigh nodule 1994left patellar surgery age 9lumpectomy and sentinel node biopsy right breast, invasive lobular carcinoma 2019No history * Hospitalization/Major Diagno stic Procedure: N o history * Family History: F ather: alive 67 yrs, CAD, diagnosed with HTN. M other: alive 66 yrs, well, diagnosed with HTN. 1 brother(s) , 1 sister(s) - healthy. 2 son(s) - healthy. . Her sister, Elvi, had thyroid cancer several years ago. She has two sons Leo 27, Sylvain 23 alive and well. A maternal uncle at the age of 36 of cancer, a maternal aunt at 62 but had breast cancer at 26 and AUDIOVISUAL TECHNICIAN cancer, maternal aunt 60 of cancer, maternal grandmother of 60 of breast cancer. A paternal grandmother had breast cancer at the age of 55. A maternal grandfather had colon cancer at the age of 32. She is not aware of any family history of mental illness or addiction or substance abuse. Mother diagnosed with alzheimer's. * Social History: T obacco Use: T obacco Control (Standard) T obacco use: F ormer smoker S he was born in [place]. Her mother is a nurse. The patient is disabled from multiple sclerosis. 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 Her father is a truck driving instructor. She is single with no children. Smoking: Patient smokes 10 cigarettes a day. * Medications: T akingIbuprofen 400 MG Tablet TAKE 1 TABLET BY MOUTH THREE TIMES DAILY WITH FOOD OR MILK FOR 14 DAYS if NEEDED Orally Three times a day Omeprazole 20 MG Capsule Delayed Release 1 [...] FOR 10 DAYS NEEDED FOR MUSCLE SPASM Triamcinolone Acetonide 0.1 % Cream 1 application [...] List reviewed and reconciled with the patientTaking Ibuprofen 400 MG Tablet TAKE 1 TABLET BY MOUTH THREE TIMES DAILY WITH FOOD OR MILK FOR 14 DAYS if NEEDED Orally Three times a day Taking Omeprazole 20 MG Capsule Delayed Release 1 [...] 10 DAYS NEEDED FOR MUSCLE SPASM Taking Triamcinolone Acetonide 0.1 % Cream 1 [...] reviewed and reconciled with the patient * Allergies: M orphine SulfateCodeine SulfateSulfacetamideno[Allergies Verified] Objective: * Vitals: H t: 66, Wt: 146, BMI:23.56, BP: 116/80, HR: 90, Temp: 98.6, Ht-cm: 167.64, Wt-k.22. * Examination: G eneral Examination: GENERAL APPEARANCE: p leasant, well nourished, well developed, in no acute distress, calm and relaxed, woman. HEAD: a traumatic, normocephalic. EYES: e natalie, perrla, anicteric, conjugate. EARS: n ormal. NOSE: s eptum intact. ORAL CAVITY: n ormal, unremarkable. NECK/THYROID: n o jugular venous distention, no carotid bruit, thyroid normal, Mild decreased range of motion. LYMPH NODES: n o enlarged lymph nodes,spleen normal. SKIN: n o suspicious lesions, anicteric. HEART: n o clicks, gallops, murmurs, or rubs, regular rhythm, S1, S2 normal, no s3, or vascular bruits. LUNGS: c lear to auscultation . BREASTS: N ot examined. ABDOMEN: b owel sounds normal, no ascites, no organomegaly, no mass. RECTAL EXAM: n ot examined. MUSCULOSKELETAL: e xtremities unremarkable, no clubbing, cyanosis or edema. PERIPHERAL PULSES: n ormal. NEUROLOGIC: a lert and oriented, cranial nerves 2-12 grossly intact, deep tendon reflexes 2+ symmetrical, motor strength normal upper and lower extremities, sensory exam intact. PSYCH: a lert, oriented. Assessment: * Assessment: 1. M ultiple sclerosis - G35 (Primary) N otes :She has had no exacerbation of multiple sclerosis and is asymptomatic at this time.Her infusion of Tysabri was given without any Difficulty. 2 . D epression - F32.9 N otes :She is being treated for this problem and seems to have recovered completely. She is compliant with all of her medications. 3 . I nsomnia - G47.00 N otes :I have recommended she use either an antihistamine or melatonin. She is no longer requiring prescription medication. 4 . E pisodic tension-type headache, not intractable - G44.219 ?Notes :She denies having any recent headaches lately. 5 . H yperlipidemia, unspecified hyperlipidemia type - E78.5 N otes :Comprehensive blood work was ordered today. 6 . I nvasive lobular carcinoma of right breast in female - C50.911 N otes :She will continue on anastrozole. There was no sign of a new primary breast cancer or recurrence today. 7 . C ervical radiculopathy - M54.12 N otes :She is beginning to respond to treatment with decreasing pain and more mobility. Her treatment will continue for another week. No change in her regimen was needed. 8 . F ormer smoker - Z87.891 N otes :We made a plan to continue abstinence in times of stress or illness. 9 . C OPD (chronic obstructive pulmonary disease) - J44.9 N otes :On examination today her breath sounds were very diminished in all lung andrade, but there was no wheezing or rales, or rhonchi. She was moving air well at a rate of 14 breast per minute, without distress. 1 0. F amily history of dilated cardiomyopathy - Z82.49 N otes :She will have an EKG and an echocardiogram. Plan: * Treatment: 2. O thers Continue Ibuprofen Tablet, 400 MG, TAKE 1 TABLET BY MOUTH THREE TIMES DAILY WITH FOOD OR MILK FOR 14 DAYS if NEEDED, Orally, Three times a day; C ontinue Omeprazole Capsule Delayed Release, 20 MG, 1 capsule 1 hour before meal, Orally, Twice a day; C ontinue Acyclovir Tablet, 400 MG, TAKE 1 TABLET BY MOUTH TWICE DAILY; C ontinue Cyclobenzaprine HCl Tablet, 10 MG, TAKE 1 TABLET BY MOUTH THREE TIMES DAILY FOR 10 DAYS NEEDED FOR MUSCLE SPASM; C ontinue Meclizine HCl Tablet, 25 MG, 1 tablet as needed, Orally, every 8 hrs prn vertigo; C ontinue Gabapentin Capsule, 300 MG, TAKE 1 CAPSULE BY MOUTH THREE TIMES DAILY FOR 15 DAYS. * Procedures: C hemotherapy: Start and End Time: s tart, 9:00 am, end, 10:00 am. Site: [facility]. Consent: v erbal consent was obtained prior to procedure.? Medications given: T ysabri 300 mg. Monitored by: MANISH Guzman. port flush n one. route I V. * Procedure Codes: 9 6413 CHEMO, IV INFUSION, 1 [id number] NATALIZUMAB INJECTION * Preventive Medicine: Counseling: S moking/Tobacco Use Patient counseled on the dangers of tobacco use and urged to quit. 0 03/14/2025 Patient Lifestyle Goals P atient wants to quit Treatment Goals C ut down by 1 cigarette a week, Set a quit date Barriers S ocial smoker, Stress Self-Management Plan M annamarie a plan to cut down number of cigarettes over time and set a date to work towards quitting COPD Care Plan: P atient Lifestyle Goals B e able to be more active with friends and family, Reduce number of ED and hospitalizations, Relieve symptoms and improve quality of life. T reatment Goals E at a nutritious diet and increase water consumption to 6-8 glasses a day, Quit Smoking. B arriers n o barriers. S elf-Managment Goals M annamarie a plan for quitting smoking. * Follow Up: 4 Weeks (Reason: ov) * Images: * Sign off status: Completed true * Provider: Deepa Henriquez MD Date: 0 03/14/2025 Generated for Ashleigh yung/Dennis/Maryitting on: 09/10/2024 11:00 PM EST History and Physical Notes * HPI (History [...] venous di stention, no carotid bruit, thyroid normal, Mild decreased range of motion HEART: no clicks, gallops, murmurs, or rubs, regular rhythm, S1, S2 normal, no s3, or vascular bruits LUNGS: clear to auscultatio n ABDOMEN: bowel sounds normal, no ascites, no [...]
--- OUTSIDE RECORDS SUMMARY | 2025-03-23 08:08 | XMS_ITS ---
Author Organization Jayden Henriquez III, MD Address [address] [place] [address] [place] [address] Care Team Providers Care Market Stall Vendor Name Role Phone Dr. Jayden Henriquez III Primary Care Provider Amber MORFIN, [facility] Unavailable Unavailabl e REASON FOR VISIT Rx Refill Medications Medication SIG (Take, Route, Fr equency, Duration) Notes Start Date End Date Status Gabapentin 300 MG 1 capsule Orally 3 t imes a day for 15 days Active Social History Sex Assigned At : Social History Observation Description Sex Assigned At Female Encounters Encounter Location Date Provider Diagnosis Jayden Henriquez III, MD [address] [place] [address] [place] [address] 03/23/2025 Jayden Henriquez Plan Of Treatment Medication Medication Name Sig Start Date Stop Date Notes Gabapentin 300 MG 1 capsule Orally 3 t imes a day for 15 days Next Appt Details Provider Name:Jayden Henriquez , 08/06/2025 09:00:00 AM, [address] [place] [address] [place], [address], Provider Name:Jayden Henriquez , 09/11/2025 09:45:00 AM, [address] [place] [address] [place], [address], Progress Notes * Sun SPENCEB: 8 (54 yo F)Acc No.[id number]:03/23/2025 Patient: Mahendra Salome MILLER :1970 A ge:54 Y S ex:Female Address:[address] [place] [address], [place], [place], [place] [address] * Refills Refill Gabapentin Capsule, 300 MG, Orally, 45 Capsule, 1 capsule, 3 times a day, 15 days, Refills=5 * true * Date: Generated for Ashleigh yung/Dennis/Maryitting on: 09/10/2024 11:01 PM EST
--- OUTSIDE RECORDS SUMMARY | 2025-04-11 08:00 | XMS_ITS ---
Author Organization Jayden Henriquez III, MD Address [address] [place] [address] [address] [place] [address] Care Team Providers Care Earth Observations Chief Scientist Name Role Phone Dr. Jayden Henriquez III [...] Duration) Notes Start Date End Date Status Triamcinolone Acetonide 0.1 % 1 application Externally Twice a day 10/14/2022 Active Tysabri 300 MG/15ML 15 ml Intravenous Active Acyclovir 400 MG TAKE 1 TABLET BY OSWALDO TH TWICE DAILY Active Cyclobenzaprine HCl 10 MG TAKE 1 TABLET BY MOUTH THREE TIMES DAILY FOR 10 DAYS NEEDED FOR MUSCLE SPASM Active Ondansetron 8 MG DISSOLVE 1 TABLET ON THE TONGUE EVERY 8 HOURS FOR 10 DAYS for nausea Orally shaunna 8 hours Active Anastrozole 1 MG TAKE 1 TABLET BY OSWALDO TH EVERY DAY Active Citalopram Hydrobromide 40 MG TAKE 1 TABLET BY MOUTH EVERY DAY Active Ibuprofen 400 MG TAKE 1 TABLET BY OSWALDO TH THREE TIMES DAILY WITH FOOD OR MILK FOR 14 DAYS if NEEDED Orally Three times a day Active Omeprazole 20 MG 1 capsule 1 hour bef ore meal Orally Twice a day Active Gabapentin 300 MG 1 capsule Orally 3 t imes a day Active dexAMETHasone 2 MG 1 tablet Orally ever y 12 hrs 09/01/2023 Active Meclizine HCl 25 MG 1 tablet as needed Orally every 8 hrs prn vertigo 04/21/2023 Active Nicotine Step 1 21 MG/24HR 1 patch to sk in Transdermal Once a day 08/03/2023 Active Social History Tobacco Use: Social History Observation Description Date Details (start date - stop date) Former Smoker NA - NA Sex Assigned At : Social History Observation Description Sex Assigned At Female Tobacco Control (Standard) Question Answer Notes Tobacco use: Former smoker Encounters Encounter Location Date Provider Diagnosis Jayden Henriquez III, MD [address] [place] [address] [address] [place] [id number] 04/11/2025 Jayden Henriquez Multiple sclerosis G35 Assessments Encounter Date Diagnosis (ICD Code) Assessment Notes Treatment Notes Treatment Clinical Notes 04/11/2025 Multiple sclerosis (ICD-10 - G35) Plan Of Treatment Medication Medication Name Sig Start Date Stop Date Notes Triamcinolone Acetonide 0.1 % 1 applicat ion Externally Twice a day 10/14/2022 Tysabri 300 MG/15ML 15 ml Intravenous Acyclovir 400 MG TAKE 1 TABLET BY OSWALDO TH TWICE DAILY Cyclobenzaprine HCl 10 MG TAKE 1 TABLET BY MOUTH THREE TIMES DAILY FOR 10 DAYS NEEDED FOR MUSCLE SPASM Ondansetron 8 MG DISSOLVE 1 TABLET ON THE TONGUE EVERY 8 HOURS FOR 10 DAYS for nausea Orally shaunna 8 hours Anastrozole 1 MG TAKE 1 TABLET BY OSWALDO TH EVERY DAY Citalopram Hydrobromide 40 MG TAKE 1 TAB LET BY MOUTH EVERY DAY Ibuprofen 400 MG TAKE 1 TABLET BY OSWALDO TH THREE TIMES DAILY WITH FOOD OR MILK FOR 14 DAYS if NEEDED Orally Three times a day Omeprazole 20 MG 1 capsule 1 hour bef ore meal Orally Twice a day Gabapentin 300 MG 1 capsule Orally 3 t imes a day dexAMETHasone 2 MG 1 tablet Orally every 12 hrs 09/01/2023 Meclizine HCl 25 MG 1 tablet as needed O rally every 8 hrs prn vertigo 04/21/2023 Nicotine Step 1 21 MG/24HR 1 patch to sk in Transdermal Once a day 08/03/2023 Next Appt Details Provider Name:Jayden Henriquez , 08/06/2025 09:00:00 AM, [address] [place] [address] [address], [place], [phone], Provider Name:Jayden Davison Martinez , 09/11/2025 09:45:00 AM, [address] [place] [address] [address], [place], [id number], Procedure Notes * Category Sub-Category Detail Notes Chemotherapy Start and End Time: - Site: - Consent: - Medications given: - Monitored by: - route - Progress Notes * Sun SPENCEB: 8 (55 yo F)Acc No.[id number]:04/11/2025 Patient: Salome RHODES Provider: Deepa Henriquez MD :1970 A ge:54 Y S ex:Female Date:04/11/2025 Address:[address] [place] [address] [address], [id number] Subjective: * Chief Complaints: * 1 . Tysabri infusion. * ROS: G eneral/Constitutional: pain o nly normal aches and pains. C hills d enies.?Fatigue a dmits. F ever d enies. E NT: Decreased hearing d enies. R espiratory: Cough d enies. C ardiovascular: Chest pain with exertion d enies. D yspnea on exertion?denies. S hortness of breath d enies. G astrointestinal: Constipation d enies. D ecreased appetite d enies.?Diarrhea d enies. H eartburn d enies. N ausea d enies. R ectal bleeding?denies. V omiting d enies. H ematology: bruising d enies. p etechiae d enies. S wollen glands n one have been noted. G enitourinary: Frequent urination d enies. M usculoskeletal: Muscle aches d enies. P ainful joints d enies. S ciatica d enies. W eakness d enies. S kin: Itching d enies. R christian d enies. S kin lesion(s)?denies. N eurologic: Difficulty speaking d enies. D izziness d enies.?Headache d enies. L ow back pain d enies. P sychiatric: Depressed mood d enies. * Medical History: M ultiple sclerosis age 33, Depression/anxiety, Genital herpes age 22, Onset of menopause 2014 after hysterectomy, Tobacco dependence, Degenerative disc disease cervical spine, 2019 [id number] stage II invasive breast cancer left, estrogen and progesterone receptor positive, HER-2 negative, node-negative, Menarche age 11, , Breast cancer - occurred approximately 4-5 years ago, Multiple sclerosis - ongoing. * Surgical History: H ysterectomy without oophorectomy 1991, [id number] , laparotomy, [facility], Dr. Mercedes for blockage 2013, partial thyroidectomy for benigh nodule 1993, left patellar surgery age 9, lumpectomy and sentinel node biopsy right breast, invasive lobular carcinoma 2019, No history . * Hospitalization/Major Diagno stic Procedure: N o history . * Family History: F ather: alive 65 [...] but had breast cancer at 24 and FIELD ASSOCIATE cancer, maternal aunt 60 of cancer, maternal [...] ormer smoker S he was born in [place]. Her mother is a nurse. The patient is disabled from multiple sclerosis. 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 She is single with no children. Smoking: Patient smokes 10 cigarettes a day. * Medications: T aking Ibuprofen 400 MG Tablet TAKE 1 TABLET BY MOUTH THREE TIMES DAILY WITH FOOD OR MILK FOR 14 DAYS if NEEDED Orally Three times a day , Taking Omeprazole 20 MG Capsule Delayed Release 1 capsule 1 hour before meal Orally Twice a day , Taking Citalopram Hydrobromide 40 MG Tablet TAKE 1 TABLET BY MOUTH EVERY DAY , Taking Anastrozole 1 MG Tablet TAKE 1 TABLET BY MOUTH EVERY DAY , Taking Ondansetron 8 MG Tablet Disintegrating DISSOLVE 1 TABLET ON THE TONGUE EVERY 8 HOURS FOR 10 DAYS for nausea Orally shaunna 8 hours , Taking Acyclovir 400 MG Tablet TAKE 1 TABLET BY MOUTH TWICE DAILY , Taking Cyclobenzaprine HCl 10 MG Tablet TAKE 1 TABLET BY MOUTH THREE TIMES DAILY FOR 10 DAYS NEEDED FOR MUSCLE SPASM , Taking Triamcinolone Acetonide 0.1 % Cream 1 application Externally Twice a day , Taking Tysabri 300 MG/15ML Concentrate 15 ml Intravenous , Taking Meclizine HCl 25 MG Tablet 1 tablet as needed Orally every 8 hrs prn vertigo , Taking Nicotine Step 1 21 MG/24HR Patch 24 Hour 1 patch to skin Transdermal Once a day , Taking dexAMETHasone 2 MG Tablet 1 tablet Orally every 12 hrs , Taking Gabapentin 300 MG Capsule 1 capsule Orally 3 times a day , Medication List reviewed and reconciled with the patient * Allergies: M orphine Sulfate, Codeine Sulfate, Sulfacetamide. Objective: * Vitals: * Examination: G eneral Examination: GENERAL APPEARANCE: p leasant, well nourished, well developed, in no acute distress, calm and relaxed. HEAD: a traumatic, normocephalic. EYES: e natalie, perrla, anicteric, conjugate. EARS: n ormal. NOSE: s eptum intact. ORAL CAVITY: n ormal, unremarkable. NECK/THYROID: n o jugular venous distention, no carotid bruit, thyroid normal. LYMPH NODES: n o enlarged lymph nodes,spleen normal. SKIN: n o suspicious lesions, anicteric. HEART: n o clicks, gallops, murmurs, or rubs, regular rhythm, S1, S2 normal, no s3, or vascular bruits. LUNGS: c lear to auscultation . BREASTS: no masses palpable bilaterally. ABDOMEN: b owel sounds normal, no ascites, [...] 1. M ultiple sclerosis - G35 (Primary) Plan: * Treatment: * Procedures: C hemotherapy: Start and End Time: - . Site: - . Consent: - . Medications given: - . Monitored by: - . route - . * Procedure Codes: 9 6413 CHEMO, IV INFUSION, 1 HR, J2323 NATALIZUMAB INJECTION * Images: * The named appointment provid er may or may not be the originator of this progress note, and it is not deemed complete until electronically signed by the appointment provider. Sign off status: Pending * Provider: Deepa Henriquez MD Date: 0 04/11/2025 Generated for Printi ng/Farositag/eTransmitting on: 1 09/10/2024 11:02 PM EST History and Physical Notes * Examination Category Sub-Category Detail Notes General Examination GENERAL APPEARANCE: pleasant , well nourished, well developed, in no acute distress, calm and relaxed HEAD: atraumatic, normocep halic EYES: eomi, perrla, [...] lesion s, anicteric PERIPHERAL PULSES: normal BREASTS: no masses palpable b ilaterally MUSCULOSKELETAL: extremities unremark able, no clubbing, cyanosis or edema LYMPH NODES: no enlarged lymph no ilana,spleen normal RECTAL EXAM: not examined PSYCH: alert, oriented ORAL CAVITY: normal, unremarkable
--- OUTSIDE RECORDS SUMMARY | 2025-04-24 08:00 | XMS_ITS ---
Author Organization Jayden Henriquez III, MD Address [address] [place] [address] [address] [place] [address] Care Team Providers Care Brand Strategy Manager Name Role Phone Dr. Jayden Henriquez III Primary Care Provider [phone] Amber MORFIN, Rosa M Unavailable Unavailabl e Allergies Allergen (clinical drug ingredient) Drug/Non Drug Allergy documented on EMR Reaction Allergy Type Onset Date Status sulfacetamide Sulfacetamide Unknown Drug Allergy Active morphine Morphine Sulfate Unknown Drug Allergy Active codeine Codeine Sulfate Unknown Drug Allergy A ctive REASON FOR VISIT Tysabri infusion Medications Medication SIG (Take, Route, Frequency, Duration) Notes Start Date End Date Status dexAMETHasone 2 MG 1 tablet Orally ever y 12 hrs 09/01/2023 Active Gabapentin 300 MG 1 capsule Orally 3 t imes a day Active Nicotine Step 1 21 MG/24HR 1 patch to sk in Transdermal Once a day 08/03/2023 Active Meclizine HCl 25 MG 1 tablet as needed Orally every 8 hrs prn vertigo 04/21/2023 Active Tysabri 300 MG/15ML 15 ml Intravenous Active Triamcinolone Acetonide 0.1 % 1 application Externally Twice a day 10/14/2022 Active Cyclobenzaprine HCl 10 MG TAKE 1 [...] TABLET BY OSWALDO TH EVERY DAY Active Omeprazole 20 MG 1 capsule 1 hour bef ore meal Orally Twice a day Active Ibuprofen 400 MG TAKE 1 TABLET BY OSWALDO TH THREE TIMES DAILY WITH FOOD OR MILK FOR 14 DAYS if NEEDED Orally Three times a day Active Citalopram Hydrobromide 40 MG TAKE 1 [...] Date Provider Diagnosis Jayden Henriquez III, MD [address] [place] [address] [place] [phone] 04/24/2025 Jayden Henriquez Multiple sclerosis G35 Assessments Encounter Date Diagnosis (ICD Code) Assessment Notes Treatment Notes Treatment Clinical Notes 04/24/2025 Multiple sclerosis (ICD-10 - G35) Plan Of Treatment Medication Medication Name Sig Start Date Stop Date Notes dexAMETHasone 2 MG 1 tablet Orally every 12 hrs 09/01/2023 Gabapentin 300 MG 1 capsule Orally 3 t imes a day Nicotine Step 1 21 MG/24HR 1 patch to sk in Transdermal Once a day 08/03/2023 Meclizine HCl 25 MG 1 tablet as needed O rally every 8 hrs prn vertigo 04/21/2023 Tysabri 300 MG/15ML 15 ml Intravenous Triamcinolone Acetonide 0.1 % 1 applicat ion Externally Twice a day 10/14/2022 Cyclobenzaprine HCl 10 MG TAKE 1 TABLET BY MOUTH THREE TIMES DAILY FOR 10 DAYS NEEDED FOR MUSCLE SPASM Acyclovir 400 MG TAKE 1 TABLET BY OSWALDO TH TWICE DAILY Ondansetron 8 MG DISSOLVE 1 TABLET ON THE TONGUE EVERY 8 HOURS FOR 10 DAYS for nausea Orally shaunna 8 hours Anastrozole 1 MG TAKE 1 TABLET BY OSWALDO TH EVERY DAY Omeprazole 20 MG 1 capsule 1 hour bef ore meal Orally Twice a day Ibuprofen 400 MG TAKE 1 TABLET BY OSWALDO TH THREE TIMES DAILY WITH FOOD OR MILK FOR 14 DAYS if NEEDED Orally Three times a day Citalopram Hydrobromide 40 MG TAKE 1 TAB LET BY MOUTH EVERY DAY Next Appt Details Provider Name:Jayden Henriquez , 08/06/2025 09:00:00 AM, [address] [place] [address] [address], [place], [phone], Provider Name:Jayden Davison Martinez , 09/11/2025 09:45:00 AM, [address] [place] [address] [address], [place], [phone], Procedure Notes * Category Sub-Category Detail Notes Chemotherapy Start and End Time: - Site: - Consent: - Medications given: - Monitored by: - route - Progress Notes * Sun SPENCEB: 8 (55 yo F)Acc No.[id number]:04/24/2025 Patient: Salome RHODES Provider: Deepa Henriquez MD :1970 A ge:54 Y S ex:Female Date:04/24/2025 Address:[address] [place] [address] [address], [id number] Subjective: * Chief Complaints: * 1 . [...] dependence, Degenerative disc disease cervical spine, 2019 [id number] stage II invasive breast cancer left, estrogen and progesterone receptor positive, HER-2 negative, node-negative, Menarche age 11, , Breast cancer - occurred approximately 4-5 years ago, Multiple sclerosis - ongoing. * Surgical History: H ysterectomy without oophorectomy 1991, [id number] , [place] [facility]. Mercedes for blockage 2013, partial thyroidectomy [...] but had breast cancer at 24 and S [employer] WORK[employer] cancer, maternal aunt 60 of cancer, maternal [...] ormer smoker S he was born in [place]. Her mother is a nurse. The patient is disabled from multiple sclerosis. 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 Her father is a truck engine assembler. She is single with no children. Smoking: Patient smokes 10 cigarettes a day. * Medications: T aking Gabapentin 300 MG Capsule 1 capsule Orally 3 times a day , Taking Ibuprofen 400 MG Tablet TAKE 1 [...] 1 tablet Orally every 12 hrs , Medication List reviewed and reconciled with [...] * Provider: Deepa Henriquez MD Date: 0 04/24/2025 Generated for Printi ng/Farositag/eTransmitting on: 09/10/2024 11:00 PM EST History and [...]
--- OUTSIDE RECORDS SUMMARY | 2025-04-27 08:00 | XMS_ITS ---
Author Organization Jayden Henriquez III, MD Address [address] [place] [address] [address] [place] [address] Care Team Providers Care Manager Program Name Role Phone Dr. Jayden Henriquez III Primary Care Provider Amber MORFIN, Rosa M Unavailable Unavailabl e Allergies Allergen (clinical drug ingredient) Drug/Non Drug Allergy documented on EMR Reaction Allergy Type Onset Date Status sulfacetamide Sulfacetamide Unknown Drug Allergy Active morphine Morphine Sulfate Unknown Drug Allergy Active codeine Codeine Sulfate Unknown Drug Allergy A ctive REASON FOR VISIT Tysabri infusion, Recent upper endoscopy and colonoscopy, Multiple sclerosis, Depression, Insomnia,Lobular carcinoma of the right breast, Cervical radiculopathy, Hyperlipidemia, COPD Medications Medication SIG (Take, Route, Frequency, Duration) Notes Start Date End Date Status Citalopram Hydrobromide 40 MG TAKE 1 TABLET BY MOUTH EVERY DAY Active Anastrozole 1 MG TAKE 1 TABLET BY OSWALDO EVERY DAY Active Ondansetron 8 MG DISSOLVE 1 TABLET ON THE TONGUE EVERY 8 HOURS FOR 10 DAYS for nausea Orally shaunna 8 hours Active Acyclovir 400 MG TAKE 1 TABLET BY OSWALDO TH TWICE DAILY Active Cyclobenzaprine HCl 10 MG TAKE 1 TABLET BY MOUTH THREE TIMES DAILY FOR 10 DAYS NEEDED FOR MUSCLE SPASM Active Nicotine Step 1 21 MG/24HR 1 patch to sk in Transdermal Once a day 08/03/2023 Active Gabapentin 300 MG 1 capsule Orally 3 t imes a day Active Ibuprofen 400 MG TAKE 1 TABLET BY OSWALDO THREE TIMES DAILY WITH FOOD OR MILK FOR 14 DAYS if NEEDED Orally Three times a day Active dexAMETHasone 2 MG 1 tablet Orally ever y 12 hrs 09/01/2023 Active Omeprazole 20 MG 1 capsule 1 hour bef ore meal Orally Twice a day Active Triamcinolone Acetonide 0.1 % 1 application Externally Twice a day 10/14/2022 Active Tysabri 300 MG/15ML 15 ml Intravenous Active Meclizine HCl 25 MG 1 tablet as needed Orally every 8 hrs prn vertigo 04/21/2023 Active Social History Tobacco Use: Social History Observation Description Date Details (start date - stop date) Former Smoker NA - NA Sex Assigned At : Social History Observation Description Sex Assigned At Female Tobacco Control (Standard) Question Answer Notes Tobacco use: Former smoker Vital Signs Temperature 97.6 degrees Fahrenheit 04/27/20 25 Blood pressure systolic 120 mm Hg 04/27/20 25 Blood pressure diastolic 85 mm Hg 025 Heart Rate 98 /min 04/27/2025 Height 66 in 04/27/2025 Weight 146 lbs 04/27/2025 BMI 23.56 kg/m2 04/27/2025 Encounters Encounter Location Date Provider Diagnosis Jayden Henriquez III, MD [address] [place] [address] [place] [address] 04/27/2025 Jayden Henriquez Multiple sclerosis G 35 ; Former smoker Z87.891 ; Depression F32.9 ; Insomnia G47.00 ; Episodic tension-type headache, not intractable G44.219 ; Hyperlipidemia, unspecified hyperlipidemia type E78.5 ; COPD (chronic obstructive pulmonary disease) J44.9 ; Family history of dilated cardiomyopathy Z82.49 ; Invasive lobular carcinoma of right breast in female C50.911 and Cervical radiculopathy M54.12 Assessments Encounter Date Diagnosis (ICD Code) Assessment Notes Treat ment Notes Treatment Clinical Notes 04/27/2025 Multiple sclerosis (ICD-10 - G35) She has had no exacerbation of multiple sclerosis and is asymptomatic at this time.Her infusion of Tysabri was given without any Difficulty. 04/27/2025 Former smoker (ICD-1 0 - Z87.891) We made a plan to continue abstinence in times of stress or illness. 04/27/2025 Depression (ICD-10 - F32.9) She is being treated for this problem and seems to have recovered completely. She is compliant with all of her medications. 04/27/2025 Insomnia (ICD-10 - G47.00) I have recommended she use either an antihistamine or melatonin. She is no longer requiring prescription medication. 04/27/2025 Episodic tension-typ e headache, not intractable (ICD-10 - G44.219) She denies having any recent headaches lately. 04/27/2025 Hyperlipidemia, unspecified hyperlipidemia type (ICD-10 - E78.5) Comprehensive blood work was ordered today. 04/27/2025 COPD (chronic obstructive pulmonary disease) (ICD-10 - J44.9) On examination today her breath sounds were very diminished in all lung andrade, but there was no wheezing or rales, or rhonchi. She was moving air well at a rate of 14 breast per minute, without distress. 04/27/2025 Family history of dilated cardiomyopathy (ICD-10 - Z82.49) She will have an EKG and an echocardiogram. 04/27/2025 Invasive lobular carcinoma of right breast in female (ICD-10 - C50.911) She will continue on anastrozole. There was no sign of a new primary breast cancer or recurrence today. 04/27/2025 Cervical radiculopathy (ICD-10 - M54.12) She is beginning to respond to treatment with decreasing pain and more mobility. Her treatment will continue for another week. No change in her regimen was needed. Plan Of Treatment Medication Medication Name Sig Start Date Stop Date Notes Citalopram Hydrobromide 40 MG TAKE 1 TAB LET BY MOUTH EVERY DAY Anastrozole 1 MG TAKE 1 TABLET BY OSWALDO TH EVERY DAY Ondansetron 8 MG DISSOLVE 1 TABLET ON THE TONGUE EVERY 8 HOURS FOR 10 DAYS for nausea Orally shaunna 8 hours Acyclovir 400 MG TAKE 1 TABLET BY OSWALDO TH TWICE DAILY Cyclobenzaprine HCl 10 MG TAKE 1 TABLET BY MOUTH THREE TIMES DAILY FOR 10 DAYS NEEDED FOR MUSCLE SPASM Nicotine Step 1 21 MG/24HR 1 patch to sk in Transdermal Once a day 08/03/2023 Gabapentin 300 MG 1 capsule Orally 3 t imes a day Ibuprofen 400 MG TAKE 1 TABLET BY OSWALDO TH THREE TIMES DAILY WITH FOOD OR MILK FOR 14 DAYS if NEEDED Orally Three times a day dexAMETHasone 2 MG 1 tablet Orally every 12 hrs 09/01/2023 Omeprazole 20 MG 1 capsule 1 hour bef ore meal Orally Twice a day Triamcinolone Acetonide 0.1 % 1 applicat ion Externally Twice a day 10/14/2022 Tysabri 300 MG/15ML 15 ml Intravenous Meclizine HCl 25 MG 1 tablet as needed O rally every 8 hrs prn vertigo 04/21/2023 Next Appt Details Follow Up: 4 Weeks, Reason: Tysabri Infusion Provider Name:Jayden Perlane , 08/06/2025 09:00:00 AM, [address] [place] [address] [address], [place], [phone], Provider Name:Jayden Perlane , 09/11/2025 09:45:00 AM, [address] [place] [address] [address], [place], [phone], Procedure Notes * Category Sub-Category Detail Notes Chemotherapy Start and End Time: -, start, 1: 00 pm, end, 2:00 pm Site: -, right hand Consent: -, verbal consent wa s obtained prior to procedure Medications given: -, Tysabri 300 mg Monitored by: -, MANISH Hardwick port flush none route -, IV Progress Notes * Sun SPENCEB: 8 (54 yo F)Acc No.[id number]:04/27/2025 Patient: Salome RHODES Provider: Deepa Henriquez MD :1970 A ge:54 Y S ex:Female Date:04/27/2025 Address:[address] [place], [place] [id number] Subjective: * Chief Complaints: * T ysabri infusionRecent upper endoscopy and colonoscopyMultiple sclerosisDepressionInsomniaLobular carcinoma of the right breastCervical radiculopathyHyperlipidemiaCOPD * HPI: C OVID-19 Screening: She comes in today for her monthly infusion of Tysabri. She recently had an upper endoscopy failed to show pathology as well as a colonoscopy that showed a tubular adenoma of the rectum. She tolerated the procedure well. The multiple sclerosis is stable but she says she feels tired all of the time. She is going to see her neurologist in the near future. She is breathing room air comfortably. She no longer smokes cigarettes. Her neck pain is stable and unchanged.She conducting breast self-examination with negative results. Carcinoma the right breast remains in remission. Questions H ave you had any new onset fever, chills, cough, congestion, sore throat, shortness of breath, muscle aches? N o * ROS: G eneral/Constitutional: pain o nly normal aches and pains. C hills d enies.?Fatigue a dmits. F ever d enies. E NT: Decreased hearing d enies. R espiratory: Cough d enies. C ardiovascular: Chest pain with exertion d enies. D yspnea on exertion?with prolonged activity. S hortness of breath w ith exertion. G astrointestinal: Constipation o ccasional. D ecreased [...] enies. S ciatica d enies. W eakness t hat is generalized. S kin: Itching d enies. R christian d enies. S kin lesion(s)?denies. N eurologic: Difficulty speaking d enies. D izziness d enies.?Headache d enies. L ow back pain d enies. P sychiatric: Depressed mood w hich is mild. * Medical History: * Surgical History: H ysterectomy without oophorectomy [id number] laparotomy, [facility], Dr. 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 Her mother is a nurse. The patient is disabled from multiple sclerosis. 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 Her father is a light truck driver. She is single with no children. Smoking: Patient smokes 10 cigarettes a day. * Medications: T akingGabapentin 300 MG Capsule 1 capsule Orally 3 times a day Ibuprofen 400 MG Tablet TAKE 1 TABLET [...] Tablet 1 tablet Orally every 12 hrs Medication List reviewed and reconciled with the patientTaking Gabapentin 300 MG Capsule 1 capsule Orally 3 times a day Taking Ibuprofen 400 MG Tablet TAKE 1 [...] Tablet 1 tablet Orally every 12 hrs Medication List reviewed and reconciled with the patient * Allergies: M orphine SulfateCodeine SulfateSulfacetamideno[Allergies Verified] Objective: * Vitals: H t: 66, Wt: 146, BMI:23.56, BP: 120/85, HR: 98, Temp: 97.6, Ht-cm: 167.64, Wt-k.22. * P ast Orders: Lab:Pathology * Collection Date 04/18/2025 10/01/2021 09/30/2021 Collection Time 11:07 AM 10:40 AM 06:43 AM Order Date 04/18/2025 10/01/2021 09/30/2021 * Imaging:MR head/brain wo/w c on * Performed Date 02/18/2025 02/17/2024 02:39 PM 09:50 AM Order Date 02/18/2025 02/17/2024 * Imaging:MR cervical spine wo /w con * Performed Date 02/18/2025 02/17/2024 03:40 PM 09:50 AM Order Date 02/18/2025 02/17/2024 * Examination: G eneral Examination: GENERAL APPEARANCE: p leasant, well nourished, well developed, in no acute distress, calm and relaxed: woman. HEAD: a traumatic, normocephalic. EYES: e [...] normal, no s3, or vascular bruits. LUNGS: : diminished breath sounds throughout: no wheezes, rales, rhonchi: good air movement. BREASTS: no masses palpable bilaterally. ABDOMEN: b [...] was given without any Difficulty. 2 . F ormer smoker - Z87.891 N otes :We made a plan to continue abstinence in times of stress or illness. 3 . D epression - F32.9 N otes :She is being treated for this problem and seems to have recovered completely. She is compliant with all of her medications. 4 . I nsomnia - G47.00 N otes :I have recommended she use either an antihistamine or melatonin. She is no longer requiring prescription medication. 5 . E pisodic tension-type headache, not intractable - G44.219 ?Notes :She denies having any recent headaches lately. 6 . H yperlipidemia, unspecified hyperlipidemia type - E78.5 N otes :Comprehensive blood work was ordered today. 7 . C OPD (chronic obstructive pulmonary disease) - J44.9 N otes :On examination today her breath sounds were very diminished in all lung andrade, but there was no wheezing or rales, or rhonchi. She was moving air well at a rate of 14 breast per minute, without distress. 8 . F amily history of dilated cardiomyopathy - Z82.49 N otes :She will have an EKG and an echocardiogram. 9 . I nvasive lobular carcinoma of right breast in female - C50.911 N otes :She will continue on anastrozole. There was no sign of a new primary breast cancer or recurrence today. 1 0. C ervical radiculopathy - M54.12 N otes :She is beginning to respond to treatment with decreasing pain and more mobility. Her treatment will continue for another week. No change in her regimen was needed. Plan: * Treatment: * Procedures: C hemotherapy: Start and End Time: - , start, 1:00 pm, end, 2:00 pm. Site: - , right hand. Consent: - , verbal consent was obtained prior to procedure. Medications given: - , Tysabri 300 mg. Monitored by: - , MANISH Hardwick. port flush n one. route - , IV. * Procedure Codes: 9 6413 CHEMO, IV INFUSION, 1 [id number] NATALIZUMAB INJECTION * Preventive Medicine: Counseling: S moking/Tobacco Use Patient counseled on the dangers of tobacco use and urged to quit. 0 04/27/2025 COPD Care Plan: P atient Lifestyle Goals R elieve symptoms and improve quality of life, Reduce number of ED and hospitalizations, Be able to be more active with friends and family. T reatment Goals E xercise to help whole body, including lungs, Eat a nutritious diet and increase water consumption to 6-8 glasses a day. B arriers n o barriers. S elf-Managment Goals G et an air purifier for the rooms you are in the most, Eat a healthy diet. * Follow Up: 4 Weeks (Reason: Tysabri Infusion) * Images: * Sign off status: Completed true * Provider: Deepa Henriquez MD Date: 0 04/27/2025 Generated for Ashleigh yung/Dennis/Connorransmitting on: 09/10/2024 11:00 PM EST History and Physical Notes * HPI (History of Present Illness) Category Sub-Category Detail Notes COVID-19 Screening Questions Have you had any new onset fever, chills, cough, congestion, sore throat, shortness of breath, muscle aches?: No Examination Category Sub-Category Detail Notes General Examination GENERAL APPEARANCE: pleasant , well nourished, well developed, in no acute distress, calm and relaxed: woman HEAD: atraumatic, normocep halic EYES: eomi, perrla, anicte joanie, conjugate EARS: normal NOSE: septum intact NECK/THYROID: no jugular venous di stention, no carotid bruit, thyroid normal HEART: no clicks, gallops, murmurs, or rubs, regular rhythm, S1, S2 normal, no s3, or vascular bruits LUNGS: : diminished breath sounds throughout: no wheezes, rales, rhonchi: good air movement ABDOMEN: bowel sounds normal, [...]
--- OUTSIDE RECORDS SUMMARY | 2025-05-25 12:30 | XMS_ITS ---
Author Organization Jayden Henriquez III, MD Address [address] [place] [address] [address] [place] [address] Care Team Providers Care Cad Specialist Name Role Phone Dr. Jayden Henriquez III [...] Orally ever y 12 hrs 09/01/2023 Active Triamcinolone Acetonide 0.1 % 1 application Externally Twice a day 10/14/2022 Active Tysabri 300 MG/15ML 15 ml Intravenous Active Meclizine HCl 25 MG 1 tablet as needed Orally every 8 hrs prn vertigo 04/21/2023 Active Nicotine Step 1 21 MG/24HR 1 patch to sk in Transdermal Once a day 08/03/2023 Active Ondansetron 8 MG DISSOLVE 1 TABLET ON THE TONGUE EVERY 8 HOURS FOR 10 DAYS for nausea Orally shaunna 8 hours Active Acyclovir 400 MG TAKE 1 TABLET BY OSWALDO TH TWICE DAILY Active Citalopram Hydrobromide 40 MG TAKE 1 TABLET BY MOUTH EVERY DAY Active Anastrozole 1 MG TAKE 1 TABLET BY OSWALDO TH EVERY DAY Active Cyclobenzaprine HCl 10 MG TAKE 1 TABLET BY MOUTH THREE TIMES DAILY FOR 10 DAYS NEEDED FOR MUSCLE SPASM Active Ibuprofen 400 MG TAKE 1 TABLET BY OSWALDO TH THREE TIMES DAILY WITH FOOD OR MILK FOR 14 DAYS if NEEDED Orally Three times a day Active Omeprazole 20 MG 1 capsule 1 hour bef ore meal Orally Twice a day Active Gabapentin 300 MG 1 capsule Orally 3 t imes a day Active Social History Tobacco Use: Social History Observation Description Date Details (start date - stop date) Former Smoker NA - NA Sex Assigned At : Social History Observation Description Sex Assigned At Female Tobacco Control (Standard) Question Answer Notes Tobacco use: Former smoker Encounters Encounter Location Date Provider Diagnosis Jayden Henriquez III, MD [address] [place] [address] [address] [place] [phone] 05/25/2025 Jayden Henriquez Multiple sclerosis G35 Assessments Encounter Date Diagnosis (ICD Code) Assessment Notes Treatment Notes Treatment Clinical Notes 05/25/2025 Multiple sclerosis (ICD-10 - G35) Plan Of Treatment Medication Medication Name Sig Start Date Stop Date Notes dexAMETHasone 2 MG 1 tablet Orally every 12 hrs 09/01/2023 Triamcinolone Acetonide 0.1 % 1 applicat ion Externally Twice a day 10/14/2022 Tysabri 300 MG/15ML 15 ml Intravenous Meclizine HCl 25 MG 1 tablet as needed O rally every 8 hrs prn vertigo 04/21/2023 Nicotine Step 1 21 MG/24HR 1 patch to sk in Transdermal Once a day 08/03/2023 Ondansetron 8 MG DISSOLVE 1 TABLET ON THE TONGUE EVERY 8 HOURS FOR 10 DAYS for nausea Orally shaunna 8 hours Acyclovir 400 MG TAKE 1 TABLET BY OSWALDO TH TWICE DAILY Citalopram Hydrobromide 40 MG TAKE 1 TAB LET BY MOUTH EVERY DAY Anastrozole 1 MG TAKE 1 TABLET BY OSWALDO TH EVERY DAY Cyclobenzaprine HCl 10 MG TAKE 1 TABLET BY MOUTH THREE TIMES DAILY FOR 10 DAYS NEEDED FOR MUSCLE SPASM Ibuprofen 400 MG TAKE 1 TABLET BY OSWALDO TH THREE TIMES DAILY WITH FOOD OR MILK FOR 14 DAYS if NEEDED Orally Three times a day Omeprazole 20 MG 1 capsule 1 hour bef ore meal Orally Twice a day Gabapentin 300 MG 1 capsule Orally 3 t imes a day Next Appt Details Provider Name:Jayden Henriquez , 08/06/2025 09:00:00 AM, [address] [place] [address] [address], [place], [phone], Provider Name:Jayden Davison Martinez , 09/11/2025 09:45:00 AM, [address] [place] [address] [address], [place], [phone], Procedure Notes * Category Sub-Category Detail Notes Chemotherapy Start and End Time: - Site: - Consent: - Medications given: - Monitored by: - route - Progress Notes * Sun SPENCEB: 8 (55 yo F)Acc No.[id number]:05/25/2025 Patient: Salome RHODES Provider: Deepa Henriquez MD :1970 A ge:54 Y S ex:Female Date:05/25/2025 Address:[address] [place] [address] [address] [id number] Subjective: * Chief Complaints: * 1 . [...] dependence, Degenerative disc disease cervical spine, 2019 [id number] stage II invasive breast cancer left, estrogen and progesterone receptor positive, HER-2 negative, node-negative, Menarche age 11, , Breast cancer - occurred approximately 4-5 years ago, Multiple sclerosis - ongoing. * Surgical History: H ysterectomy without oophorectomy 1991, [id number] , laparotomy, [facility] [place] Dr. Mercedes for blockage 2013, partial thyroidectomy [...] but had breast cancer at 24 and MAIL CARRIER TECHNICIAN cancer, maternal aunt 60 of cancer, [...] ormer smoker S he was born in [place]. Her mother is a nurse. The patient is disabled from multiple sclerosis. 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 She is single with no children. Smoking: [...] Pending * Provider: Deepa Henriquez MD Date: Generated for Kelvini ng/Fabriziog/eTransmitting on: 09/10/2024 11:01 PM EST History and Physical Notes * [...]
--- OUTSIDE RECORDS SUMMARY | 2025-06-11 04:00 | XMS_ITS ---
Author Organization Jayden Henriquez III, MD Address [address] [place] [address] [address] [place] [address] Care Team Providers Care Corporate Executive Chef Name Role Phone Dr. Jayden Henriquez III Primary Care Provider Amber MORFIN, Rosa M Unavailable Unavailabl e Allergies Allergen (clinical drug ingredient) Drug/Non Drug Allergy documented on EMR Reaction Allergy Type Onset Date Status sulfacetamide Sulfacetamide Unknown Drug Allergy Active morphine Morphine Sulfate Unknown Drug Allergy Active codeine Codeine Sulfate Unknown Drug Allergy A ctive REASON FOR VISIT Tysabri infusion, Right breast cancer, Multiple sclerosis, Depression, Cervical radicuulopathy, Insomnia Medications Medication SIG (Take, Route, Frequency, Duration) Notes Start Date End Date Status Triamcinolone Acetonide 0.1 % 1 application Externally Twice a day 10/14/2022 Active Tysabri 300 MG/15ML 15 ml Intravenous Active dexAMETHasone 2 MG 1 tablet Orally ever y 12 hrs 09/01/2023 Active Meclizine HCl 25 MG 1 tablet as needed Orally every 8 hrs prn vertigo 04/21/2023 Active Nicotine Step 1 21 MG/24HR 1 patch to sk in Transdermal Once a day 08/03/2023 Active Cyclobenzaprine HCl 10 MG TAKE 1 TABLET BY MOUTH THREE TIMES DAILY FOR 10 DAYS NEEDED FOR MUSCLE SPASM Active Anastrozole 1 MG TAKE 1 TABLET BY OSWALDO TH EVERY DAY Active Ondansetron 8 MG DISSOLVE 1 TABLET ON THE TONGUE EVERY 8 HOURS FOR 10 DAYS for nausea Orally shaunna 8 hours Active Omeprazole 20 MG 1 capsule 1 hour bef ore meal Orally Twice a day Active Citalopram Hydrobromide 40 MG TAKE 1 TABLET BY MOUTH EVERY DAY Active Gabapentin 300 MG 1 capsule Orally 3 t imes a day Active Ibuprofen 400 MG TAKE 1 TABLET BY OSWALDO TH THREE TIMES DAILY WITH FOOD OR MILK FOR 14 DAYS if NEEDED Orally Three times a day Active Acyclovir 400 MG TAKE 1 TABLET BY OSWALDO TH TWICE DAILY Active Social History Tobacco Use: Social History Observation Description Date Details (start date - stop date) Former Smoker NA - NA Sex Assigned At : Social History Observation Description Sex Assigned At Female Tobacco Control (Standard) Question Answer Notes Tobacco use: Former smoker Problems Problem Type SNOMED Code ICD Code Onset Dates Problem Status W/U Status Risk Notes Problem [id number] Tobacco dependence (F17.200) Active confirmed I have strongly recommended smoking cessation. We have discussed several strategies for accomplishing this. Vital Signs Temperature 97.9 degrees Fahrenheit 06/11/20 25 Blood pressure systolic 129 mm Hg 06/11/20 25 Blood pressure diastolic 78 mm Hg 025 Heart Rate 103 /min 06/11/2025 Height 66 in 06/11/2025 Weight 148 lbs 06/11/2025 BMI 23.89 kg/m2 06/11/2025 Encounters Encounter Location Date Provider Diagnosis Jayden Henriquez III, MD [address] [place] [address] [place] [address] 06/11/2025 Jayden Henriquez Tobacco dependence F17.200 ; Multiple sclerosis G35 ; Depression F32.9 ; Genital herpes A60.00 ; Insomnia G47.00 ; Episodic tension-type headache, not intractable G44.219 ; Family history of dilated cardiomyopathy Z82.49 and COPD (chronic obstructive pulmonary disease) J44.9 Assessments Encounter Date Diagnosis (ICD Code) Assessment Notes Treat ment Notes Treatment Clinical Notes 06/11/2025 Tobacco dependence (ICD-10 - F17.200) I have strongly recommended smoking cessation. We have discussed several strategies for accomplishing this. 06/11/2025 Multiple sclerosis (ICD-10 - G35) She has had no exacerbation of multiple sclerosis and is asymptomatic at this time.Her infusion of Tysabri was given without any Difficulty. 06/11/2025 Depression (ICD-10 - F32.9) She is being treated for this problem and seems to have recovered completely. She is compliant with all of her medications. 06/11/2025 Genital herpes (ICD-10 - A60.00) This problem is stable and no change in her regimen is necessary. She has had no flareups lately. She reports episodes 3 times a year. Her valacyclovir a prescription is current. 06/11/2025 Insomnia (ICD-10 - G47.00) I have recommended she use either an antihistamine or melatonin. She is no longer requiring prescription medication. 06/11/2025 Episodic tension-typ e headache, not intractable (ICD-10 - G44.219) She denies having any recent headaches lately. 06/11/2025 Family history of dilated cardiomyopathy (ICD-10 - Z82.49) She will have an EKG and an echocardiogram. 06/11/2025 COPD (chronic obstructive pulmonary disease) (ICD-10 - J44.9) On examination today her breath sounds were very diminished in all lung andrade, but there was no wheezing or rales, or rhonchi. She was moving air well at a rate of 14 breast per minute, without distress. Plan Of Treatment Medication Medication Name Sig Start Date Stop Date Notes Triamcinolone Acetonide 0.1 % 1 applicat ion Externally Twice a day 10/14/2022 Tysabri 300 MG/15ML 15 ml Intravenous dexAMETHasone 2 MG 1 tablet Orally every 12 hrs 09/01/2023 Meclizine HCl 25 MG 1 tablet as needed O rally every 8 hrs prn vertigo 04/21/2023 Nicotine Step 1 21 MG/24HR 1 patch to sk in Transdermal Once a day 08/03/2023 Cyclobenzaprine HCl 10 MG TAKE 1 TABLET BY MOUTH THREE TIMES DAILY FOR 10 DAYS NEEDED FOR MUSCLE SPASM Anastrozole 1 MG TAKE 1 TABLET BY OSWALDO TH EVERY DAY Ondansetron 8 MG DISSOLVE 1 TABLET ON THE TONGUE EVERY 8 HOURS FOR 10 DAYS for nausea Orally shaunna 8 hours Omeprazole 20 MG 1 capsule 1 hour bef ore meal Orally Twice a day Citalopram Hydrobromide 40 MG TAKE 1 TAB LET BY MOUTH EVERY DAY Gabapentin 300 MG 1 capsule Orally 3 t imes a day Ibuprofen 400 MG TAKE 1 TABLET BY OSWALDO TH THREE TIMES DAILY WITH FOOD OR MILK FOR 14 DAYS if NEEDED Orally Three times a day Acyclovir 400 MG TAKE 1 TABLET BY OSWALDO TH TWICE DAILY Next Appt Details Follow Up: 4 Weeks, Reason: ov Provider Name:Jayden Henriquez , 08/06/2025 09:00:00 AM, [address] [facility] [address], [place], [address], Provider Name:Jayden Henriquez , 09/11/2025 09:45:00 AM, [address] [place] [address] [address], [place], [address], Progress Notes * Sun SPENCEB: 8 (54 yo F)Acc No.[id number]:06/11/2025 Patient: Salome RHODES Provider: Deepa Henriquez MD :1970 A ge:54 Y S ex:Female Date:06/11/2025 Address:[address] [place], [place] [id number] Subjective: * Chief Complaints: * T ysabri infusionRight breast cancerMultiple sclerosisDepressionCervical radicuulopathyInsomnia * HPI: C OVID-19 Screening: She returns for ongoing medical management. She has been conducting breast self-examination of the right breast with no new findings. She has an appointment with medical oncology tomorrow where she will have a careful breast examination. She is up-to-date with mammography. She is up-to-date with her oncoology medications. She was treated today with a 1 hour infusion of Tysabri monoclonal antibody therapy for chronic relapsing multiple sclerosis. The multiple sclerosis remains in remission. Questions H ave you had any new onset fever, chills, cough, congestion, sore throat, shortness of breath, muscle aches? N o * ROS: G eneral/Constitutional: pain o nly normal aches and pains. C hills d enies.?Fatigue a dmits. F ever d enies. E NT: Decreased hearing d enies. R espiratory: Cough n on-productive. C ardiovascular: Chest pain with exertion d enies. D yspnea on exertion?with prolonged activity. S hortness of breath w ith exertion. G astrointestinal: Constipation d enies. D ecreased [...] * Surgical History: H ysterectomy without oophorectomy [id number] laparotomy, [facility], Dr. 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 Her mother is a nurse. The patient is disabled from multiple sclerosis. 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 She is single with no children. Smoking: [...] DAYS for nausea Orally shaunna 8 hours Cyclobenzaprine HCl 10 MG Tablet TAKE 1 [...] Tablet 1 tablet Orally every 12 hrs Acyclovir 400 MG Tablet TAKE 1 TABLET BY MOUTH TWICE DAILY Medication List reviewed and reconciled with the [...] for nausea Orally shaunna 8 hours Taking Cyclobenzaprine HCl 10 MG Tablet TAKE [...] 1 tablet Orally every 12 hrs Taking Acyclovir 400 MG Tablet TAKE 1 TABLET BY MOUTH TWICE DAILY Medication List reviewed and reconciled with the patient * Allergies: M orphine SulfateCodeine SulfateSulfacetamideno[Allergies Verified] Objective: * Vitals: H t: 66, Wt: 148, BMI:23.89, BP: 129/78, HR: 103, Temp: 97.9, Ht-cm: 167.64, Wt- k.13. * Examination: G eneral Examination: GENERAL APPEARANCE: [...] wheezes, rales, rhonchi: good air movement. BREASTS: : Not examined, Sees medical oncology tomorrow. ABDOMEN: b owel sounds normal, no ascites, no organomegaly, no mass. RECTAL EXAM: n ot examined. MUSCULOSKELETAL: e xtremities unremarkable, no clubbing, cyanosis or edema. PERIPHERAL PULSES: n ormal. NEUROLOGIC: a lert and oriented, cranial nerves 2-12 grossly intact, deep tendon reflexes 2+ symmetrical, motor strength normal upper and lower extremities, sensory exam intact. PSYCH: a lert, oriented: mood depressed. ? Assessment: * Assessment: 1. T obacco dependence - F17.200 (Primary) N otes :I have strongly recommended smoking cessation. We have discussed several strategies for accomplishing this. 2 . M ultiple sclerosis - G35 N otes :She has had no exacerbation of multiple sclerosis and is asymptomatic at this time.Her infusion of Tysabri was given without any Difficulty. 3 . D epression - F32.9 N otes :She is being treated for this problem and seems to have recovered completely. She is compliant with all of her medications. 4 . G enital herpes - A60.00 N otes :This problem is stable and no change in her regimen is necessary. She has had no flareups lately. She reports episodes 3 times a year. Her valacyclovir a prescription is current. 5 . I nsomnia - G47.00 N otes :I have recommended she use either an antihistamine or melatonin. She is no longer requiring prescription medication. 6 . E pisodic tension-type headache, not intractable - G44.219 ?Notes :She denies having any recent headaches lately. 7 . F amily history of dilated cardiomyopathy - Z82.49 N otes :She will have an EKG and an echocardiogram. 8 . C OPD (chronic obstructive pulmonary disease) - J44.9 N otes :On examination today her breath sounds were very diminished in all lung andrade, but there was no wheezing or rales, or rhonchi. She was moving air well at a rate of 14 breast per minute, without distress. Plan: * Treatment: * Procedure Codes: * Preventive Medicine: Counseling: S moking/Tobacco Use Patient counseled on the dangers of tobacco use and urged to quit. 1 Patient Lifestyle Goals P atient wants to quit Treatment Goals S et a quit date, Cut down by 1 cigarette a week Barriers S tress, Social smoker Self-Management Plan M annamarie a plan to cut down number of cigarettes over time and set a date to work towards quitting COPD Care Plan: P atient Lifestyle Goals B e able to be more active with friends and family, Reduce number of ED and hospitalizations, Relieve symptoms and improve quality of life. T reatment Goals Q uit Smoking. B arriers n o barriers. S elf-Managment Goals M annamarie a plan for quitting smoking. * Follow Up: 4 Weeks (Reason: ov) * Images: * Sign off status: Completed true * Provider: Deepa Henriquez MD Date: 1 Generated for Kelvini aga/Dennis/eTransmitting on: 09/10/2024 10:59 PM EST History and Physical Notes * [...] lesion s, anicteric PERIPHERAL PULSES: normal BREASTS: : Not examined, Sees medical oncology tomorrow MUSCULOSKELETAL: extremities unremark able, no clubbing, cyanosis or edema LYMPH NODES: no enlarged lymph no ilana,spleen normal RECTAL EXAM: not examined PSYCH: alert, oriented: moo d depressed ORAL CAVITY: normal, unremarkable
--- OUTSIDE RECORDS SUMMARY | 2025-07-09 04:00 | XMS_ITS ---
Author Organization Jayden Henriquez III, MD Address [address] [place] [address] [address] [place] [address] Care Team Providers Care Decorator Street And Building Name Role Phone Dr. Jayden Henriquez III Primary Care Provider Amber MORFIN, Rosa M Unavailable Unavailabl e Allergies Allergen (clinical drug ingredient) Drug/Non Drug Allergy documented on EMR Reaction Allergy Type Onset Date Status sulfacetamide Sulfacetamide Unknown Drug Allergy Active morphine Morphine Sulfate Unknown Drug Allergy Active codeine Codeine Sulfate Unknown Drug Allergy A ctive REASON FOR VISIT Tysabri infusion, Breast cancer, Multiple sclerosis, Depression, Cervical radiculopathy, COPD, Hyperlipidemia, Tobacco dependence Medications Medication SIG (Take, Route, Frequency, Duration) Notes Start Date End Date Status Nicotine Step 1 21 MG/24HR 1 patch to sk in Transdermal Once a day 08/03/2023 Active Meclizine HCl 25 MG 1 tablet as needed Orally every 8 hrs prn vertigo 04/21/2023 Active Tysabri 300 MG/15ML 15 ml Intravenous Active Triamcinolone Acetonide 0.1 % 1 application Externally Twice a day 10/14/2022 Active dexAMETHasone 2 MG 1 tablet Orally ever y 12 hrs 09/01/2023 Active Omeprazole 20 MG 1 capsule 1 hour bef ore meal Orally Twice a day Active Cyclobenzaprine HCl 10 MG TAKE 1 [...] 1 TABLET BY MOUTH EVERY DAY Active Acyclovir 400 MG TAKE 1 TABLET BY OSWALDO TH TWICE DAILY Active Ibuprofen 400 MG TAKE 1 TABLET BY OSWALDO TH THREE TIMES DAILY WITH FOOD OR MILK FOR 14 DAYS if NEEDED Orally Three times a day Active Gabapentin 300 MG 1 capsule Orally 3 t imes a day Active Social History Tobacco Use: Social History Observation Description Date Details (start date - stop date) Former Smoker NA - NA Sex Assigned At : Social History Observation Description Sex Assigned At Female Tobacco Control (Standard) Question Answer Notes Tobacco use: Former smoker Vital Signs Temperature 98.3 degrees Fahrenheit 07/09/20 25 Blood pressure systolic 120 mm Hg 07/09/20 25 Blood pressure diastolic 100 mm Hg 025 Heart Rate 107 /min 07/09/2025 Height 66 in 07/09/2025 Weight 154 lbs 07/09/2025 BMI 24.85 kg/m2 07/09/2025 Encounters Encounter Location Date Provider Diagnosis Jayden Henriquez III, MD [address] [place] [address] [place] [address] 07/09/2025 Jayden Henriquze Multiple sclerosis G 35 ; Tobacco dependence F17.200 ; Cervical radiculopathy M54.12 and Invasive lobular carcinoma of right breast in female C50.911 Assessments Encounter Date Diagnosis (ICD Code) Assessment Notes Treat ment Notes Treatment Clinical Notes 07/09/2025 Multiple sclerosis (ICD-10 - G35) She has had no exacerbation of multiple sclerosis and is asymptomatic at this time.Her infusion of Tysabri was given without any Difficulty. 07/09/2025 Tobacco dependence (ICD-10 - F17.200) I have strongly recommended smoking cessation. We have discussed several strategies for accomplishing this. 07/09/2025 Cervical radiculopathy (ICD-10 - M54.12) She is beginning to respond to treatment with decreasing pain and more mobility. Her treatment will continue for another week. No change in her regimen was needed. 07/09/2025 Invasive lobular carcinoma of right breast in female (ICD-10 - C50.911) She will continue on anastrozole. There was no sign of a new primary breast cancer or recurrence today. She will continue on zoledronic acid calcium and vitamin D. She will continue to do breast self-examination. Plan Of Treatment Medication Medication Name Sig Start Date Stop Date Notes Nicotine Step 1 21 MG/24HR 1 patch to sk in Transdermal Once a day 08/03/2023 Meclizine HCl 25 MG 1 tablet as needed O rally every 8 hrs prn vertigo 04/21/2023 Tysabri 300 MG/15ML 15 ml Intravenous Triamcinolone Acetonide 0.1 % 1 applicat ion Externally Twice a day 10/14/2022 dexAMETHasone 2 MG 1 tablet Orally every 12 hrs 09/01/2023 Omeprazole 20 MG 1 capsule 1 hour bef ore meal Orally Twice a day Cyclobenzaprine HCl 10 MG TAKE 1 TABLET BY MOUTH THREE TIMES DAILY FOR 10 DAYS NEEDED FOR MUSCLE SPASM Ondansetron 8 MG DISSOLVE 1 TABLET ON THE TONGUE EVERY 8 HOURS FOR 10 DAYS for nausea Orally shaunna 8 hours Anastrozole 1 MG TAKE 1 TABLET BY OSWALDO TH EVERY DAY Citalopram Hydrobromide 40 MG TAKE 1 TAB LET BY MOUTH EVERY DAY Acyclovir 400 MG TAKE 1 TABLET BY OSWALDO TH TWICE DAILY Ibuprofen 400 MG TAKE 1 TABLET BY OSWALDO TH THREE TIMES DAILY WITH FOOD OR MILK FOR 14 DAYS if NEEDED Orally Three times a day Gabapentin 300 MG 1 capsule Orally 3 t imes a day Next Appt Details Follow Up: 4 Weeks, Reason: ov Provider Name:Jayden Henriquez , 08/06/2025 09:00:00 AM, [address] [place] [address] [address] [place], [address], Provider Name:Jayden Henriquez , 09/11/2025 09:45:00 AM, [address] [place] [address] [place], [address], Procedure Notes * Category Sub-Category Detail Notes Chemotherapy Start and End Time: start, 9:00 am, end, 10:00 am Site: left hand Consent: verbal consent was o btained prior to procedure Medications given: Tysabri 300 mg Monitored by: MANISH Hardwick port flush none route IV Progress Notes * Sun SPENCEB: 8 (55 yo F)Acc No.[id number]:07/09/2025 Patient: Salome RHODES Provider: Deepa Henriquez MD :1970 A ge:55 Y S ex:Female Date:07/09/2025 Address:[address] [place] [address] [address], [id number] Subjective: * Chief Complaints: * T ysabri infusionBreast cancerMultiple sclerosisDepressionCervical radiculopathyCOPDHyperlipidemiaTobacco dependence * HPI: v : S he returns for general medical management and a scheduled visit as well as an infusion of Tysabri monoclonal antibody therapy for chronic relapsing multiple sclerosis. She saw her medical oncologist, Dr. Mercedes, last week. No changes in her regimen were made. She takes anastrozole 1 mg daily for 5 years and every 6 months has an infusion of zoledronic acid. She has an appointment with neurology next week. She says her legs feel heavy and this will be evaluated in neurology. She has no findings on breast self-examination. Medical oncology examined her breast with negative findings last week. She has had no chest pain shortness of breath or bleeding. Her infusion was conducted today without incident. * ROS: G eneral/Constitutional: pain o nly [...] enies. S ciatica d enies. W eakness B oth legs feel heavy. S kin: Itching d enies. R christian d enies. S kin lesion(s)?denies. N eurologic: Difficulty speaking d enies. D izziness d enies.?Headache d enies. L ow back pain d enies. P sychiatric: Depressed mood w hich is mild. * Medical History: * Surgical History: H ysterectomy without oophorectomy [id number] laparotomy, [facility], Dr. 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 Her mother is a nurse. The patient is disabled from multiple sclerosis. 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 She is single with no children. Smoking: Patient smokes 10 cigarettes a day. * Medications: T akingAcyclovir 400 MG Tablet TAKE 1 TABLET BY MOUTH TWICE DAILY Gabapentin 300 MG Capsule 1 capsule Orally [...] List reviewed and reconciled with the patientTaking Acyclovir 400 MG Tablet TAKE 1 TABLET BY MOUTH TWICE DAILY Taking Gabapentin 300 MG Capsule 1 capsule [...] Objective: * Vitals: H t: 66, Wt: 154, BMI:24.85, BP: 120/100, HR: 107, Temp: 98.3, Ht-cm: 167.64, Wt- k.85. * P ast Orders: Lab:Pathology * Collection Date 04/18/2025 10/01/2021 09/30/2021 Collection Time 11:07 AM 10:40 AM 06:43 AM Order Date 04/18/2025 10/01/2021 09/30/2021 * Examination: G eneral Examination: GENERAL APPEARANCE: [...] bruits. LUNGS: : diminished breath sounds throughout: rhonchi on the RIGHT: rhonchi on the LEFT. BREASTS: no masses palpable bilaterally. ABDOMEN: b [...] mood depressed. ? Assessment: * Assessment: 1. M ultiple sclerosis - G35 (Primary) N otes :She has had no exacerbation of multiple sclerosis and is asymptomatic at this time.Her infusion of Tysabri was given without any Difficulty. 2 . T obacco dependence - F17.200 N otes :I have strongly recommended smoking cessation. We have discussed several strategies for accomplishing this. 3 . C ervical radiculopathy - M54.12 N otes :She is beginning to respond to treatment with decreasing pain and more mobility. Her treatment will continue for another week. No change in her regimen was needed. 4 . I nvasive lobular carcinoma of right breast in female - C50.911 N otes :She will continue on anastrozole. There was no sign of a new primary breast cancer or recurrence today. She will continue on zoledronic acid calcium and vitamin D. She will continue to do breast self-examination. Plan: * Treatment: * Procedures: C hemotherapy: Start and End Time: s tart, 9:00 am, end, 10:00 am. Site: [facility]. Consent: v erbal consent was obtained prior to procedure.? Medications given: T ysabri 300 mg. Monitored by: MANISH Guzman. port flush n one. route I V. * Procedure Codes: 9 6413 CHEMO, IV INFUSION, 1 [id number] NATALIZUMAB INJECTION * Preventive Medicine: COPD Care Plan: P atient Lifestyle Goals [...] true * Provider: Deepa Henriquez MD Date: 09/08/2024 Generated for Ashleigh yung/Dennis/eTransmitting on: 09/10/2024 11:00 PM EST History and [...] bruits LUNGS: : diminished breath sounds throughout: rhonchi on the RIGHT: rhonchi on the LEFT ABDOMEN: bowel sounds normal, no ascites, no [...]
--- NOTE | 2025-07-11 11:52 | MHC.OFFVIS ---
Intake Visit Reasons: 6m MS Allergies codeine (CODEINE) Allergy (Unknown, Verified 07/11/25 12:01) UNK morphine (MORPHINE) Allergy (Unknown, Verified 07/11/25 12:01) HIVES Sulfa (Sulfonamide Antibiotics) (SULFA (SULFONAMIDE ANTIBIOTICS)) Allergy (Unknown, Verified 07/11/25 12:01) ITCH Medication List - Last Reconciled 07/11/25 by Marcella Padron, NITESH acyclovir 1 tab PO BID anastrozole 1 tab PO DAILY bisacodyl (Dulcolax (bisacodyl)) 20 mg (4 x 5 mg) PO ONCE 1 day citalopram 1 tab PO DAILY diazepam 5 mg PO DAILY PRN 30 days docusate sodium 100 mg PO BEDTIME natalizumab (Tysabri) 300 mg (15 mL) IV Q4W omeprazole 1 cap PO BID ondansetron 1 tab PO Q8H PRN polyethylene glycol 3350 (Miralax) 238 grams PO ONCE psyllium husk (Metamucil) 0.52 grams PO BID tramadol 50 mg PO DAILY PRN 30 days HPI Comments Details: Had about 2 month period of weakness which she describes as a generalized weakness-type feeling all over body where she feels like she cannot do anything and wants to stay in bed, low energy. No specific trigger identified, no increased stressed or illness. Feeling better the last few days. Doing well with Tysabri, last dose was on 07/09/2025. Numbness to hands and feet was about the same, although legs feel heavier. Right foot occasionally drags when she walks. Ongoing chronic back pain. No significant neck pain. Vertigo has been okay. Has had few minor falls without injury, last was about 3 weeks ago. Sleep was okay. Mood was stable. Had a period of increased weakness in spring 2024. She did not do PT. No change in back pain (even after ablation), worse with activity. Still has some pain to right collar bone area. Right hand does not do what she wants it to do and weaker. Bladder control was okay. She has 2+ years of LBP, seen at [facility]. R breast lumpectomy for breast cancer in 09/2019 s/p RT. Balance slightly off since 08/19/2018. Hx of RRMS diagnosed around 2003, treated with Tysabri infusions for the last 20 years. MRI shows extensive bilateral plaques and Batres's fingers but no significant atrophy. No enhancing lesions. No visual problems. She apparently has abnormalities in her spinal cord also. She was initially treated with infusions of Zenepac to which she had an allergic reaction. Occasional dragging of foot. [facility] Medical History (Updated 07/11/25 @ 11:56 by Macrella Padron CNP) GERD (gastroesophageal reflux disease) Breast cancer Degenerative disc disease, cervical Genital herpes Anxiety Depression Multiple sclerosis Surgical History Hx of colonoscopy Status post right breast lumpectomy Hx of exploratory laparotomy History of left knee surgery H/O partial thyroidectomy H/O: hysterectomy Social History Patient Tobacco Use Status: Current everyday Tobacco user Cigarette Packs Per Day: 0.5 Cigarettes Per Day: 10.0 Years Smoked: 30 Second Hand Smoke Exposure: No Substance Use Type: Marijuana Review of Systems Const Denies chills, Denies daytime sleepiness, Reports difficulty sleeping, Reports fatigue, Denies fever(s), Denies frequent falls, Denies headache(s), Denies increased appetite, Denies poor appetite, Reports snoring, Denies weakness, Denies weight gain and Denies weight loss Eyes Denies loss of vision ENT Denies vertigo, Denies dizziness, Denies headache(s) and Reports neck pain Card Denies chest pain at rest, Denies chest pain with activity, Denies syncope, Denies leg edema, Denies palpitations, Denies dyspnea and Denies dyspnea on exertion Resp Denies cough, Denies dyspnea, Denies dyspnea on exertion and Reports snoring GI Denies abdominal pain, Denies constipation, Denies heartburn, Denies diarrhea and Denies nausea Denies urinary frequency, Denies urinary incontinence and Denies urinary urgency Musc Reports abnormal gait (balance difficulty), Reports back pain, Reports myalgias, Reports arthralgias, Reports neck pain, Reports numbness and Reports tingling Neuro Reports abnormal gait (balance difficulty), Denies vertigo, Denies dizziness, Denies syncope, Denies frequent falls, Denies headache(s), Denies lack of coordination, Denies loss of vision, Reports memory loss, Reports numbness, Denies Other visual disturbances, Denies restless legs, Denies seizure-like activity, Reports tingling, Denies paresthesias, Denies tremor(s) and Denies weakness Psych Denies anxiety, Denies depression, Denies auditory hallucinations, Reports memory loss and Denies visual hallucinations Endo Reports fatigue and Denies palpitations Physical Exam Const Other: General Appearance:? normal, in no acute distress. Heart:? S1, S2 normal, no murmurs. Lungs:? clear anteriorly and posteriorly. Musculoskeletal:? normal. Extremities:? no edema. Psych:? alert, oriented, cognitive function intact, cooperative with exam. Neuro Other: Abnormal Neurological Findings:?Absent right ankle reflex. Slight RLE hyperreflexia. Slight Truncal ataxia on tandem walking. Mild generalized tremulousness including extended UE. 5-/5 R deltoid, 4+/5 R finger spread, 5-/5 R thumb opposition. 5-/5 R quads. Mental Status: alert and oriented X 3. Normal attention, orientation, memory, and affect. Cranial Nerves: Pupils are equal, round, and reactive to light. External ocular muscles are intact. Visual andrade are full, no ptosis. Face is symmetrical, no facial weakness or droop. Facial sensations are normal. Tongue protrudes in midline. Palate elevates symmetrically. Shoulder shrugging is normal Motor Examination: As above. Sensory Exam: Normal light touch, temperature, pinprick, vibration, and joint-position sensations. Rhomberg sign is absent. Coordination: No ataxia. No titubation. Gait Exam: Within normal limits. Cerebellar Signs: [id number] is okay. Extrapyramidal System: Mild generalized tremulousness including extended UE. No rigidity with normal facial expressions. No bradykinesia. No bradyphrenia. Normal arm swing and posture. No propulsion or retropulsion. Speech: Normal. Results Reviewed Results Reviewed: [address] [address] Magnetic Resonance Report Signed Patient: Salome Spence MR#: [id number] : 1970 Acct:[id number] Age/Sex: 54 / F ADM Date: 02/18/25 Loc: HO.MRI Attending Dr: Marcella Padron CNP Ordering Physician: Marcella Padron CNP Date of Service: 02/18/25 Procedure(s): MR head/brain wo/w con Accession Number(s): [id number] cc: Jayden Henriquez MD; Marcella Padron CNP~ EXAMINATION: MR BRAIN WITHOUT AND WITH CONTRAST CLINICAL INFORMATION: MS COMPARISON: February 17, 2024. TECHNIQUE: Multiplanar, multisequence MRI of the brain was obtained before and after the intravenous administration of 6.5 mL gadolinium based contrast without reported immediate complications.. FINDINGS: No restricted diffusion. No abnormal enhancement in the intra-axial or the extra-axial compartment of the cranium. Bilateral, multifocal patchy and perpendicularly oriented to the corpus callosum deep periventricular white matter hyperintense T2 FLAIR signal involving centrum semiovale and kidd radiata. Patchy hyperintense T2 FLAIR signal within the thanh. No acute intracranial hemorrhage, mass effect, midline shift, hydrocephalus or herniation. Cheung-white matter differentiation is normal. Flow-void signal within the main cerebral vessels is normal. Sellar/suprasellar region demonstrated no signal abnormality or enhancing lesion. There is thinning of the corpus callosum with hyperintense T2 FLAIR signal affecting mostly the body. MR/MR head/brain wo/w con IMPRESSION: Demyelinating plaques involving mostly supratentorial compartment and corpus callosum with worsening/atrophy of the posterior body of the corpus callosum since prior exam. Electronically signed by: Hunter Burrows MD 02/19/2025 10:04 AM EDT [place] [address] Magnetic Resonance Report Signed Patient: Salome Spence MR#: [id number] : 1970 Acct:[id number] Age/Sex: 54 / F ADM Date: 02/18/25 Loc: HO.MRI Attending Dr: Marcella Padron CNP Ordering Physician: Marcella Padron CNP Date of Service: 02/18/25 Procedure(s): MR cervical spine wo/w con Accession Number(s): [id number] cc: Jayden Henirquez MD; Marcella Padron CNP~ EXAMINATION: MR CERVICAL SPINE WITHOUT AND WITH CONTRAST CLINICAL INFORMATION: MS COMPARISON: February 17, 2024. TECHNIQUE: MRI of the cervical spine was obtained using routine sequences with and without contrast. Intravenous contrast: Gadolinium based contrast 6.5 mL. No reported immediate complications. FINDINGS: Limited by patient's motion artifact. Patchy hyperintense STIR cor signal abnormality without enhancement throughout the cervical spine and the upper thoracic spine more pronounced at C6-7 and C3-4 levels. There is no cord expansion. Craniocervical junction is intact. No bone marrow STIR signal abnormality. Bone marrow inhomogeneity. Multilevel marginal osteophyte formation and disc desiccation more pronounced at C6-7, C5-6 and to a lesser extent C3-4 C4-5 and C7-T1 levels. Grade 1 anterolisthesis C3-4, C5-6 levels. Grade 1 retrolisthesis C6-7. Reverse curvature apex at C5-6. Bone marrow inhomogeneity. C2-3: No cord compression. No neuroforamina stenosis. No herniated disc. C3-4: Broad-based disc osteophyte compresses formation abutting the cord without flattening. Bilateral neuroforamina stenosis on a degenerative basis. C4-5: Broad-based disc osteophyte compresses formation. No cord compression. No neuroforamina stenosis on a degenerative basis. C5-6: Broad-based disc osteophyte consummation resulting in ventral deformity of the thecal sac. No cord compression. Bilateral neuroforamina stenosis right greater than the left side. C6-7: Broad-based disc osteophyte consummation resulting in ventral deformity of the thecal sac. Bilateral neuroforamina stenosis more pronounced on the left side. C7-T1: No disc herniation. No gross neuroforamina stenosis. No prevertebral compartment hematoma, mass or fluid collections. Flow-void signal within the main vessels is normal. Right vertebral artery is dominant. Nonspecific prominent cervical lymph nodes, bilaterally. MR/MR cervical spine wo/w con IMPRESSION: Nonenhancing demyelinating plaques throughout the cervical and upper thoracic spinal cord more conspicuous at C6-7 and C3-4 levels. Multilevel cervical spondylosis C3 C7 resulting in central spinal canal stenosis and bilateral neuroforamina stenosis more pronounced at C3-4, C4-5, C5-6 and C6-7 levels. Electronically signed by: Hunter Burrows MD 02/19/2025 10:14 AM EDT Dictated By: Hunter Conner MD Signed By: <Electronically signed by Hunter Delaney MD in OV> 02/19/25 1014 04/19/23 MRI brain without hima: chronic white matter disease in a pattern consistent with the patient's clinical history of multiple sclerosis. There are a few additional white matter lesions since the MRI of 2019. 02/17/2024 MRI brain W&W/O: No evidence of disease progression. No focal parenchymal enhancement to indicate active inflammation. Moderate diffuse brain parenchymal volume loss and moderate disease burden. 02/17/2024 MRI CSpine W&WO: 1. Grossly stable pattern of demyelinating disease throughout the cervical and imaged thoracic cord without definite new lesions identified within limitations of motion artifact. No enhancement to suggest active demyelination. 2. Cervical spondylosis has slightly progressed since prior. Increased moderate C6-C7 disc height loss with new enhancing type I Modic endplate changes at this level and to a lesser extent on the right at C3-C4. Severe hypertrophic right C3-C4 facet arthropathy with new enhancing marrow edema and periarticular inflammatory change/synovitis, presumably degenerative/inflammatory. Possibly increased moderate to severe right-sided neural foraminal narrowing at C3-C4 and C5-C6. Stable mild C6-C7 spinal canal stenosis. Additional multilevel neural foraminal narrowing is unchanged. Assessment & Plan Assessment & Plan (1) Relapsing remitting multiple sclerosis: Code(s): G35.A - Relapsing-remitting multiple sclerosis Category: Medical Plan: MRI brain and C-spine results reviewed. Continue Tysabri 300mg/15mL IV infusion every 4 weeks. Continue tramadol 50mg 1 tablet daily as needed for pain #30 for 30 days. Continue diazepam 5mg 1 tablet daily as needed for anxiety #30 for 30 days. Reviewed labs ordered. She was not interested in PT at this time. Follow up in 6 months or sooner as needed. Orders: Orders JCV Ab w/Indx rflx Inhibition Today G35.A - Relapsing-remitting multiple sclerosis Coding Level of Care Code Est Pt Level 4 (60552) Diagnoses Relapsing remitting multiple sclerosis G35.A
--- OUTSIDE RECORDS SUMMARY | 2025-07-11 23:02 | XMS_ITS | Patient Health Record ---
Author Organization Jayden Henriquez III, MD Address [address] [place] [address] [place] [address] Care Team Providers Care Materials Tech Name Role Phone Dr. Jayden Henriquez III Primary Care Provider [phone] Amber MORFIN, Rosa M Unavailable Unavailabl e Allergies Allergen (clinical drug ingredient) Drug/Non Drug Allergy documented on EMR Reaction Allergy Type Onset Date Status sulfacetamide Sulfacetamide Unknown Drug Allergy Active morphine Morphine Sulfate Unknown Drug Allergy Active codeine Codeine Sulfate Unknown Drug Allergy A ctive Results Component Value Reference Range Notes Lipid Panel Reviewed date:12/26/2024 05:35:11 AM Interpretation: Performing Lab:[facility], [address] [place] [phone] Notes/Report: Triglycerides 194 <150 mg/dL Desirable Triglyceride: less than 150 mg/dL Borderline High Triglyceride 150-199 mg/dL High Triglyceride: 200-499 mg/dL Very High Triglyceride: greater than or equal to 5OO mg/dL Cholesterol 279 <200 mg/dL Desirable Cholesterol: less than 200 mg/dL Borderline High Cholesterol: 200-239 mg/dL High Cholesterol: greater than 239 mg/dL LDL Cholesterol Calculated 184 <100 mg/dL Desirable LDL: less than 100 mg/dL Near Optimal/Above Optimal LDL: 110-129 mg/dL Borderline High LDL: 130-159 mg/dL High LDL: 160-189 mg/dL Very High LDL: greater than or equal to 190 mg/dL HDL Cholesterol 57 >40 mg/dL Desirable HDL: greater than 40 mg/dL Note: This HDL assay may give artificially low results in patients with liver disease. Free T4 (Free Thyroxine) Reviewed date:12/26/2024 05:35:11 AM Interpretation: Performing Lab:[facility], [address] [place] [phone] Notes/Report: Free T4 (Free Thyroxine) 0.82 0.71-1.85 ng/dL Complete Blood Count Auto Di ff Reviewed date:12/26/2024 05:35:11 AM Interpretation: Performing Lab:[facility], [address] [place] [phone] Notes/Report: White Blood Count 12.8 4.8-10.8 X10*3/uL Red Blood Count 4.60 4.20-5.50 X10*6/uL Hemoglobin 13.6 12.0-16.0 g/dl Hematocrit 40.7 37.0-47.0 % Mean Corpuscular Volume 88.5 80.0-98.0 fL Mean Corpuscular Hemoglobin 29.6 27.0-33.0 pg Mean Corpuscular HGB Conc 33.4 31.0-35.0 g/dl Red Cell Distribution Width 14.1 11.0-16.0 % Platelet Count 308 160-400 X10*3/uL Mean Platelet Volume 9.6 9.4-12.3 fL Neutrophils Percent Auto 37.1 45-73 % Imm Gran Pct Auto 0.4 0.0-0.4 % Lymphocytes Percent Auto 52.0 20-40 % Monocytes Percent Auto 6.6 2-11 % Eosinophils Percent Auto 3.4 0-4 % Basophils Percent Auto 0.5 0-2 % NRBC Pct Auto 0.7 0.0-0.2 /100WBC Neutrophils Absolute Auto 4.8 2.0-8.3 x10*3/uL Imm Gran Abs Auto 0.05 0.00-0.03 X10*3/uL Lymphocytes Absolute Auto 6.7 1.2-4.9 X10*3/uL Monocytes Absolute Auto 0.8 0.1-1.2 X10*3/uL Eosinophils Absolute Auto 0.4 0.0-0.4 X10*3/uL Basophils Absolute Auto 0.1 0.0-0.2 X10*3/uL NRBC Abs Auto 0.090 0.0-0.012 X10*3/uL White Blood Count 12.8 4.8-10.8 X10*3/uL Red Blood Count 4.60 4.20-5.50 X10*6/uL Hemoglobin 13.6 12.0-16.0 g/dl Hematocrit 40.7 37.0-47.0 % Mean Corpuscular Volume 88.5 80.0-98.0 fL Mean Corpuscular Hemoglobin 29.6 27.0-33.0 pg Mean Corpuscular HGB Conc 33.4 31.0-35.0 g/dl Red Cell Distribution Width 14.1 11.0-16.0 % Platelet Count 308 160-400 X10*3/uL Mean Platelet Volume 9.6 9.4-12.3 fL Neutrophils Percent Auto 37.1 45-73 % Imm Gran Pct Auto 0.4 0.0-0.4 % Lymphocytes Percent Auto 52.0 20-40 % Monocytes Percent Auto 6.6 2-11 % Eosinophils Percent Auto 3.4 0-4 % Basophils Percent Auto 0.5 0-2 % NRBC Pct Auto 0.7 0.0-0.2 /100WBC Neutrophils Absolute Auto 4.8 2.0-8.3 x10*3/uL Imm Gran Abs Auto 0.05 0.00-0.03 X10*3/uL Lymphocytes Absolute Auto 6.7 1.2-4.9 X10*3/uL Monocytes Absolute Auto 0.8 0.1-1.2 X10*3/uL Eosinophils Absolute Auto 0.4 0.0-0.4 X10*3/uL Basophils Absolute Auto 0.1 0.0-0.2 X10*3/uL NRBC Abs Auto 0.090 0.0-0.012 X10*3/uL MATTHEW ECTED REPORT MATTHEW ECTED REPORT Comprehensive [place]. Panel Fa st Reviewed date:12/26/2024 05:35:11 AM Interpretation: Performing Lab:[facility], [address] [place] [phone] Notes/Report: Sodium 139 135-145 mmol/L Potassium 3.8 3.3-5.1 mmol/L Chloride 107 96-108 mmol/L Carbon Dioxide 27 22-29 mmol/L Anion Gap 12 12-20 Blood Urea Nitrogen 22 9-16 mg/dL Creatinine 0.73 0.5-1.4 mg/dL Estimated Glomerular Filt Rate > 60 Chronic Kidney Disease: Estimated GFR < 60 mL/min/1.73m2 Severe Kidney Disease: Estimated GFR < 15 mL/min/1.73m2 Glucose Fasting 101 60-99 mg/dL A fasting glucose from 100-125 mg/dl is considered impaired (pre-diabetes). Calcium 8.9 8.4-10.2 mg/dL Bilirubin Total 0.2 0.0-1.0 mg/dL Aspartate Amino Transferase 23 5-31 U/L Alanine Aminotransferase 24 0-31 U/L Total Protein 7.2 6.5-8.0 g/dL Albumin Level 4.4 3.5-5.0 g/dL Alkaline Phosphatase 63 39-117 U/L Thyroid Stimulating Hormone Reviewed date:12/26/2024 05:35:11 AM Interpretation: Performing Lab:[facility], [address] [place] [phone] Notes/Report: Thyroid Stimulating Hormone 0.34 0.32-4.0 uIU/mL TSH 3rd Generation ([facility]) SLIDE REVIEW Reviewed date:12/26/2024 05:35:11 AM Interpretation: Performing Lab:[address] [phone] Notes/Report: SLIDE REVIEW VERIFIED XR chest 2V Reviewed date:12/26/2024 05:35:11 AM Interpretation: Performing Lab: Notes/Report: [address] [address] XRay Report Signed Patient: Salome Spence MR#: [id number] 63 : 1970 Acct:[id number] Age/Sex: 54 / F ADM Date: 12/25/24 Loc: NACHO Attending Dr: Jayden Henriquez MD Ordering Physician: Jayden Henriquez MD Date of Service: 12/25/24 Procedure(s): XR chest 2V Accession Number(s): [id number] cc: Jayden Henriquez MD CLINICAL HISTORY: CHRONIC OBSTRUCTIVE PULMONARY DISEASE 2 view chest x-ray Comparison: None Findings: No consolidation or effusion. Heart size is normal. No acute fracture. IMPRESSION: 1. No acute findings. This document has been electronically signed by: Genia Amaya MD on 12/25/2024 22:59:11 Dictated By: Genia Amaya MD Signed By: <Electronically signed by Genia Amaya MD in OV> 12/25/242299 DD/ 58 TD/TT: 12/25/242258 [employer]: [place] [address] XRay Report Signed Patient: Bebeto Spence MR#: [id number] 63 : 1970 Acct:[id number] Age/Sex: 54 / F ADM Date: 12/25/24 Loc: HO.XRAY Attending Dr: Jayden Henriquez MD Ordering Physician: Jayden Henriquez MD Date of Service: 12/25/24 Procedure(s): XR chest 2V Accession Number(s): [id number] cc: Jayden Henriquez MD CLINICAL HISTORY: CH RONIC OBSTRUCTIVE PULMONARY DISEASE 2 view chest x-ray Comparison: None Findings: No consolidation or effusion. Heart size is normal. No acute fracture. IMPRESSION: 1. No acute findings. This document has be en electronically signed by: Genia Amaya MD on 12/25/2024 22:59:11 Dictated By: Genia Amaya MD Signed By: <Cindy morris signed by Genia Amaya MD in OV> 12/25/242299 DD/ 58 TD/TT: 12/25/242258 [employer]: head/brain wo/w con Reviewed date:02/21/2025 03:53:37 PM Interpretation: Performing Lab: Notes/Report: [address] [address] Magnetic Resonance Report Signed Patient: Salome Spence MR#: [id number] 63 : 1970 Acct:[id number] Age/Sex: 54 / F ADM Date: 02/18/25 Loc: HO.MRI Attending Dr: Marcella Padron CNP Ordering Physician: Marcella Padron CNP Date of Service: 02/18/25 Procedure(s): MR head/brain wo/w con Accession Number(s): [id number] cc: Jayden Henriquez MD; Marcella Padron CNP EXAMINATION: MR BRAIN WITHOUT AND WITH CONTRAST CLINICAL INFORMATION: MS COMPARISON: February 17, 2024. TECHNIQUE: Multiplanar, multisequence MRI of the brain was obtained before and after the intravenous administration of 6.5 mL gadolinium based contrast without reported immediate complications.. FINDINGS: No restricted diffusion. No abnormal enhancement in the intra-axial or the extra-axial compartment of the cranium. Bilateral, multifocal patchy and perpendicularly oriented to the corpus callosum deep periventricular white matter hyperintense T2 FLAIR signal involving centrum semiovale and kidd radiata. Patchy hyperintense T2 FLAIR signal within the thanh. No acute intracranial hemorrhage, mass effect, midline shift, hydrocephalus or herniation. Cheung-white matter differentiation is normal. Flow-void signal within the main cerebral vessels is normal. Sellar/suprasellar region demonstrated no signal abnormality or enhancing lesion. There is thinning of the corpus callosum with hyperintense T2 FLAIR signal affecting mostly the body. MR/MR head/brain wo/w con IMPRESSION: Demyelinating plaques involving mostly supratentorial compartment and corpus callosum with worsening/atrophy of the posterior body of the corpus callosum since prior exam. Electronically signed by: Hunter Burrows MD 02/19/2025 10:04 AM EDT Dictated By: Hunter Conner MD Signed By: <Electronically signed by Hunter Delaney MD in OV> 02/19/25 1004 DD/ 1439 TD/TT: 02/18/25 1629 [employer]: [address] [address] Magnetic Resonance Report Signed Patient: Bebeto Spence MR#: [id number] 63 : 1970 Acct:[id number] Age/Sex: 54 / F ADM Date: 02/18/25 Loc: HO.MRI Attending Dr: Sebastian Padron CNP Ordering Physician: Marcella Padron CNP Date of Service: 02/18/25 Procedure(s): MR head/brain wo/w con Accession Number(s): [id number] cc: Jayden Henriquez MD; Marcella Padron CNP EXAMINATION: MR BRAIN WITHOUT AND WITH CONTRAST CLINICAL INFORMATION: MS COMPARISON: February 17, 2024. TECHNIQUE: Multiplanar, multise quence MRI of the brain was obtained before and after the intravenou s administration of 6.5 mL gadolinium based contrast without rep orted immediate complications.. FINDINGS: No restricted diffusion. No abnormal enhancem ent in the intra-axial or the extra-axial compartment of the cranium. Bilateral, multifoca l patchy and perpendicularly oriented to the corpus callosum deep periventricular white matter hyperintense T2 FLAIR signal involving centrum semiovale and kidd radiata. Patchy hyperintense T2 FLAIR signal within the thanh. No acute intracrania l hemorrhage, mass effect, midline shift, hydrocephalus or herniation. Cheung-white matter differentiation is normal. Flow-void signal wit hin the main cerebral vessels is normal. Sellar/suprasellar r egion demonstrated no signal abnormality or enhancing lesion. There is thinning of the corpus callosum with hyperintense T2 FLAIR signal affecting mos tly the body. M R/MR head/brain wo/w con IMPRESSION: Demyelinating plaque s involving mostly supratentorial compartment and corpus callosum with worsening/atrophy of the posterior body of the corpus callosum sinc e prior exam. Electronically lucía d by: Hunter Burrows MD 02/19/2025 10:04 AM EDT Dictated By: Hunter Zhong MD Signed By: <Cindy ically signed by Hunter Delaney MD in OV> 02/19/25 1004 DD/ 1439 TD/TT: 02/18/25 1623 [employer]: MR cervical spine wo/w con Reviewed date:02/21/2025 03:53:37 PM Interpretation: Performing Lab: Notes/Report: [address] [address] Magnetic Resonance Report Signed Patient: Salome Spence MR#: [id number] 63 : 1970 Acct:[id number] Age/Sex: 54 / F ADM Date: 02/18/25 Loc: HO.MRI Attending Dr: Marcella Padron CNP Ordering Physician: Marcella Padron CNP Date of Service: 02/18/25 Procedure(s): MR cervical spine wo/w con Accession Number(s): [id number] cc: Jayden Henriquez MD; Marcella Padron CNP EXAMINATION: MR CERVICAL SPINE WITHOUT AND WITH CONTRAST CLINICAL INFORMATION: MS COMPARISON: February 17, 2024. TECHNIQUE: MRI of the cervical spine was obtained using routine sequences with and without contrast. Intravenous contrast: Gadolinium based contrast 6.5 mL. No reported immediate complications. FINDINGS: Limited by patient's motion artifact. Patchy hyperintense STIR cor signal abnormality without enhancement throughout the cervical spine and the upper thoracic spine more pronounced at C6-7 and C3-4 levels. There is no cord expansion. Craniocervical junction is intact. No bone marrow STIR signal abnormality. Bone marrow inhomogeneity. Multilevel marginal osteophyte formation and disc desiccation more pronounced at C6-7, C5-6 and to a lesser extent C3-4 C4-5 and C7-T1 levels. Grade 1 anterolisthesis C3-4, C5-6 levels. Grade 1 retrolisthesis C6-7. Reverse curvature apex at C5-6. Bone marrow inhomogeneity. C2-3: No cord compression. No neuroforamina stenosis. No herniated disc. C3-4: Broad-based disc osteophyte compresses formation abutting the cord without flattening. Bilateral neuroforamina stenosis on a degenerative basis. C4-5: Broad-based disc osteophyte compresses formation. No cord compression. No neuroforamina stenosis on a degenerative basis. C5-6: Broad-based disc osteophyte consummation resulting in ventral deformity of the thecal sac. No cord compression. Bilateral neuroforamina stenosis right greater than the left side. C6-7: Broad-based disc osteophyte consummation resulting in ventral deformity of the thecal sac. Bilateral neuroforamina stenosis more pronounced on the left side. C7-T1: No disc herniation. No gross neuroforamina stenosis. No prevertebral compartment hematoma, mass or fluid collections. Flow-void signal within the main vessels is normal. Right vertebral artery is dominant. Nonspecific prominent cervical lymph nodes, bilaterally. MR/MR cervical spine wo/w con IMPRESSION: Nonenhancing demyelinating plaques throughout the cervical and upper thoracic spinal cord more conspicuous at C6-7 and C3-4 levels. Multilevel cervical spondylosis C3 C7 resulting in central spinal canal stenosis and bilateral neuroforamina stenosis more pronounced at C3-4, C4-5, C5-6 and C6-7 levels. Electronically signed by: Hunter Burrows MD 02/19/2025 10:14 AM EDT RP Dictated By: Hunter Conner MD Signed By: <Electronically signed by Hunter Delaney MD in OV> 02/19/25 1014 DD/ 1540 TD/TT: 02/18/25 1624 [employer]: [place] [address] Magnetic Resonance Report Signed Patient: Bebeto Spence MR#: [id number] 63 : 1970 Acct:[id number] Age/Sex: 54 / F ADM Date: 02/18/25 Loc: HO.MRI Attending Dr: Sebastian Padron CNP Ordering Physician: Marcella Padron CNP Date of Service: 02/18/25 Procedure(s): MR cer vical spine wo/w con Accession Number(s): [id number] cc: Jayden Henriquez MD; Marcella Padron CNP EXAMINATION: MR CERVICAL SPINE WI THOUT AND WITH CONTRAST CLINICAL INFORMATION: MS COMPARISON: February 17, 2024. TECHNIQUE: MRI of the cervical spine was obtained using routine sequences with and without contrast. Intravenous contrast: Gadolinium based contrast 6.5 mL. No reported imme diate complications. FINDINGS: Limited by patient's motion artifact. Patchy hyperintense STIR cor signal abnormality without enhancement throughout the cervi iris spine and the upper thoracic spine more pronounced at C6-7 a nd C3-4 levels. There is no cord expansion. Craniocervical junct ion is intact. No bone marrow STIR signal abnormality. Bone marrow inhomogeneity. Multilevel marginal osteophyte formation and disc desiccation more pronounced at C6-7, C5-6 and to a lesser extent C3-4 C4-5 and C7-T1 levels. Grade 1 anterolisthe sis C3-4, C5-6 levels. Grade 1 retrolisthes is C6-7. Reverse curvature ap ex at C5-6. Bone marrow inhomogeneity. C2-3: No cord compression. No neuroforamina stenosis. No herniated disc. C3-4: Broad-based disc osteophyte compresses formation abutting the cord without flattening. Bilateral neuroforamina stenosis on a degenerative basis. C4-5: Broad-based disc osteophyte compresses formation. No cord compression. No neuroforamina clay nosis on a degenerative basis. C5-6: Broad-based disc osteophyte consummation resulting in ventral deformity of the thecal sac. N o cord compression. Bilateral neuroforamina stenosis right great er than the left side. C6-7: Broad-based disc osteophyte consummation resulting in ventral deformity of the thecal sac. Bilateral neuroforamina stenosis more pronounced on the left side. C7-T1: No disc herniation. No gross neuroforamina stenosis. No prevertebral compartment hematoma, mass or fluid collections. Flow-void signal wit hin the main vessels is normal. Right vertebral artery is dominant. Nonspecific prominent cervical lymph nodes, bilaterally. M R/MR cervical spine wo/w con IMPRESSION: Nonenhancing demyeli nating plaques throughout the cervical and upper thoracic spinal cord more conspicuous at C6-7 and C3-4 levels. Multilevel cervical spondylosis C3 C7 resulting in central spinal canal stenosis and bilater al neuroforamina stenosis more pronounced at C3-4, C4-5, C5-6 and C6-7 levels. Electronically lucía d by: Hunter Burrows MD 02/19/2025 10:14 AM EDT Dictated By: Hunter Gomez MD Signed By: <Electron ically signed by Hunter Delaney MD in OV> 02/19/25 1014 DD/ 1540 TD/TT: 02/18/25 1624 [employer]: Pathology Reviewed date:04/20/2025 02:54:33 PM Interpretation: Performing Lab:[facility], [address] [place] [address] Notes/Report: ------ Name: Salome Spence Age/Sex: 54/F : 1970 Unit#: [id number] Attend Dr: Lashae Adrian MD Re04/18/25 Status : [facility] Disch: ------ SPEC : [id number] REC -1236 STATUS: SHANTECandice REALHanna NUM: [id number] ROSI: 04/18/25-[address] [facility] [address]: Lashae Adrian MD ENTERED: 04/18/25-12 44 SP TYPE: Surgical OTHR DR: Jayden Henriquez MD ORDERED: HE Stain/18 , Gross Micro L4/7, IHC, Special st. 2/3, H. pylori, AB/PAS/3 Diagnosis A. Duodenum, biopsy : Duodenal mucosa within normal limits. B. Stomach, biopsy: Oxyntic mucosa within normal limits; no Helicobacter organisms seen. C. EG junction, biopsy: - Cardiac-type mucos a with mild chronic inactive inflammation; no intestinal metaplasia seen. - Squamous epitheliu m within normal limits. D. Esophagus, distal , biopsy: Squamous epithelium within normal limits; no inflammation seen. E. Colon, transverse , polypectomy: Tubular adenoma; negative for high-grade dysplasia or carcinoma. F. Colon, sigmoid, polypectomies: - Tubular adenoma; negative for high-grade dysplasia or carcinoma. - Hyperplastic mucos al polyp. G. Colon, ascending, polypectomy: Fragments of sessile serrated lesion/polyp; negative for cytologic dysplasia. Clinical History Pre-Op Dx: Screening Post-Op Dx: Gastriti s, duodenitis, bile acid reflux, hiatal hernia, colon polyps, internal hemorrhoids Microscopic Description A-G. Microscopic sec tions examined. No metaplastic changes are seen, supported by AB/PAS stains (A, B and C); no Helicobacter organisms are seen, supported by H. pylori immunostain (B). Material Received A. Duodenum biopsies B. Stomach biopsies C. EG junction biopsies D. Distal esophagus biopsies E. Transverse colon polyp CONTINUED ON NEXT PAGE ------ Name: Salome Spence Age/Sex: 54/F : 1970 Unit#: [id number] Attend Dr: Lashae Adrian MD Re04/18/25 Status : [facility] Disch: ------ SPEC : [id number] RECD : 04/18/25-123 STATUS: HAO NORIEGA NUM: [id number] ROSI: 04/18/25-[address] [facility] [address]: Lashae Adrian MD ENTERED: 04/18/25-12 44 SP TYPE: Surgical OTHR DR: Jayden Henriquez MD ORDERED: HE Stain/18 , Gross Micro L4/7, IHC, Special st. 2/3, H. pylori, AB/PAS/3 Material Received (Continued) F. Sigmoid colon polyps G. Ascending colon polyps Gross Description Received in 7 parts. A. Received in forma linda labeled ?duodenum biopsies? are 3 fragments of pink white soft tissue measuring 0.2 -0.3 cm in greatest dimension which are wrapped in lens paper and entirely submitted f or microscopic examination, 3 pieces in cassette A. B. Received in forma linda labeled ?stomach biopsies? are 4 fragments of mckeon-white soft tissue measuring 0.2-0.3 cm in greatest dimension which are wrapped in lens paper and entirely submitted for micros copic examination, 4 pieces in cassette B. C. Received in forma linda labeled ?GE junction biopsies?(sic) is a fragment of mckeon-white soft tissue measuring 0.4 cm in greatest dimension which is wrapped in lens paper and entirely submitted for micros copic examination, 1 piece in cassette C. D. Received in forma linda labeled ?distal esophagus biopsies? are 3 fragments of translucent, white soft tissue measuring 0.2-0.3 cm in greatest dimension which are wrapped in lens paper and entirely submitt ed for microscopic examination, 3 pieces in cassette D. E. Received in forma linda labeled ?transverse colon polyp? is a fragment of mckeon-white soft tissue measuring 0.6 cm in greatest dimension which is wrapped in lens paper and entirely submitted for micros copic examination, 1 piece in cassette E. F. Received in forma linda labeled ?sigmoid colon polyps? are 2 polypoid portions of red-pink soft tissue measurin g 1.0 and 1.2 cm in greatest dimension. The outer surface is are smooth and glistening. The underside of each is mckeon-white and unremarkable. The underside of each is inked blue. Each pieces bisected. The the specimen is wrapped in lens paper and entirely submitted f or microscopic examination, 4 pieces in cassette F. G. Received in forma linda labeled ?ascending colon polyps? are fragments of pink white soft tissue measuring 0.2 -0.4 cm in greatest dimension, forming an aggregate measuring 1.4 x 1.1 x 0.2 cm greatest dimension which is wrapped in lens paper and entirely submitted for microscopic examinat ion, multiple pieces in cassette G. ([facility]) Special studies orde red and performed: Immunostain for H. pylori on B; AB/PAS stains on A, B and C CONTINUED ON NEXT PAGE ------ Name: Salome Spence Age/Sex: 54/F : 1970 Unit#: [id number] Attend Dr: Lashae Adrian MD Re04/18/25 Status : [facility] Disch: ------ SPEC : [id number] RECD : 04/18/25-1236 STATUS: HAO REALHanna NUM: [id number] ROSI: 04/18/25-[address] [facility] [address]: Lashae Adrian MD ENTERED: 04/18/25-12 44 SP TYPE: Surgical OTHR DR: Jayden Henriquez MD ORDERED: HE Stain/18 , Gross Micro L4/7, IHC, Special st. 2/3, H. pylori, AB/PAS/3 IHC S/NG Disclaimer NOTE: Unless otherwi se stated, all tissue is formalin-fixed and paraffin-embedded. Some or all of the immunohistochemical tests reported herein may have been developed and their performance characteristics determined by [facility]. They have not been cleared or appr donald by the U.S. Food and Drug Administration (FDA). However, the FDA has determined that such clearance or approval is not necessary. This laboratory is certified under the Clinical Laboratory Improvement Amendments of 1988 (CLIA) as qualified to perform high comp lexity clinical laboratory testing. Copies To: Jayden Henriquez MD [address] [facility] [address] [place] [address] Lashae Adrian MD [facility] [address] [facility] [place] [address] ------ Signed (signature on file) Rome Rocha MD 04/19/25 7035 ------ END OF REPORT Reason For Referral Reason family history of co muriel cancer 6 month stomach bloating and pain Last colonoscopy with your office 06/20/2020 Diagnosis 1 Abdominal bloating ( R14.0) Diagnosis 2 Gastric pain (R10.9) Referral Organization Jayden Henriquez III, MD Referring Provider First Name Jayden Referring Provider Last Name Martinez Referring Provider Speciality Internal M edicine Referred Organization [facility] Marcus rodriguez Referred Provider Snyderkrish Velazquez [facility] er, Gastroenterology Referred Address [address] [place] [address],[place], [id number], Referred Provider Specialty Gastroentero logy General Notes Yamel Chaidez CMA 11/20 01:36:41 PM >ref/progress note faxed to Kaylynn Weaver Suzanne CMA 11/28/2024 09:59:20 AM >called Der[facility] Pascual spoke to Erika she stated she tried to call pt and sent pt a letter to call office for appt . I called patient now encouraged her to call Derrick pascual at [phone] option 2 and make an appt, KaylynnYamel JEFF 11/28/2024 03:03:29 PM >I called pt who stated she has tried to call and had to leave two message for a return call. I called Snyder Sedrick asked for a soon appt but was [...] Duration) Notes Start Date End Date Status Omeprazole 20 MG 1 capsule 1 hour [...] TABLET BY OSWALDO TH TWICE DAILY Active Nicotine Step 1 21 MG/24HR 1 [...] Orally ever y 12 hrs 09/01/2023 Active Immunizations Vaccine Route Administration Date Status [...] Problem Status W/U Status Risk Notes Problem 9921463 Former smoker (Z87.891) Active confirmed We made a plan to continue abstinence in times of stress or illness. Problem 44595212 Depression (F32.9) Active confirmed She is being treated for this problem and seems to have recovered completely. She is compliant with all of her medications. Problem 49707891 Multiple sclerosis (G35) Active confirmed She has had no exacerbation of multiple sclerosis and is asymptomatic at this time.Her infusion of Tysabri was given without any Difficulty. Problem 322528548 Episodic tension-type headache, not intractable (G44.219) Active confirmed She denies having any recent headaches lately. Problem 25516397 Tobacco dependence (F17.200) Active confirmed I have strongly recommended smoking cessation. We have discussed several strategies for accomplishing this. Problem COPD - Chronic obstructive pulmonary disease (10643441) COPD (chronic obstructive pulmonary disease) (J44.9) Active confirmed On examination today her breath sounds were very diminished in all lung andrade, but there was no wheezing or rales, or rhonchi. She was moving air well at a rate of 14 breast per minute, without distress. Problem 06807946 Cervical radiculopathy (M54.12) Active confirmed She is beginning to respond to treatment with decreasing pain and more mobility. Her treatment will continue for another week. No change in her regimen was needed. Problem 431523410 Insomnia (G47.00) Active confirmed I have recommended she use either an antihistamine or melatonin. She is no longer requiring prescription medication. Problem 12106009 Genital herpes (A60.00) Active confirmed This problem is stable and no change in her regimen is necessary. She has had no flareups lately. She reports episodes 3 times a year. Her valacyclovir a prescription is current. Problem 92124832 Hyperlipidemia, unspecified hyperlipidemia type (E78.5) Active confirmed Comprehensive blood work was ordered today. Problem Cholelithiasis AND cholecystitis without obstruction (disorder) (97369645) Calculus of gallbladder with cholecystitis without biliary obstruction, unspecified cholecystitis acuity (K80.10) Active confirmed Problem [id number] Invasive lobular carcinoma of right breast in female (C50.911) Active confirmed She will continue on anastrozole. There was no sign of a new primary breast cancer or recurrence today. She will continue on zoledronic acid calcium and vitamin D. She will continue to do breast self-examinati on. Problem 947230038 Family history of dilated cardiomyopathy (Z82.49) Active confirmed She will have an EKG and an echocardiogram . Vital Signs Heart Rate 107 /min 07/09/2025 Temperature 98.3 degrees Fahrenheit 07/09/2025 Blood pressure diastolic 100 mm Hg 07/09/2025 Height 66 in 07/09/2025 Blood pressure systolic 120 mm Hg 07/09/2025 Weight 154 lbs 07/09/2025 BMI 24.85 kg/m2 07/09/2025 Encounters Encounter Location Date Provider Diagnosis Jayden Henriquez III, MD [address] [place] [address] [place] [address] 09/05/2024 Jayden Henriquez Depression F32.9 ; Invasive lobular carcinoma of right breast in female C50.911 ; Insomnia G47.00 ; Episodic tension-type headache, not intractable G44.219 ; Cervical radiculopathy M54.12 ; Former smoker Z87.891 and Multiple sclerosis G35 Jayden Henriquez III, MD [address] [place] [address] [place] [address] 10/04/2024 Jayden Henriquez Multiple sclerosis G 35 ; Tobacco dependence F17.200 ; Cervical radiculopathy M54.12 and Depression F32.9 Jayden Henriquez III, MD [address] [place] [address] [place] [address] 11/13/2024 Jayden Henriquez Multiple sclerosis G 35 ; Episodic tension-type headache, not intractable G44.219 ; Acute non-recurrent maxillary sinusitis J01.00 ; Depression F32.9 ; Insomnia G47.00 ; Invasive lobular carcinoma of right breast in female C50.911 ; Cervical radiculopathy M54.12 ; Hyperlipidemia, unspecified hyperlipidemia type E78.5 and Former smoker Z87.891 Jayden Henriquez III, MD [address] [place] [address] [place] [address] 11/15/2024 Jayden Henriquez Multiple sclerosis G 35 ; Depression F32.9 ; Insomnia G47.00 ; Episodic tension-type headache, not intractable G44.219 ; Invasive lobular carcinoma of right breast in female C50.911 ; Cervical radiculopathy M54.12 ; Former smoker Z87.891 and Acute bronchitis, unspecified organism J20.9 Jayden Henriquez III, MD [address] [place] [address] [place] [address] 12/13/2024 Jayden Henriquez Multiple sclerosis G 35 ; Depression F32.9 ; Insomnia G47.00 ; Episodic tension-type headache, not intractable G44.219 ; Invasive lobular carcinoma of right breast in female C50.911 and Former smoker Z87.891 Jayden Henriquez III, MD [address] [place] [address] [place] [address] 12/25/2024 Jayden Henriquez Multiple sclerosis G 35 ; Fatigue R53.83 ; COPD (chronic obstructive pulmonary disease) J44.9 ; Hyperlipidemia, unspecified hyperlipidemia type E78.5 ; Depression F32.9 ; Episodic tension-type headache, not intractable G44.219 ; Insomnia G47.00 ; Cervical radiculopathy M54.12 ; Invasive lobular carcinoma of right breast in female C50.911 and Former smoker Z87.891 Jayden Henriquez III, MD [address] [place] [address] [place] [address] 12/29/2024 Jayden Henriquez Multiple sclerosis G 35 ; Family history of dilated cardiomyopathy Z82.49 ; Depression F32.9 ; Insomnia G47.00 ; Episodic tension-type headache, not intractable G44.219 ; Invasive lobular carcinoma of right breast in female C50.911 and Cervical radiculopathy M54.12 Jayden Henriquez III, MD [address] [place] [address] [place] [address] 01/17/2025 Jayden Henriquez Multiple sclerosis G 35 ; Depression F32.9 ; Insomnia G47.00 ; Episodic tension-type headache, not intractable G44.219 ; Cervical radiculopathy M54.12 ; Invasive lobular carcinoma of right breast in female C50.911 ; COPD (chronic obstructive pulmonary disease) J44.9 ; Former smoker Z87.891 and Family history of dilated cardiomyopathy Z82.49 Jayden Henriquez III, MD [address] [place] [address] [place] [address] 02/14/2025 Jayden Henriquez Multiple sclerosis G 35 ; Depression F32.9 ; Insomnia G47.00 ; Episodic tension-type headache, not intractable G44.219 ; Hyperlipidemia, unspecified hyperlipidemia type E78.5 ; Former smoker Z87.891 and COPD (chronic obstructive pulmonary disease) J44.9 Jayden Henriquez III, MD [address] [place] [address] [place] [address] 03/14/2025 Jayden Henriquez Multiple sclerosis G 35 ; Depression F32.9 ; Insomnia G47.00 ; Episodic tension-type headache, not intractable G44.219 ; Hyperlipidemia, unspecified hyperlipidemia type E78.5 ; Invasive lobular carcinoma of right breast in female C50.911 ; Cervical radiculopathy M54.12 ; Former smoker Z87.891 ; COPD (chronic obstructive pulmonary disease) J44.9 and Family history of dilated cardiomyopathy Z82.49 Jayden Henriquez III, MD [address] [place] [address] [place] [address] 04/27/2025 Jayden Henriquez Multiple sclerosis G 35 ; Former smoker Z87.891 ; Depression F32.9 ; Insomnia G47.00 ; Episodic tension-type headache, not intractable G44.219 ; Hyperlipidemia, unspecified hyperlipidemia type E78.5 ; COPD (chronic obstructive pulmonary disease) J44.9 ; Family history of dilated cardiomyopathy Z82.49 ; Invasive lobular carcinoma of right breast in female C50.911 and Cervical radiculopathy M54.12 Jayden Henriquez III, MD [address] [place] [address] [place] [address] 06/11/2025 Jayden Henriquez Tobacco dependence F17.200 ; Multiple sclerosis G35 ; Depression F32.9 ; Genital herpes A60.00 ; Insomnia G47.00 ; Episodic tension-type headache, not intractable G44.219 ; Family history of dilated cardiomyopathy Z82.49 and COPD (chronic obstructive pulmonary disease) J44.9 Jyaden Henriquez III, MD [address] [place] [address] [place] [address] 07/09/2025 Jayden Henriquez Multiple sclerosis G 35 ; Tobacco dependence F17.200 ; Cervical radiculopathy M54.12 and Invasive lobular carcinoma of right breast in female C50.911 Jayden Henriquez III, MD [address] [place] [address] [place] [address] 08/28/2024 Jayden Henriquez III, MD [address] [place] [address] [place] [address] 12/26/2024 Jayden Henriquez III, MD [address] [place] [address] [place] [address] 03/05/2025 Jayden Henriquez III, MD [address] [place] [address] [place] [address] 03/05/2025 Jayden Henriquez III, MD [address] [place] [address] [place] [address] 03/23/2025 Jayden Henriquez Assessments Encounter Date Diagnosis (ICD Code) Assessment Notes Treat ment Notes Treatment Clinical Notes 09/05/2024 Depression (ICD-10 - F32.9) She is [...] this time.Her next infusion was scheduled today. 12/25/2024 Fatigue (ICD-10 - R53.83) He complains of worsening fatigue for several months. I did not see any objective signs of multiple sclerosis worsening today. She did not seem overly depressed compared to her baseline. Conference blood work was ordered to evaluate her metabolic status.A sleep study may be necessary. 12/25/2024 Multiple sclerosis (ICD-10 - G35) She has had no exacerbation of multiple sclerosis and is asymptomatic at this time.Her next infusion was scheduled. 12/29/2024 Multiple sclerosis (ICD-10 - G35) She has had no exacerbation of multiple sclerosis and is asymptomatic at this time.Her next infusion was scheduled. 12/29/2024 Family history of dilated cardiomyopathy (ICD-10 - Z82.49) She will have an EKG and an echocardiogram. 01/17/2025 Depression (ICD-10 - F32.9) She is being treated for this problem and seems to have recovered completely. She is compliant with all of her medications. 01/17/2025 Multiple sclerosis (ICD-10 - G35) She has had no exacerbation of multiple sclerosis and is asymptomatic at this time.Her infusion of Tysabri was given without any Difficulty. 02/14/2025 Depression (ICD-10 - F32.9) She is being treated for this problem and seems to have recovered completely. She is compliant with all of her medications. 02/14/2025 Multiple sclerosis (ICD-10 - G35) She has had no exacerbation of multiple sclerosis and is asymptomatic at this time.Her infusion of Tysabri was given without any Difficulty. 03/14/2025 Depression (ICD-10 - F32.9) She is being treated for this problem and seems to have recovered completely. She is compliant with all of her medications. 03/14/2025 Multiple sclerosis (ICD-10 - G35) She has had no exacerbation of multiple sclerosis and is asymptomatic at this time.Her infusion of Tysabri was given without any Difficulty. 04/27/2025 Former smoker (ICD-10 - Z87.891) We made a plan to continue abstinence in times of stress or illness. 04/27/2025 Multiple sclerosis (ICD-10 - G35) She has had no exacerbation of multiple sclerosis and is asymptomatic at this time.Her infusion of Tysabri was given without any Difficulty. 06/11/2025 Multiple sclerosis (ICD-10 - G35) She has had no exacerbation of multiple sclerosis and is asymptomatic at this time.Her infusion of Tysabri was given without any Difficulty. 06/11/2025 Tobacco dependence (ICD-10 - F17.200) I have strongly recommended smoking cessation. We have discussed several strategies for accomplishing this. 07/09/2025 Multiple sclerosis (ICD-10 - G35) She has had no exacerbation of multiple sclerosis and is asymptomatic at this time.Her infusion of Tysabri was given without any Difficulty. 07/09/2025 Tobacco dependence (ICD-10 - F17.200) I have strongly recommended smoking cessation. We have discussed several strategies for accomplishing this. 09/05/2024 Insomnia (ICD-10 - G47.00) I have [...] She is no longer requiring prescription medication. 12/25/2024 COPD (chronic obstructive pulmonary disease) (ICD-10 - J44.9) On examination today her breath sounds were very diminished in all lung andrade, but there was no wheezing or rales, or rhonchi. She was moving air well at a rate of 14 breast per minute, without distress. 12/29/2024 Depression (ICD-10 - F32.9) She is being treated for this problem and seems to have recovered completely. She is compliant with all of her medications. 01/17/2025 Insomnia (ICD-10 - G47.00) I have recommended she use either an antihistamine or melatonin. She is no longer requiring prescription medication. 02/14/2025 Insomnia (ICD-10 - G47.00) I have recommended she use either an antihistamine or melatonin. She is no longer requiring prescription medication. 03/14/2025 Insomnia (ICD-10 - G47.00) I have recommended she use either an antihistamine or melatonin. She is no longer requiring prescription medication. 04/27/2025 Depression (ICD-10 - F32.9) She is being treated for this problem and seems to have recovered completely. She is compliant with all of her medications. 06/11/2025 Depression (ICD-10 - F32.9) She is being treated for this problem and seems to have recovered completely. She is compliant with all of her medications. 07/09/2025 Cervical radiculopathy (ICD-10 - M54.12) She [...] She denies having any recent headaches lately. 12/25/2024 Hyperlipidemia, unspecified hyperlipidemia type (ICD-10 - E78.5) Comprehensive blood work was ordered today. 12/29/2024 Insomnia (ICD-10 - G47.00) I have recommended she use either an antihistamine or melatonin. She is no longer requiring prescription medication. 01/17/2025 Episodic tension-type headache, not intractable (ICD-10 - G44.219) She denies having any recent headaches lately. 02/14/2025 Episodic tension-type headache, not intractable (ICD-10 - G44.219) She denies having any recent headaches lately. 03/14/2025 Episodic tension-type headache, not intractable (ICD-10 - G44.219) She denies having any recent headaches lately. 04/27/2025 Insomnia (ICD-10 - G47.00) I have recommended she use either an antihistamine or melatonin. She is no longer requiring prescription medication. 06/11/2025 Genital herpes (ICD-10 - A60.00) This problem is stable and no change in her regimen is necessary. She has had no flareups lately. She reports episodes 3 times a year. Her valacyclovir a prescription is current. 07/09/2025 Invasive lobular carcinoma of right breast in female (ICD-10 - C50.911) She will continue on anastrozole. There was no sign of a new primary breast cancer or recurrence today. She will continue on zoledronic acid calcium and vitamin D. She will continue to do breast self-examination. 09/05/2024 Cervical radiculopathy (ICD-10 - M54.12) She [...] primary breast cancer or recurrence today. 12/25/2024 Depression (ICD-10 - F32.9) She is being treated for this problem and seems to have recovered completely. She is compliant with all of her medications. 12/29/2024 Episodic tension-type headache, not intractable (ICD-10 - G44.219) She denies having any recent headaches lately. 01/17/2025 Cervical radiculopathy (ICD-10 - M54.12) She is beginning to respond to treatment with decreasing pain and more mobility. Her treatment will continue for another week. No change in her regimen was needed. 02/14/2025 Hyperlipidemia, unspecified hyperlipidemia type (ICD-10 - E78.5) Comprehensive blood work was ordered today. 03/14/2025 Hyperlipidemia, unspecified hyperlipidemia type (ICD-10 - E78.5) Comprehensive blood work was ordered today. 04/27/2025 Episodic tension-type headache, not intractable (ICD-10 - G44.219) She denies having any recent headaches lately. 06/11/2025 Insomnia (ICD-10 - G47.00) I have recommended she use either an antihistamine or melatonin. She is no longer requiring prescription medication. 09/05/2024 Former smoker (ICD-10 - Z87.891) We [...] in times of stress or illness. 12/25/2024 Episodic tension-type headache, not intractable (ICD-10 - G44.219) She denies having any recent headaches lately. 12/29/2024 Invasive lobular carcinoma of right breast in female (ICD-10 - C50.911) She will continue on anastrozole. There was no sign of a new primary breast cancer or recurrence today. 01/17/2025 Invasive lobular carcinoma of right breast in female (ICD-10 - C50.911) She will continue on anastrozole. There was no sign of a new primary breast cancer or recurrence today. 02/14/2025 Former smoker (ICD-10 - Z87.891) We made a plan to continue abstinence in times of stress or illness. 03/14/2025 Invasive lobular carcinoma of right breast in female (ICD-10 - C50.911) She will continue on anastrozole. There was no sign of a new primary breast cancer or recurrence today. 04/27/2025 Hyperlipidemia, unspecified hyperlipidemia type (ICD-10 - E78.5) Comprehensive blood work was ordered today. 06/11/2025 Episodic tension-type headache, not intractable (ICD-10 - G44.219) She denies having any recent headaches lately. 09/05/2024 Multiple sclerosis (ICD-10 - G35) She [...] in times of stress or illness. 12/25/2024 Insomnia (ICD-10 - G47.00) I have recommended she use either an antihistamine or melatonin. She is no longer requiring prescription medication. 12/29/2024 Cervical radiculopathy (ICD-10 - M54.12) She is beginning to respond to treatment with decreasing pain and more mobility. Her treatment will continue for another week. No change in her regimen was needed. 01/17/2025 COPD (chronic obstructive pulmonary disease) (ICD-10 - J44.9) On examination today her breath sounds were very diminished in all lung andrade, but there was no wheezing or rales, or rhonchi. She was moving air well at a rate of 14 breast per minute, without distress. 02/14/2025 COPD (chronic obstructive pulmonary disease) (ICD-10 - J44.9) On examination today her breath sounds were very diminished in all lung andrade, but there was no wheezing or rales, or rhonchi. She was moving air well at a rate of 14 breast per minute, without distress. 03/14/2025 Cervical radiculopathy (ICD-10 - M54.12) She is beginning to respond to treatment with decreasing pain and more mobility. Her treatment will continue for another week. No change in her regimen was needed. 04/27/2025 COPD (chronic obstructive pulmonary disease) (ICD-10 - J44.9) On examination today her breath sounds were very diminished in all lung andrade, but there was no wheezing or rales, or rhonchi. She was moving air well at a rate of 14 breast per minute, without distress. 06/11/2025 Family history of dilated cardiomyopathy (ICD-10 - Z82.49) She will have an EKG and an echocardiogram. 11/13/2024 Hyperlipidemia, unspecified hyperlipidemia type (ICD-10 - E78.5) Her total cholesterol and triglycerides are quite elevated. She did not wish to be treated for this. She has reformed her diet. A fasting lipid profile will be done prior to her next visit. We will use the [employer] cardiovascular risk estimate her to assess her lifetime. Cardiac wrist. 11/15/2024 Acute bronchitis, unspecified organism (ICD-10 - J20.9) Is beginning to recover but is still short of breath with exertion. Her oxygen saturation levels were within normal limits as was her blood pressure. He will keep in touch by telephone and let me know if her respiratory status deteriorates. 12/25/2024 Cervical radiculopathy (ICD-10 - M54.12) She is beginning to respond to treatment with decreasing pain and more mobility. Her treatment will continue for another week. No change in her regimen was needed. 01/17/2025 Former smoker (ICD-10 - Z87.891) We made a plan to continue abstinence in times of stress or illness. 03/14/2025 Former smoker (ICD-10 - Z87.891) We made a plan to continue abstinence in times of stress or illness. 04/27/2025 Family history of dilated cardiomyopathy (ICD-10 - Z82.49) She will have an EKG and an echocardiogram. 06/11/2025 COPD (chronic obstructive pulmonary disease) (ICD-10 - J44.9) On examination today her breath sounds were very diminished in all lung andrade, but there was no wheezing or rales, or rhonchi. She was moving air well at a rate of 14 breast per minute, without distress. 11/13/2024 Former smoker (ICD-10 - Z87.891) We made a plan to continue abstinence in times of stress or illness. 12/25/2024 Invasive lobular carcinoma of right breast in female (ICD-10 - C50.911) She will continue on anastrozole. There was no sign of a new primary breast cancer or recurrence today. 01/17/2025 Family history of dilated cardiomyopathy (ICD-10 - Z82.49) She will have an EKG and an echocardiogram. 03/14/2025 COPD (chronic obstructive pulmonary disease) (ICD-10 - J44.9) On examination today her breath sounds were very diminished in all lung andrade, but there was no wheezing or rales, or rhonchi. She was moving air well at a rate of 14 breast per minute, without distress. 04/27/2025 Invasive lobular carcinoma of right breast in female (ICD-10 - C50.911) She will continue on anastrozole. There was no sign of a new primary breast cancer or recurrence today. 12/25/2024 Former smoker (ICD-10 - Z87.891) We made a plan to continue abstinence in times of stress or illness. 03/14/2025 Family history of dilated cardiomyopathy (ICD-10 - Z82.49) She will have an EKG and an echocardiogram. 04/27/2025 Cervical radiculopathy (ICD-10 - M54.12) She is beginning to respond to treatment with decreasing pain and more mobility. Her treatment will continue for another week. No change in her regimen was needed. Plan Of Treatment Pending Test Test Name Order Date PROFILE, FASTING (COMPREHENSIVE METABOLI C) 08/06/2021 PROFILE, FASTING (COMPREHENSIVE METABOLI C) 12/25/2024 PROFILE, FASTING (COMPREHENSIVE METABOLI C) 12/01/2017 PROFILE, FASTING (COMPREHENSIVE METABOLI C) 05/13/2022 PROFILE, FASTING (COMPREHENSIVE METABOLI C) 12/23/2023 PROFILE, RANDOM (COMPREHENSIVE METABOLIC ) 03/13/2019 PROFILE, RANDOM (COMPREHENSIVE METABOLIC ) 09/02/2022 LIPID PANEL 08/06/2021 LIPID PANEL 12/01/2017 LIPID PANEL 09/02/2022 FREE T4 (FT4) 12/01/2017 TSH (THYROID STIMULATING HORMONE) 2024 TSH (THYROID STIMULATING HORMONE) 2017 CBC w DIFF 05/13/2022 CBC w DIFF 08/06/2021 CBC w DIFF 12/25/2024 CBC w DIFF 03/13/2019 CBC w DIFF 09/02/2022 CBC w DIFF 12/01/2017 SED RATE (ESR) 12/01/2017 SED RATE (ESR) 12/23/2023 SED RATE (ESR) 03/13/2019 CLOSTRIDIUM DIFF TOXIN A&B (C DIFF) 11/21 LEUKEMIA & LYMPHOMA EVAL (LLE) BLOOD 04/2022 CARBOHYDRATE ANTIGEN 19-9 (CA 19-9) 09/2023 XR CHEST 2 VIEW PA & LAT 12/25/2024 HIDA SCAN GB WITH CCK 03/18/2020 Echocardiogram 12/29/2024 US BREAST RIGHT 05/31/2024 CBC WITH AUTO DIFF 12/23/2023 Lipid Panel 05/13/2022 Stool Culture 12/09/2022 ECG 12 lead EKG 12/25/2024 MM tomosynthesis diagnostic BI Next Appt Details Provider Name:Jayden Henriquez , 08/06/2025 09:00:00 AM, [address] [facility] [place], [place], [address], Provider Name:Jayden Henriquez , 09/11/2025 09:45:00 AM, [address] [facility] [place], [place], [address], Insurance Providers Payer Name Payer Address Payer Phone Subscriber Number Group Number Insured Name Patient Relationship to Insured Coverage Start Date Coverage End Date MEDICARE NGS [address] [place] [address] [id number] Salome Spence Self - patient is the insured MED[place] [address] [place] [id number] Salome Spence Self - patient is the insured Medical (General) History Medical History History ICD Code multiple sclerosis age 33 depression/anxiety genital herpes age 22 onset of menopause 2014 after hysterecto my tobacco dependence degenerative disc disease cervical spine 2019 [id number] stage II invasi ve breast cancer left, [...] [facility], Dr. Mercedes for blockage 20 14 [id number] Hysterectomy without oophorectomy 1991 Hospitalization History Reason Date(Month/Year) No history
== END 2025-07-11 12:18 | disposition home or self-care (01) ==
LOC: HO.HSM 11:48
PROVIDERS: PCP Internal Medicine Medical Oncology; Referring Provider Internal Medicine Medical Oncology; Visit Provider Registered Nurse
DX: G35.A Relapsing-remitting multiple sclerosis (principal)
CPT/HCPCS: 99214